=== PATIENT | female | born 2000 | race Two or more races ===

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

== ENCOUNTER 2021-02-03 07:49 | Outpatient (REF) | payer OTHER, SELFPAY ==
[2021-02-03 08:10] LABS: COVID-19 Test Negative (Negative)
== END 2021-02-03 07:50 | disposition home or self-care (01) ==
LOC: HO.EMPCOV 07:49
PROVIDERS: Visit Provider Internal Medicine
DX: Z20.822 Contact with and (suspected) exposure to COVID-19 (principal)
CPT/HCPCS: 36415; 87635; C9803

== ENCOUNTER → 2021-05-25 11:22 | Outpatient (BNVA) | payer OTHER, SELFPAY | DX: Z13.89 Encounter for screening for other disorder (principal); Z20.822 Contact with and (suspected) exposure to COVID-19 | CPT/HCPCS: 36415; 87635; C9803 ==

== ENCOUNTER 2021-07-23 17:36 | Emergency (ER) | payer OTHER, SELFPAY ==
[2021-07-23 17:47] VITALS: BP 119/53; BP 120/75; PULSE 82; PULSE 84; RESP 16; TEMP 37.2; O2SAT 100; O2SAT 97; BMI 31.1
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
[2021-07-23] MEDS: Ibuprofen 600 MG TABLET PO (18:39)
[2021-07-23] MEDS: Acetaminophen 325 MG TABLET 975 MG PO (18:39)
== END 2021-07-23 18:27 | disposition home or self-care (01) ==
PROVIDERS: Emergency Provider Emergency Medicine Emergency Medical Services; PCP Pediatrics
DX: S16.1XXA Strain of muscle, fascia and tendon at neck level, initial encounter (principal); S40.021A Contusion of right upper arm, initial encounter; M54.2 Cervicalgia; M79.621 Pain in right upper arm; V43.62XA Car passenger injured in collision with other type car in traffic accident, initial encounter; Y93.9 Activity, unspecified; Y92.410 Unspecified street and highway as the place of occurrence of the external cause; Y99.9 Unspecified external cause status; Z79.899 Other long term (current) drug therapy
CPT/HCPCS: 99283; 99284

== ENCOUNTER 2021-08-15 16:57 | Outpatient (REF) | payer OTHER, SELFPAY | END 2021-08-15 16:58 | disposition home or self-care (01) | LOC: HO.LNP 16:57 | PROVIDERS: Visit Provider Obstetrics & Gynecology | DX: Z13.89 Encounter for screening for other disorder (principal) | CPT/HCPCS: 87480; 87510; 87660 ==

== ENCOUNTER 2021-08-16 12:15 | Outpatient (REF) | payer OTHER, SELFPAY ==
[2021-08-16 12:26] LABS: MANUAL DIFF FLAG NO
[2021-08-16 12:40] LABS: Basophils Percent Auto 0.4 % (0-2); Eosinophils Absolute Auto 0.1 X10*3/uL (0.0-0.4); Eosinophils Percent Auto 1.5 % (0-4); Hematocrit 39.4 % (37.0-47.0); Hemoglobin 12.9 g/dl (12.0-16.0); Imm Gran Abs Auto 0.02 X10*3/uL (0.00-0.03); Imm Gran Pct Auto 0.2 % (0.0-0.4); Lymphocytes Absolute Auto 2.3 X10*3/uL (1.2-4.9); Lymphocytes Percent Auto 26.8 % (20-40); Mean Corpuscular HGB Conc 32.7 g/dl (31.0-35.0); Mean Corpuscular Hemoglobin 31.5 pg (27.0-33.0); Mean Corpuscular Volume 96.1 fL (80.0-98.0); Mean Platelet Volume 10.5 fL (9.4-12.3); Monocytes Absolute Auto 0.6 X10*3/uL (0.1-1.2); Monocytes Percent Auto 6.9 % (2-11); Neutrophils Absolute Auto 5.46 x10*3/uL (2.0-8.3); Neutrophils Percent Auto 64.2 % (45-73); Platelet Count 329 X10*3/uL (160-400); Red Cell Distribution Width 13.5 % (11.0-16.0); White Blood Count 8.5 X10*3/uL (4.8-10.8)
[2021-08-16 13:32] LABS: Thyroid Stimulating Hormone 0.31 uIU/mL (0.32-4.0)
== END 2021-08-16 12:16 | disposition home or self-care (01) ==
LOC: HO.LAB 12:15
PROVIDERS: PCP Pediatrics; Visit Provider Obstetrics & Gynecology
DX: N93.9 Abnormal uterine and vaginal bleeding, unspecified (principal)
CPT/HCPCS: 36415; 84443; 85025

== ENCOUNTER 2021-08-18 08:23 | Emergency (ER) | payer OTHER, SELFPAY ==
[2021-08-18 08:36] VITALS: BP 127/64; PULSE 82; RESP 16; TEMP 36.6; O2SAT 99; BMI 31.1
--- NOTE | 2021-08-18 09:06 | ED_ITS ---
HPI - URI/Sore Throat General Chief Complaint: Upper Respiratory Symptoms Stated Complaint: VOMTING STUFFY NOSE Time Seen by Provider: 08/18/21 09:05 Source: patient Mode of arrival: ambulatory Limitations: no limitations History of Present Illness HPI Narrative: 20-year-old female came in for evaluation of flu-like symptoms. Patient been having runny nose, sneezing, chills, coughing dry cough. Patient was seen at work connection tested for COVID. Related Data Previous Rx's Medication Instructions Recorded omeprazole 40 mg capsule,delayed 40 mg PO DAILY #14 cap 07/23/20 release ondansetron HCl 4 mg tablet 4 mg PO Q6H PRN #7 tab 07/23/20 (Zofran) Allergies Allergy/AdvReac Type Severity Reaction Status Date / Time No Known Allergies Allergy Verified 07/23/21 18:13 Review of Systems Review of Systems: All other systems are reviewed and are negative Constitutional: Reports as per HPI and Reports no additional constitutional complaints Eyes: Reports as per HPI and Reports no additional eye complaints Reports system reviewed and no additional complaints, except as documented Cardiovascular: Reports as per HPI and Reports no additional cardiovascular complaints Respiratory: Reports as per HPI and Reports no additional respiratory complaints Gastrointestinal: Reports as per HPI and Reports no additional gastrointestinal complaints Genitourinary: Reports no additional female genitourinary complaints Musculoskeletal: Reports no additional musculoskeletal complaints Skin/Breast: Reports system reviewed and no additional complaints, except as docu Psychiatric: Reports no additional psychiatric complaints Endocrine: Reports no additional endocrine complaints Hematologic/Lymphatic: Reports no additional hematologic/lymphatic complaints Allergic/Immunologic: Reports no additional allergic/immunologic complaints Reports system reviewed and no additional complaints, except as documented and Reports Abnormal speech present [facility] Past Medical History Medical History Asthma Syncope Social History Social History Alcohol intake: never Advance Directives: No Advance Directives Information Provided: No Physical Exam Vital Signs: Vital Signs: Last Vital Signs Temp 97.8 F 08/18/21 08:36 Pulse 82 08/18/21 08:36 Resp 16 08/18/21 08:36 BP 127/64 08/18/21 08:36 Pulse Ox 99 08/18/21 08:36 Body Mass Index 31.1 Vital signs have been reviewed as appeared to be correct. Blood pressure normal. Heart rate normal. Respiration rate normal. Temperature normal. Oxygen saturation normal. Appearance: Alert. Oriented X3. No acute distress. Head: Normal external exam. Normocephalic. Atraumatic. No [place] signs noted. No raccoon eyes noted Eyes: PERRLA. EOMI. Conjunctiva and sclera normal. Eyelids normal. ENT: TM's Normal. Pharynx normal. Uvula midline. Moist mucous membranes. No trismus noted. No drooling noted. No muffled voice noted. Neck: Normal inspection. Neck supple. FROM. No adenopathy. Thyroid Normal. No meningeal signs. No neck mass noted. CVS: Normal heart rate and rhythm. Heart sound normal. No murmurs noted. Pulses normal throughout. Respiratory: No respiratory distress. Painless inspiration. Breath sounds normal. No wheezes/rales/rhonchi noted. Chest nontender. No accessory muscle usage noted or decreased air movement noted. Abdomen: Soft and nontender. Bowel sounds normal in all 4 quadrants. No distention noted. No organomegaly noted. No visible injury noted. Back: No CVA tenderness. Full range of motion noted. Skin: Skin warm and dry. Normal skin color. Normal skin turgor. No rashes/lesions/lacerations noted. Extremities: No lower extremity edema. Extremities exhibit normal range of motion. Extremities nontender. Neuro: Oriented X 3. Cranial nerve exam: II-XII are grossly intact No motor deficit. No sensory deficit. Reflexes normal. Course Course Course Narrative: Upper respiratory symptoms likely due to viral infection. Discharge Plan Discharge Clinical Impression: Viral infection Patient Disposition: Home, Self-Care Instructions: Viral Syndrome (ED) Prescriptions: No Action ondansetron HCl [Zofran] 4 mg tablet 4 mg PO Q6H PRN (Reason: nausea and vomiting) Qty: 7 RF: 0 omeprazole 40 mg capsule,delayed release(DR/EC) 40 mg PO DAILY Qty: 14 RF: 0 Referrals: Ca Yousif MD [Primary Care Provider] - 2 days Stand Alone Forms: Work/School Release
[2021-08-18 09:49] LABS: COVID-19 Test Negative (Negative)
== END 2021-08-18 10:11 | disposition home or self-care (01) ==
PROVIDERS: Emergency Provider Emergency Medicine; PCP Pediatrics
DX: B34.9 Viral infection, unspecified (principal); J45.909 Unspecified asthma, uncomplicated; Z20.822 Contact with and (suspected) exposure to COVID-19
CPT/HCPCS: 36415; 87635; 99283

== ENCOUNTER 2021-11-04 01:49 | Emergency (ER) | payer OTHER, SELFPAY ==
[2021-11-04 02:31] VITALS: BP 109/58; PULSE 62; RESP 18; TEMP 37.1; O2SAT 100; BMI 64.5
[2021-11-04 03:22] LABS: Hematocrit 34.2 % (37.0-47.0); Hemoglobin 11.9 g/dl (12.0-16.0); Mean Corpuscular HGB Conc 34.8 g/dl (31.0-35.0); Mean Corpuscular Hemoglobin 32.2 pg (27.0-33.0); Mean Corpuscular Volume 92.4 fL (80.0-98.0); Mean Platelet Volume 10.8 fL (9.4-12.3); Platelet Count 230 X10*3/uL (160-400); Red Cell Distribution Width 12.8 % (11.0-16.0); White Blood Count 5.4 X10*3/uL (4.8-10.8)
[2021-11-04] MEDS: Ondansetron ODT 4 MG TAB.RAPDIS TRANSLINGU (03:26)
[2021-11-04 04:03] LABS: Alanine Aminotransferase 13 U/L (0-31); Albumin Level 4.2 g/dL (3.5-5.0); Alkaline Phosphatase 44 U/L (39-117); Anion Gap 15 (12-20); Aspartate Amino Transferase 17 U/L (5-31); Bilirubin Total 0.2 mg/dL (0.0-1.0); Blood Urea Nitrogen 6 mg/dL (9-16); Calcium 9.6 mg/dL (8.4-10.2); Carbon Dioxide 21 mmol/L (22-29); Chloride 107 mmol/L (96-108); Estimated Glomerular Filt Rate > 60; Glucose Random 122 mg/dL (60-115); Potassium 3.9 mmol/L (3.3-5.1); Sodium 139 mmol/L (135-145); Total Protein 7.7 g/dL (6.5-8.0)
--- NOTE | 2021-11-04 04:42 | ED_ITS ---
HPI - Abdominal Pain General Chief Complaint: Abdominal Pain Stated Complaint: can't keep food down, COVID + Time Seen by Provider: 11/04/21 02:24 Source: patient Mode of arrival: ambulatory History of Present Illness HPI narrative: 21-year-old female with known COVID-19 comes in with nausea and although she is able to drink water she is unable to tolerate very much food which is resulted in her feeling somewhat lightheaded and experiencing stomach pain. Otherwise, she denies any shortness of breath/palpitations/urinary symptoms. Related Data Previous Rx's Medication Instructions Recorded omeprazole 40 mg capsule,delayed 40 mg PO DAILY #14 cap 07/23/20 release ondansetron HCl 4 mg tablet 4 mg PO Q6H PRN #7 tab 07/23/20 (Zofran) ondansetron 4 mg disintegrating 4 mg PO Q6H PRN #7 tab 11/04/21 tablet Allergies Allergy/AdvReac Type Severity Reaction Status Date / Time No Known Allergies Allergy Verified 07/23/21 18:13 Review of Systems Review of Systems Pertinent positives and negatives as stated in HPI 10 point review of systems is otherwise negative. Physical Exam Vital Signs: Vital Signs: Last Vital Signs Temp 98.8 F 11/04/21 02:31 Pulse 62 11/04/21 02:31 Resp 18 11/04/21 02:31 BP 109/58 L 11/04/21 02:31 Pulse Ox 100 11/04/21 02:31 BMI result Body Mass Index 64.5 VITAL SIGNS: Reviewed. GENERAL: Well developed, well nourished, in no acute distress. HEAD: Normocephalic/atraumatic EYES: PERRLA, EOMI LUNGS: Normal breath sounds. No adventitious sounds or accessory muscle use. SpO2<100> CARDIOVASCULAR: Regular rate and rhythm without noted murmurs ABDOMEN: Soft, non-tender, non-distended with bowel sounds. NEUROLOGIC: Alert and oriented x 4. Course Course Course Narrative: 21-year-old female with history and clinical presentation consistent with COVID-19 positivity and feelings of nausea and vomiting that after receiving Zofran and on re-evaluation patient states that she feels much better. She was noted to tolerate oral intake prior to discharge and is other hinton discharged home in stable condition. MDM - Abdominal Pain Lab Data Result diagrams: 11/04/21 03:17 11/04/21 03:17 Labs: Lab Results 11/04/21 11/04/21 Range/Units 03:17 03:17 WBC 5.4 (4.8-10.8) X10*3/uL RBC 3.70 L (4.20-5.50) X10*6/uL Hgb 11.9 L (12.0-16.0) g/dl Hct 34.2 L (37.0-47.0) % MCV 92.4 (80.0-98.0) fL MCH 32.2 (27.0-33.0) pg MCHC 34.8 (31.0-35.0) g/dl RDW 12.8 (11.0-16.0) % Plt Count 230 D (160-400) X10*3/uL MPV 10.8 (9.4-12.3) fL Absolute Nucleated RBC 0.000 (0.0-0.012) X10*3/uL Nucleated RBC % (auto) 0.0 (0.0-0.2) /100WBC Sodium 139 (135-145) mmol/L Potassium 3.9 (3.3-5.1) mmol/L Chloride 107 (96-108) mmol/L Carbon Dioxide 21 L (22-29) mmol/L Anion Gap 15 (12-20) BUN 6 L (9-16) mg/dL Creatinine 0.72 (0.5-1.4) mg/dL Estim Creat Clear Calc 185.0 Estimated GFR > 60 Random Glucose 122 H (60-115) mg/dL Calcium 9.6 (8.4-10.2) mg/dL Total Bilirubin 0.2 (0.0-1.0) mg/dL AST 17 (5-31) U/L ALT 13 (0-31) U/L Alkaline Phosphatase 44 D (39-117) U/L Total Protein 7.7 (6.5-8.0) g/dL Albumin 4.2 (3.5-5.0) g/dL Discharge Plan Discharge Clinical Impression: Viral syndrome, Lab test positive for detection of COVID-19 virus, Nausea & vomiting Patient Disposition: Home, Self-Care Instructions: Acute Nausea and Vomiting (ED), Viral Syndrome (ED), COVID-19 (Coronavirus Disease 2019) (ED) Additional Instructions: 1. You must continue to isolate as per all state and Federal guidelines due to you being COVID-19 positive. 2. Increase fluid hydration especially with water. 3. You have been provided with a medication that should control your nausea so that you can rehydrate. Return to the ER for acute worsening of symptoms. Prescriptions: New ondansetron 4 mg tablet,disintegrating 4 mg PO Q6H PRN (Reason: nausea and vomiting) Qty: 7 RF: 0 No Action ondansetron HCl [Zofran] 4 mg tablet 4 mg PO Q6H PRN (Reason: nausea and vomiting) Qty: 7 RF: 0 omeprazole 40 mg capsule,delayed release(DR/EC) 40 mg PO DAILY Qty: 14 RF: 0 PMFSH Past Medical History Source: nursing notes reviewed Medical History Asthma Syncope Social History Social History Alcohol intake: never Advance Directives: No Advance Directives Information Provided: Yes
== END 2021-11-04 05:08 | disposition home or self-care (01) ==
PROVIDERS: Emergency Provider Student in an Organized Health Care Education/Training Program
DX: U07.1 COVID-19 (principal); B34.9 Viral infection, unspecified; R11.2 Nausea with vomiting, unspecified
CPT/HCPCS: 36415; 80053; 85027; 99282; 99283

== ENCOUNTER 2022-01-03 09:38 | Emergency (ER) | payer OTHER, SELFPAY ==
[2022-01-03 11:42] VITALS: BP 123/96; PULSE 62; RESP 18; TEMP 36.4; O2SAT 99; BMI 28.3
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
== END 2022-01-03 12:13 | disposition home or self-care (01) ==
PROVIDERS: Emergency Provider Emergency Medicine Emergency Medical Services; PCP Pediatrics
DX: Z04.1 Encounter for examination and observation following transport accident (principal); M54.50 Low back pain, unspecified
CPT/HCPCS: 99283

== ENCOUNTER 2022-01-18 15:08 | Emergency (ER) | payer OTHER, SELFPAY ==
--- NOTE | ~2022-01-18 | XR_ITS ---
EXAMINATION: XR CHEST CLINICAL INFORMATION: Atypical pneumonia. COMPARISON: Chest x-ray 03/02/2019 TECHNIQUE: Frontal portable view of the chest was obtained. 4:24 PM FINDINGS: No significant abnormality is noted involving the heart, lungs, mediastinum, bony thorax or soft tissues. XR/XR chest 1V IMPRESSION: Unremarkable examination.
[2022-01-18 15:35] VITALS: BP 136/69; PULSE 96; RESP 18; TEMP 36.1; O2SAT 100; BMI 28.3
--- NOTE | 2022-01-18 16:06 | ED.NAVMDI ---
HPI - Nausea/Vomiting/Diarrhea General Chief complaint: Nausea/Vomiting/Diarrhea Stated complaint: vomiting/chills Time Seen by Provider: 01/18/22 15:55 Source: patient Mode of arrival: ambulatory Limitations: no limitations History of Present Illness HPI Narrative: 21-year-old female presents to ED for dry cough, chills, body aches, and some vomiting since last night. Patient states her cousin was also had similar symptoms plus diarrhea. Patient denies any chest pain or shortness of breath. Patient had COVID swab done this morning at work [employer] and it was negative. Patient denies any abdominal pain, flank pain, or any dysuria/hematuria. Related Data Previous Rx's Medication Instructions Recorded omeprazole 40 mg capsule,delayed 40 mg PO DAILY #14 cap 07/23/20 release ondansetron HCl 4 mg tablet 4 mg PO Q6H PRN #7 tab 07/23/20 (Zofran) ondansetron 4 mg disintegrating 4 mg PO Q6H PRN #7 tab 11/04/21 tablet acetaminophen 500 mg tablet 500 mg PO Q6H PRN #20 tab 01/03/22 (Tylenol Extra Strength) lidocaine 5 % topical patch 1 patch TOPICAL DAILY PRN #30 ea 01/03/22 (Lidoderm) MDD remove after 12 hours naproxen 500 mg tablet 500 mg PO BID PRN 10 Days #20 tab 01/03/22 ondansetron HCl 4 mg tablet 4 mg PO Q8H PRN 4 Days #12 tab 01/18/22 Allergies Allergy/AdvReac Type Severity Reaction Status Date / Time No Known Allergies Allergy Verified 07/23/21 18:13 Review of Systems Review of Systems: nausea, vomitting, chills, bodyaches, dry cough Yes all other systems are reviewed and are negative PMF Past Medical History Medical History Asthma Syncope Social History Social History Alcohol intake: never Advance Directives: No Advance Directives Information Provided: No Patient : No Physical Exam Vital Signs: Vital Signs: Last Vital Signs Temp 97.0 F 01/18/22 15:35 Pulse 96 01/18/22 15:35 Resp 18 01/18/22 15:35 BP 136/69 01/18/22 15:35 Pulse Ox 100 01/18/22 15:35 BMI result Body Mass Index 28.3 Const: General: cooperative, healthy appearing, comfortable, no acute distress, well developed, alert, awake and Physically active Orientation/consciousness: oriented to place, oriented to time and patient oriented x3 HEENT: Head: Yes normal to inspection, Yes No palpable skull fracture present, Yes normocephalic, Yes atraumatic and No abrasion Ears: hearing grossly normal bilaterally, external ears normal, TM's normal bilaterally, EAC's normal, mastoids normal and no periauricular adenopathy Eyes: General: appearance normal, both eyes and all related structures Neck: Neck: Yes normal visual inspection, Yes full ROM, Yes no lymphadenopathy, Yes no meningeal signs, Yes trachea midline, Yes supple, No anterior neck swelling and No tender Chest: Chest palpation & inspection: normal inspection of the chest and normal palpation of entire chest wall Resp: Effort & Inspection: normal respiratory effort and able to speak in complete sentences Auscultation: clear to auscultation bilaterally Cardio: Jugular venous distension: no JVD Heart sounds: S1 normal heart sound present and S2 normal heart sound present GI: Inspection: Yes normal to inspection and No abdominal wall ecchymosis Palpation (GI): Soft to palpation, not firm, nontender, no guarding and not rigid : General: No CVA tenderness and Yes no CVA tenderness Back/Spine/Pelvis: Back: no CVA tenderness, No CVA tenderness and No back tenderness Skin: General skin exam: no rashes or lesions noted and elasticity normal Neuro: General: oriented to place, oriented to time, patient oriented x3 and no meningeal signs Cranial nerves: Yes CN's II-XII intact bilaterally Extrem: General: Yes normal to inspection and Yes full ROM Psych: Appearance: grossly normal, well kempt and not disheveled Course Course Course Narrative: Patient states normal COVID swab this morning in work connection was negative. . Will do influenza swab. Will order chest xray. Strep and UA/UCG. Reevaluation(s) Reevaluation #1: Influenza swab negative pending chest x-ray. Pending strep. Pending UA. We will do basic labs. Patient denies any abdominal pain and has no abdominal tenderness. Time: 16:37 Reevaluation #2: Patient urine shows blood. Patient states presently she is on her menstruation and does not have any symptoms. No need for any abdominal imaging. Patient does not have any abdominal pain or abdominal tenderness. Not suspecting any abdominal medical or surgical emergent etiology. Patient will be discharged on Zofran. Patient informed to follow-up with primary care provider. Patient informed to return to ED immediately if symptoms worsen. Time: 17:49 MDM - Nausea/Vomiting/Diarrhea MDM Narrative Medical decision making narrative: Viral syndrome. Lab Data Result diagrams: 01/18/22 16:39 01/18/22 16:39 Labs: Lab Results 01/18/22 01/18/22 01/18/22 Range/Units 15:38 16:33 16:39 WBC 9.9 (4.8-10.8) X10*3/uL RBC 4.18 L (4.20-5.50) X10*6/uL Hgb 12.9 (12.0-16.0) g/dl Hct 38.6 (37.0-47.0) % MCV 92.3 (80.0-98.0) fL MCH 30.9 (27.0-33.0) pg MCHC 33.4 (31.0-35.0) g/dl RDW 13.4 (11.0-16.0) % Plt Count 303 D (160-400) X10*3/uL MPV 10.5 (9.4-12.3) fL Immature Gran % (Auto) 0.2 (0.0-0.4) % Neut % (Auto) 85.6 H (45-73) % Lymph % (Auto) 9.3 L (20-40) % [place] % (Auto) 4.3 (2-11) % Eos % (Auto) 0.3 (0-4) % Baso % (Auto) 0.3 (0-2) % Lymph # (Auto) 0.9 L (1.2-4.9) X10*3/uL [place] # (Auto) 0.4 (0.1-1.2) X10*3/uL Eos # (Auto) 0.0 (0.0-0.4) X10*3/uL Baso # (Auto) 0.0 (0.0-0.2) X10*3/uL Abs Immat Gran (auto) 0.02 (0.00-0.03) X10*3/uL Absolute Neuts (auto) 8.5 H (2.0-8.3) x10*3/uL Absolute Nucleated RBC 0.000 (0.0-0.012) X10*3/uL Nucleated RBC % (auto) 0.0 (0.0-0.2) /100WBC Sodium (135-145) mmol/L Potassium (3.3-5.1) mmol/L Chloride (96-108) mmol/L Carbon Dioxide (22-29) mmol/L Anion Gap (12-20) BUN (9-16) mg/dL Creatinine (0.5-1.4) mg/dL Estim Creat Clear Calc Estimated GFR Random Glucose (60-115) mg/dL Calcium (8.4-10.2) mg/dL Total Bilirubin (0.0-1.0) mg/dL AST (5-31) U/L ALT (0-31) U/L Alkaline Phosphatase (39-117) U/L Total Protein (6.5-8.0) g/dL Albumin (3.5-5.0) g/dL Lipase (8-78) U/L Beta HCG, Quant mIU/mL Urine Color Urine Appearance Urine pH (5.0-8.0) Ur Specific [place] (1.005-1.025) Urine Protein (NEG-TRACE) MG/DL Urine Glucose (UA) (NEG) MG/DL Urine Ketones (NEG) MG/DL Urine Blood (NEG) Urine Nitrite (NEG) Ur Leukocyte Esterase (NEG) Urine RBC (0) /HPF Urine WBC (0-4) /HPF Ur Squamous Epith Cells /LPF Urine Bacteria /LPF Urine Test (NEGATIVE) Influenza Type A (ALLEY) Negative (Negative) Influenza Type B (ALLEY) Negative (Negative) Influenza A & B Note See Note S. pyogenes GrpA ALLEY Negative (Negative) 01/18/22 01/18/22 01/18/22 Range/Units 16:39 16:53 16:53 WBC (4.8-10.8) X10*3/uL RBC (4.20-5.50) X10*6/uL Hgb (12.0-16.0) g/dl Hct (37.0-47.0) % MCV (80.0-98.0) fL MCH (27.0-33.0) pg MCHC (31.0-35.0) g/dl RDW (11.0-16.0) % Plt Count (160-400) X10*3/uL MPV (9.4-12.3) fL Immature Gran % (Auto) (0.0-0.4) % Neut % (Auto) (45-73) % Lymph % (Auto) (20-40) % [place] % (Auto) (2-11) % Eos % (Auto) (0-4) % Baso % (Auto) (0-2) % Lymph # (Auto) (1.2-4.9) X10*3/uL [place] # (Auto) (0.1-1.2) X10*3/uL Eos # (Auto) (0.0-0.4) X10*3/uL Baso # (Auto) (0.0-0.2) X10*3/uL Abs Immat Gran (auto) (0.00-0.03) X10*3/uL Absolute Neuts (auto) (2.0-8.3) x10*3/uL Absolute Nucleated RBC (0.0-0.012) X10*3/uL Nucleated RBC % (auto) (0.0-0.2) /100WBC Sodium 140 (135-145) mmol/L Potassium 4.1 (3.3-5.1) mmol/L Chloride 104 (96-108) mmol/L Carbon Dioxide 25 (22-29) mmol/L Anion Gap 15 (12-20) BUN 8 L (9-16) mg/dL Creatinine 0.78 (0.5-1.4) mg/dL Estim Creat Clear Calc 105.7 Estimated GFR > 60 Random Glucose 102 (60-115) mg/dL Calcium 10.1 (8.4-10.2) mg/dL Total Bilirubin 1.0 (0.0-1.0) mg/dL AST 12 (5-31) U/L ALT 12 (0-31) U/L Alkaline Phosphatase 53 D (39-117) U/L Total Protein 7.7 (6.5-8.0) g/dL Albumin 4.3 (3.5-5.0) g/dL Lipase 7 L (8-78) U/L Beta HCG, Quant < 2 mIU/mL Urine Color YELLOW Urine Appearance CLEAR Urine pH 8.5 H (5.0-8.0) Ur Specific [place] 1.015 (1.005-1.025) Urine Protein 1+ H (NEG-TRACE) MG/DL Urine Glucose (UA) NEG (NEG) MG/DL Urine Ketones NEG (NEG) MG/DL Urine Blood 2+ H (NEG) Urine Nitrite NEG (NEG) Ur Leukocyte Esterase NEG (NEG) Urine RBC 5-9 H (0) /HPF Urine WBC 0 (0-4) /HPF Ur Squamous Epith Cells 2+ /LPF Urine Bacteria NONE /LPF Urine Test NEGATIVE (NEGATIVE) Influenza Type A (ALLEY) (Negative) Influenza Type B (ALLEY) (Negative) Influenza A & B Note S. pyogenes GrpA ALLEY (Negative) Discharge Plan Discharge Clinical Impression: Acute viral syndrome, Gastroenteritis Patient Disposition: Home, Self-Care Instructions: Gastroenteritis (DC), Acute Nausea and Vomiting (ED), Viral Syndrome (ED) Additional Instructions: Your blood work came back normal. Influenza strep test came back normal. CHest xray negative for pneumonia. You-re vital signs are stable. Please follow-up with your primary care provider. Return to the ED for any abdominal pain, dysuria, hematuria, flank pain, shortness of breath, chest pain, coughing up blood, calf pain, sore throat, inability to tolerate solid food/liquid, weakness, dizziness, or any other concerning symptoms. Recommend brat diet ( [place], Rice, applesauce, toast, crackers, and broth.) Prescriptions: New ondansetron HCl 4 mg tablet 4 mg PO Q8H PRN (Reason: nausea and vomiting) 4 Days Qty: 12 0RF No Action ondansetron HCl [Zofran] 4 mg tablet 4 mg PO Q6H PRN (Reason: nausea and vomiting) Qty: 7 0RF omeprazole 40 mg capsule,delayed release(DR/EC) 40 mg PO DAILY Qty: 14 0RF ondansetron 4 mg tablet,disintegrating 4 mg PO Q6H PRN (Reason: nausea and vomiting) Qty: 7 0RF acetaminophen [Tylenol Extra Strength] 500 mg tablet 500 mg PO Q6H PRN (Reason: pain or fever) Qty: 20 0RF lidocaine [Lidoderm] 5 % adhesive patch,medicated 1 patch topical DAILY MDD remove after 12 hours PRN (Reason: pain) Qty: 30 0RF Rx Instructions: leave on most painful area for up to 12 hrs naproxen 500 mg tablet 500 mg PO BID PRN (Reason: pain) 10 Days Qty: 20 0RF Stand Alone Forms: Work/School Release Interventions: ED Discharge Assessment Last Done: 01/18/22 18:01 Discharge Date/Time: 01/18/22 18:03 Print Language: [place]
[2022-01-18 16:20] LABS: Influenza A Negative (Negative); Influenza B2 Negative (Negative)
[2022-01-18 16:44] LABS: MANUAL DIFF FLAG NO
[2022-01-18 16:46] LABS: Basophils Percent Auto 0.3 % (0-2); Eosinophils Percent Auto 0.3 % (0-4); Hematocrit 38.6 % (37.0-47.0); Hemoglobin 12.9 g/dl (12.0-16.0); Imm Gran Abs Auto 0.02 X10*3/uL (0.00-0.03); Imm Gran Pct Auto 0.2 % (0.0-0.4); Lymphocytes Absolute Auto 0.9 X10*3/uL (1.2-4.9); Lymphocytes Percent Auto 9.3 % (20-40); Mean Corpuscular HGB Conc 33.4 g/dl (31.0-35.0); Mean Corpuscular Hemoglobin 30.9 pg (27.0-33.0); Mean Corpuscular Volume 92.3 fL (80.0-98.0); Mean Platelet Volume 10.5 fL (9.4-12.3); Monocytes Absolute Auto 0.4 X10*3/uL (0.1-1.2); Monocytes Percent Auto 4.3 % (2-11); Neutrophils Absolute Auto 8.5 x10*3/uL (2.0-8.3); Neutrophils Percent Auto 85.6 % (45-73); Platelet Count 303 X10*3/uL (160-400); Red Blood Count 4.18 X10*6/uL (4.20-5.50); Red Cell Distribution Width 13.4 % (11.0-16.0); White Blood Count 9.9 X10*3/uL (4.8-10.8)
[2022-01-18] MEDS: Ondansetron ODT 4 MG TAB.RAPDIS TRANSLINGU (16:48)
[2022-01-18] MEDS: Metoclopramide HCl 10 MG TABLET PO (16:49)
[2022-01-18 16:59] LABS: Strep A Nucleic Acid Negative (Negative)
[2022-01-18 17:00] LABS: Appearance Urine CLEAR; Color Urine YELLOW; Glucose Urine UA NEG (NEG); Leukocyte Esterase Urine NEG (NEG); Nitrite Urine NEG (NEG); PH 8.5 (5.0-8.0); Specific Gravity - Urine 1.015 (1.005-1.025); UACC Culture Trigger NO; Urine Blood 2+ (NEG); Urine Ketones NEG (NEG)
[2022-01-18 17:01] LABS: Urine Protein 1+ MG/DL (NEG-TRACE)
[2022-01-18 17:02] LABS: Urine Pregnancy NEGATIVE (NEGATIVE)
[2022-01-18 17:03] LABS: UPreg QC Valid YES
[2022-01-18 17:10] LABS: Alanine Aminotransferase 12 U/L (0-31); Albumin Level 4.3 g/dL (3.5-5.0); Alkaline Phosphatase 53 U/L (39-117); Anion Gap 15 (12-20); Aspartate Amino Transferase 12 U/L (5-31); Blood Urea Nitrogen 8 mg/dL (9-16); Calcium 10.1 mg/dL (8.4-10.2); Carbon Dioxide 25 mmol/L (22-29); Chloride 104 mmol/L (96-108); Creatinine Clr Calc Pharmacy 105.7; Estimated Glomerular Filt Rate > 60; Glucose Random 102 mg/dL (60-115); Lipase 7 U/L (8-78); Potassium 4.1 mmol/L (3.3-5.1); Sodium 140 mmol/L (135-145); Total Protein 7.7 g/dL (6.5-8.0)
[2022-01-18 17:16] LABS: HCG Quantitative < 2 mIU/mL
[2022-01-18 17:41] LABS: Squamous Epithelial Cell Urine 2+ /LPF; WBC Urine 0 /HPF (0-4)
== END 2022-01-18 18:03 | disposition home or self-care (01) ==
PROVIDERS: Physician Assistant; Emergency Provider Emergency Medicine; PCP Pediatrics
DX: A08.4 Viral intestinal infection, unspecified (principal); B34.9 Viral infection, unspecified; R11.2 Nausea with vomiting, unspecified; R19.7 Diarrhea, unspecified; M79.10 Myalgia, unspecified site; Z79.899 Other long term (current) drug therapy; Z20.822 Contact with and (suspected) exposure to COVID-19
CPT/HCPCS: 36415; 71045; 80053; 81001; 81003; 81025; 83690; 84702; 85025; 87502; 87651; 99283

== ENCOUNTER 2022-04-26 03:52 | Emergency (ER) | payer OTHER, SELFPAY ==
[2022-04-26 04:25] VITALS: BP 117/69; PULSE 82; RESP 16; TEMP 36.9; O2SAT 98; BMI 27.4
[2022-04-26 05:44] LABS: COVID-19 Test Negative (Negative); IDNOW Serial# 08D9AD1C; Influenza A Negative (Negative); Influenza B2 Negative (Negative)
== END 2022-04-26 06:44 | disposition left against medical advice (07) ==
PROVIDERS: Emergency Provider Emergency Medicine
DX: R11.2 Nausea with vomiting, unspecified (principal); R53.83 Other fatigue; Z20.822 Contact with and (suspected) exposure to COVID-19
CPT/HCPCS: 87502; 87635; 99281; 99283

== ENCOUNTER 2022-06-19 22:08 | Emergency (ER) | payer OTHER, SELFPAY ==
[2022-06-19 22:19] VITALS: BP 122/71; PULSE 74; RESP 18; TEMP 36.7; O2SAT 99; BMI 27.4
[2022-06-19 22:34] LABS: Appearance Urine Clear; Color Urine Yellow; Glucose Urine UA Negative (Negative); Leukocyte Esterase Urine Trace (Negative); Nitrite Urine Negative (Negative); Specific Gravity - Urine 1.015 (1.005-1.025); Urine Blood Negative (Negative); Urine Ketones Negative (Negative); Urine Protein Negative (Neg-Trace)
[2022-06-19 22:39] LABS: Bacteria Urine None Seen (None Seen); Hyaline Casts Urine 0-2 /LPF (0-2); RBC Urine 0-2 /HPF (0-2); WBC Urine 0-5 /HPF (0-5)
[2022-06-19 22:57] LABS: Urine Pregnancy NEGATIVE (NEGATIVE)
[2022-06-19 22:58] LABS: UPreg QC Valid YES
--- NOTE | 2022-06-19 23:10 | ED_ITS ---
HPI - Female Genitourinary General Chief complaint: Urogenital-Female Stated complaint: UTI? Time Seen by Provider: 06/19/22 22:50 Source: patient Mode of arrival: ambulatory Limitations: no limitations History of Present Illness HPI Narrative: 21-year-old female healthy here with complaints of dysuria x 3 days. Called her OBGYN and was prescribed Diflucan which she took 2 doses of but continues to have symptoms. No vaginal discharge, vaginal odor, pelvic pain, vomiting, fever, flank pain. Patient is sexually active with 1 male partner Related Data Previous Rx's Medication Instructions Recorded omeprazole 40 mg capsule,delayed 40 mg PO DAILY #14 caps 07/23/20 release ondansetron HCl 4 mg tablet 4 mg PO Q6H PRN nausea and 07/23/20 (Zofran) vomiting #7 tabs ondansetron 4 mg disintegrating 4 mg PO Q6H PRN nausea and 11/04/21 tablet vomiting #7 tabs acetaminophen 500 mg tablet 500 mg PO Q6H PRN pain or fever 01/03/22 (Tylenol Extra Strength) #20 tabs lidocaine 5 % topical patch 1 patch topical DAILY PRN pain #30 01/03/22 (Lidoderm) ea naproxen 500 mg tablet 500 mg PO BID PRN pain 10 days #20 01/03/22 tabs ondansetron HCl 4 mg tablet 4 mg PO Q8H PRN nausea and 01/18/22 vomiting 4 days #12 tabs Allergies Allergy/AdvReac Type Severity Reaction Status Date / Time No Known Allergies Allergy Verified 06/19/22 22:14 Review of Systems Review of Systems: Yes all other systems are reviewed and are negative Constitutional: Constitutional: Reports no additional constitutional complaints, Denies body ache(s), Denies chills, Denies fever(s), Denies headache(s) and Denies weakness Eyes: Eyes: Reports no additional eye complaints and Denies change in vision ENT: Reports system reviewed and no additional complaints, except as documented, Denies dizziness, Denies headache(s), Denies nasal congestion, Denies nasal discharge and Denies neck pain Cardiovascular: Cardiovascular: Reports no additional cardiovascular complaints, Denies chest pain, Denies leg edema and Denies dyspnea Respiratory: Respiratory: Reports no additional respiratory complaints, Denies cough and Denies dyspnea Gastrointestinal: Gastrointestinal: Reports no additional gastrointestinal complaints, Denies abdominal pain, Denies diarrhea, Denies nausea and Denies vomiting Genitourinary: Genitourinary: Reports no additional female genitourinary complaints, Reports dysuria, Denies pelvic pain, Denies flank pain, Denies urinary incontinence, Denies urinary hesitancy, Denies urinary urgency and Denies vaginal discharge Musculoskeletal: Musculoskeletal: Reports no additional musculoskeletal complaints, Denies back pain, Denies arthralgias, Denies joint swelling, Denies neck pain, Denies numbness and Denies tingling Integumentary/Breasts: Skin/Breast: Reports system reviewed and no additional complaints, except as docu and Denies rash Neurologic: Reports system reviewed and no additional complaints, except as documented, Denies Abnormal speech present, Denies dizziness, Denies headache(s), Denies numbness, Denies tingling and Denies weakness PMFSH Past Medical History Attestation statement: The following information was validated with the patient. Source: old records reviewed and nursing notes reviewed Medical History Asthma Syncope Social History Social History Alcohol intake: never Advance Directives: No Advance Directives Information Provided: Yes Physical Exam Vital Signs: Vital Signs: Last Vital Signs Temp 98.1 F 06/19/22 22:19 Pulse 74 06/19/22 22:19 Resp 18 06/19/22 22:19 BP 122/71 06/19/22 22:19 Pulse Ox 99 06/19/22 22:19 O2 Del Method 06/19/22 22:19 BMI result Body Mass Index 27.4 Const: General: cooperative, healthy appearing, comfortable and no acute distress Orientation/consciousness: patient oriented x3 Limitations: no limitations HEENT: Head: Yes normal to inspection Ears: hearing grossly normal bilaterally General nose exam: Normal external nose present Face and sinus: Yes normal facial exam Mouth: Normal oral and palatal mucosa present Throat: Yes posterior oropharynx normal Eyes: General: appearance normal, both eyes and all related structures Pupils: Equal, round and reactive pupils present Neck: Neck: Yes normal visual inspection Chest: Chest palpation & inspection: normal inspection of the chest Resp: Effort & Inspection: normal respiratory effort Auscultation: clear to auscultation bilaterally Cardio: Rate: regular rate Rhythm: regular rhythm Peripheral pulses: Peripheral pulses 2+ throughout GI: Inspection: Yes normal to inspection Palpation (GI): Soft to palpation and nontender Auscultation: normal bowel sounds : Other: January RN riding double External Female Exam: normal external appearance Speculum Exam - Vagina: normal appearance of the vagina Speculum Exam - Cervix: normal appearance of the cervix Bimanual exam- vagina & uterus: normal bimanual exam Bimanual Exam- Adnexa, other: normal adnexae Back/Spine/Pelvis: Thoracic/Lumbar Spine: thoracic and lumbar spine normal to inspection Skin: General skin exam: no rashes or lesions noted Neuro: General: patient oriented x3, no focal motor deficits and normal sensation to monofilament Cranial nerves: Yes Equal, round and reactive pupils present Cognition (Neuro): normal cognition Speech: No Abnormal speech present Gait exam (Neuro): Normal gait present Motor exam (neuro): 5/5 motor strength present throughout Extrem: General: Yes normal to inspection Course Course Course Narrative: UA shows no signs of infection. Normal pelvic exam. STI testing and testing for BV and Amber were sent. Patient would like to wait for treatment pending her resolved. She is aware that she may need to return for treatment. Reviewed worrisome signs and symptoms of when to return to the emergency room. Comfortable discharge home. MDM - Female Genitourinary MDM Narrative Medical decision making narrative: 21 year old female who sexually active here with 3 days of dysuria despite completing Diflucan Will need pelvic exam with testing for gonorrhea, chlamydia, BV panel. Medical Records Attestation: I reviewed the patient's medical records. Lab Data Attestation: I reviewed the patient's lab results. Labs: Lab Results 06/19/22 06/19/22 Range/Units 22:17 22:17 Urine Color Yellow Urine Appearance Clear Urine pH 6.0 (5.0-9.0) Ur Specific [place] 1.015 (1.005-1.025) Urine Protein Negative (Neg-Trace) mg/dL Urine Glucose (UA) Negative (Negative) mg/dL Urine Ketones Negative (Negative) mg/dL Urine Blood Negative (Negative) Urine Nitrite Negative (Negative) Ur Leukocyte Esterase Trace H (Negative) Urine RBC 0-2 (0-2) /HPF Urine WBC 0-5 (0-5) /HPF Ur Squamous Epith Cells 3-5 (0-2) /HPF Urine Bacteria None Seen (None Seen) Hyaline Casts 0-2 (0-2) /LPF Urine Test NEGATIVE (NEGATIVE) Discharge Plan Discharge Clinical Impression: Dysuria Patient Disposition: Home, Self-Care Instructions: Dysuria (ED) Additional Instructions: Your urine shows no signs of infection We sent testing for sexually transmitted diseases as well as bacterial vaginosis and yeast. These results take 1-2 days and we will call you if they are positive. Prescriptions: No Action ondansetron HCl [Zofran] 4 mg tablet 4 mg PO Q6H PRN (Reason: nausea and vomiting) Qty: 7 0RF omeprazole 40 mg capsule,delayed release(DR/EC) 40 mg PO DAILY Qty: 14 0RF ondansetron 4 mg tablet,disintegrating 4 mg PO Q6H PRN (Reason: nausea and vomiting) Qty: 7 0RF ondansetron HCl 4 mg tablet 4 mg PO Q8H PRN (Reason: nausea and vomiting) 4 Days Qty: 12 0RF acetaminophen [Tylenol Extra Strength] 500 mg tablet 500 mg PO Q6H PRN (Reason: pain or fever) Qty: 20 0RF lidocaine [Lidoderm] 5 % adhesive patch,medicated 1 patch topical DAILY MDD remove after 12 hours PRN (Reason: pain) Qty: 30 0RF Rx Instructions: leave on most painful area for up to 12 hrs naproxen 500 mg tablet 500 mg PO BID PRN (Reason: pain) 10 Days Qty: 20 0RF Referrals: Ca Yousif MD [Primary Care Provider] - 1 week (as needed)
[2022-06-20 01:18] LABS: CT PCR NOT DETECTED (Not Detect.); NG PCR NOT DETECTED (Not Detect.)
[2022-06-20 11:02] LABS: BV Int Neg Control Negative (Negative); BV Int Pos Control Positive (Positive)
== END 2022-06-19 23:45 | disposition home or self-care (01) ==
PROVIDERS: Nurse Practitioner Family; Emergency Provider Internal Medicine; PCP Pediatrics
DX: N76.0 Acute vaginitis (principal); R30.0 Dysuria; Z79.899 Other long term (current) drug therapy
CPT/HCPCS: 81001; 81025; 87480; 87491; 87510; 87591; 87660; 99282; 99283

== ENCOUNTER 2022-08-04 13:50 | Emergency (ER) | payer OTHER, SELFPAY ==
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
[2022-08-04 14:01] VITALS: BP 128/80; PULSE 85; O2SAT 98
[2022-08-04 14:02] VITALS: BP 112/71; PULSE 70; RESP 18; TEMP 36.7; O2SAT 99
[2022-08-04 14:05] VITALS: BP 112/71; PULSE 80; RESP 18; O2SAT 98; BMI 31.8
--- OUTSIDE RECORDS SUMMARY | 2022-08-04 14:33 | XMS_ITS | Continuity of Care Document ---
:2000 Author Organization [facility] Address [address] [place] [address]- Care Team Providers Name Role Phone Ca Yousif MD Primary Care Physician Encounter [facility] [place] Date(s): 05/25/22 - 07/07/[address] [id number] Attending Physician: Malathi Sahu NP Admitting Physician: Malathi Sahu NP Referring Physician: Malathi Sahu NP Allergies, Adverse Reactions, Alerts No Known Allergies Care Team PersonnelName: Ca Yousif MD Address: [address] [place] [address] [facility] [place], [place] [address]
--- OUTSIDE RECORDS SUMMARY | 2022-08-04 14:33 | XMS_ITS | Continuity of Care Document ---
:2000 Author Organization [facility] Address [address] [place] [id number]- Care Team Providers Name Role Phone Ca Yousif MD Primary Care Physician Encounter [facility] [place] Date(s): 06/09/20 - 06/09/[address] [address] Encounter Diagnosis Headache (Final) - 06/09/20 Discharge Disposition: A-D/C Home Attending Physician: Vickie Gutierrez MD Admitting Physician: Vickie Gutierrez MD Referring Physician: Not on Staff, Referring MD Allergies, Adverse Reactions, Alerts Substance Reaction Severity Status NKA Active Vital Signs Most recent to oldest [Reference Range]: 1 2 Oxygen Saturation [94-100 %] 98 % 96 % (06/09/20 5:30 PM) (06/09/20 1:03 PM) Pulse Rate [55-90 bpm] 74 bpm 53 bpm (06/09/20 5:30 PM) *L* (06/09/20 1:03 PM) Blood Pressure [71-110/30-71 mm Hg] 107/67 mm Hg 130/ 59 mm Hg (06/09/20 5:30 PM) *H* (06/09/20 1:03 PM) Respiratory Rate [16-30 br/min] 20 br/min 16 br/mi n (06/09/20 5:30 PM) (06/09/20 1:03 PM) Temperature [96.8-100.4 DegF] 98.4 DegF 98.4 DegF (06/09/20 5:30 PM) (06/09/20 1:03 PM) Mode of Delivery (Oxygen) Room air Room air (06/09/20 5:30 PM) (06/09/20 1:03 PM) Blood pressure sites Arm, left Arm, left (06/09/20 5:30 PM) (06/09/20 1:03 PM) Temperature Route Oral Oral (06/09/20 5:30 PM) (06/09/20 1:03 PM)
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
[2022-08-04] MEDS: Cyclobenzaprine HCl 5 MG TABLET PO (15:46)
[2022-08-04] MEDS: Ketorolac Tromethamine 30 MG/ML VIAL IM (15:46)
== END 2022-08-04 16:25 | disposition home or self-care (01) ==
PROVIDERS: Emergency Provider Emergency Medicine
DX: Z04.1 Encounter for examination and observation following transport accident (principal); M54.2 Cervicalgia
CPT/HCPCS: 72125; 96372; 99283; 99284; J1885

== ENCOUNTER 2022-08-24 09:12 | Emergency (ER) | payer OTHER, SELFPAY ==
--- NOTE | ~2022-08-24 | XR_ITS ---
EXAMINATION: CR X-RAY FOREARM AND ELBOW RIGHT CLINICAL INFORMATION: Right forearm and elbow pain status post fall. COMPARISON: None TECHNIQUE: 3 views of the right elbow and 2 views of the right forearm were obtained. FINDINGS: There is no acute fracture or dislocation. The joint spaces are unremarkable. The soft tissues are unremarkable. XR/XR forearm RT 2V IMPRESSION: Unremarkable right elbow and forearm.
--- NOTE | ~2022-08-24 | XR_ITS ---
EXAMINATION: CR X-RAY FOREARM AND ELBOW RIGHT CLINICAL INFORMATION: Right forearm and elbow pain status post fall. COMPARISON: None TECHNIQUE: 3 views of the right elbow and 2 views of the right forearm were obtained. FINDINGS: There is no acute fracture or dislocation. The joint spaces are unremarkable. The soft tissues are unremarkable. XR/XR elbow RT 2V IMPRESSION: Unremarkable right elbow and forearm.
[2022-08-24 09:18] VITALS: BP 126/69; PULSE 67; RESP 16; TEMP 36.2; O2SAT 98; BMI 27.4
--- NOTE | 2022-08-24 10:09 | ED.EXTPRO ---
HPI - Extremity Problem General Chief complaint: Extremity Injury, Upper Stated complaint: fall 08/24/22 Time Seen by Provider: 08/24/22 09:52 Source: patient Mode of arrival: ambulatory Limitations: no limitations History of Present Illness HPI Narrative: Pt is an otherwise healthy 21 year old female who presents to the ED for right elbow/forearm pain s/p fall this morning. She states she was walking down the stairs around 0800 this morning when she tripped over her shoes and fell down 9 steps directly onto her right elbow and forearm. She denies any head strike, LOC, or other injuries. She describes having an aching pain around her elbow that radiates down into her forearm with associated swelling and numbness into her hand. She denies any previous injury to the affected extremity. She denies any fevers, chills, pre-syncope/syncope, dizziness, lightheadedness, CP, abdominal pain, and urinary symptoms now and prior to her fall. MD Complaint: extremity pain Onset (ago): hour(s) (2) Pain Consistency: constant Location: right, lower extremity and elbow Quality: aching Radiation: distal Relieving factors: nothing Exacerbating factors: nothing Associated symptoms: denies other symptoms Related Data Previous Rx's Medication Instructions Recorded omeprazole 40 mg capsule,delayed 40 mg PO DAILY #14 caps 07/23/20 release ondansetron HCl 4 mg tablet 4 mg PO Q6H PRN nausea and 07/23/20 (Zofran) vomiting #7 tabs ondansetron 4 mg disintegrating 4 mg PO Q6H PRN nausea and 11/04/21 tablet vomiting #7 tabs acetaminophen 500 mg tablet 500 mg PO Q6H PRN pain or fever 01/03/22 (Tylenol Extra Strength) #20 tabs lidocaine 5 % topical patch 1 patch topical DAILY PRN pain #30 01/03/22 (Lidoderm) ea naproxen 500 mg tablet 500 mg PO BID PRN pain 10 days #20 01/03/22 tabs ondansetron HCl 4 mg tablet 4 mg PO Q8H PRN nausea and 01/18/22 vomiting 4 days #12 tabs metronidazole 500 mg tablet 500 mg PO BID 7 days #14 tabs 06/22/22 acetaminophen 500 mg tablet 500 mg PO Q6H PRN fever or pain 08/04/22 (Tylenol Extra Strength) #14 tabs cyclobenzaprine 5 mg tablet 5 mg PO Q8H PRN pain (scale score 08/04/22 7-10) 5 days #14 tabs lidocaine 5 % topical patch 1 patch topical DAILY PRN pain #30 08/04/22 (Lidoderm) ea naproxen 500 mg tablet 500 mg PO BID PRN pain 10 days #20 08/04/22 tabs acetaminophen 500 mg tablet 1,000 mg PO QID PRN fever or pain 08/24/22 (Tylenol Extra Strength) #14 tabs ibuprofen 800 mg tablet 800 mg PO Q8H PRN pain #14 tabs 08/24/22 Allergies Allergy/AdvReac Type Severity Reaction Status Date / Time No Known Allergies Allergy Verified 08/24/22 09:18 Review of Systems Review of Systems: Constitutional : No recent prior head injury, No fevers, No chills, No HINOJOSA, No dizziness ENT/Mouth : No Ear Pain, No Nasal discharge/drainage Eyes: No Eye Pain, No Swelling, No Redness, No Foreign Body, No Vision Changes Cardiovascular : No Chest Pain, No SOB Respiratory : No Cough Gastrointestinal : No Nausea, No Vomiting, No abdominal Pain Genitourinary : No Dysuria, No Urinary Frequency, No Urinary Incontinence, No Urgency, No Flank Pain Musculoskeletal : + joint pain, No neck stiffness, No back pain/injury Skin : No lacerations Neuro : No unsteady gait, No Paresthesias, No Loss of Consciousness, No altered mental status, No Headache Yes all other systems are reviewed and are negative [facility] Past Medical History Attestation statement: The following information was validated with the patient. Source: old records reviewed, obtained from family and nursing notes reviewed Medical History Asthma Syncope Social History Social History Alcohol intake: never Advance Directives: No Physical Exam Vital Signs: Vital Signs: Last Vital Signs Temp 97.2 F 08/24/22 09:18 Pulse 67 08/24/22 09:18 Resp 16 08/24/22 09:18 BP 126/69 08/24/22 09:18 Pulse Ox 98 08/24/22 09:18 BMI result Body Mass Index 27.4 Vital signs have been reviewed as normal and appeared to be correct. Blood pressure normal. Heart rate normal. Respiration rate normal. Temperature normal. Oxygen saturation normal. Appearance: Alert and oriented x3. No acute distress. Laying comfortably in bed holding right elbow. Head: Normal external exam. Normocephalic. Atraumatic. Eyes: PERRLA. Conjunctiva and sclera normal. Eyelids normal. ENT: Hearing normal. Moist mucous membranes. No trismus noted. No drooling noted. No muffled voice noted. Neck: Normal inspection. Neck supple. FROM. Nontender. CVS: Normal heart rate and rhythm. Heart sound normal. Pulses normal throughout. Respiratory: No respiratory distress. Painless inspiration. Chest nontender. Abdomen: No visible injury noted. Back: Non tender. Normal range of motion. Skin: Skin warm and dry. Normal skin color. Normal skin turgor. No rashes/lesions/lacerations noted. Extremities: No obvious deformities noted. Mild ecchymosis forming over the proximal right forearm. Edema over the right elbow joint. Point tenderness over the right radial head. Tender to palpation over the proximal forearm. FROM of right elbow and wrist. NVI. No obvious ligamentous or tendon injury noted. All other extremities nontender and exhibit normal range of motion. Neuro: Oriented X 3. No focal motor deficits. Speech normal. Muscle tone normal throughout. Course Course Course Narrative: Pt is an otherwise healthy 21 year old female who presents to the ED for right elbow/forearm pain s/p fall this morning. She denies head injury, LOC, pre-syncope/syncope, and any other complaints. VSS. Mild ecchymosis forming over the proximal right forearm. Point tenderness over the right radial head. Tender to palpation over the proximal forearm. FROM of right elbow and wrist. NVI. Ordered x-ray of right elbow and forearm to r/o radial head fracture, proximal radius/ulna fracture, dislocation. No further workup needed for fall as pt was asymptomatic prior to fall and fall was mechanical in nature. Reevaluation(s) Reevaluation #1: X-rays of right elbow and forearm are negative for any fractures, dislocations, acute bony abnormalities. ABRAM wrap placed around right elbow. Discussed alternating Tylenol and ibuprofen for pain, RICE protocol, light ROM. Advised follow up with PCP in the next few days for repeat x-rays. Pt verbalized understanding and agrees to plan. Time: 10:28 MDM - Extremity (Nontraumatic) Lab Data Attestation: I reviewed the patient's lab results. Imaging Data right elbow/forearm xray: Attestation: I personally reviewed and interpreted this imaging study as follows: Radiologist's impression: EXAMINATION: CR X-RAY FOREARM AND ELBOW RIGHT CLINICAL INFORMATION: Right forearm and elbow pain status post fall.? COMPARISON: None? TECHNIQUE: 3 views of the right elbow and 2 views of the right forearm were obtained.? FINDINGS: There is no acute fracture or dislocation. The joint spaces are unremarkable. The soft tissues are unremarkable.? XR/XR forearm RT 2V IMPRESSION: Unremarkable right elbow and forearm. Discharge Plan Discharge Clinical Impression: Fall, Sprain of right elbow Patient Disposition: Home, Self-Care Instructions: How to Use an Elastic Bandage (ED), Elbow Sprain (ED) Prescriptions: New ibuprofen 800 mg tablet 800 mg PO Q8H PRN (Reason: pain) Qty: 14 0RF acetaminophen [Tylenol Extra Strength] 500 mg tablet 1,000 mg PO QID PRN (Reason: fever or pain) Qty: 14 0RF No Action ondansetron HCl [Zofran] 4 mg tablet 4 mg PO Q6H PRN (Reason: nausea and vomiting) Qty: 7 0RF omeprazole 40 mg capsule,delayed release(DR/EC) 40 mg PO DAILY Qty: 14 0RF ondansetron 4 mg tablet,disintegrating 4 mg PO Q6H PRN (Reason: nausea and vomiting) Qty: 7 0RF ondansetron HCl 4 mg tablet 4 mg PO Q8H PRN (Reason: nausea and vomiting) 4 Days Qty: 12 0RF metronidazole 500 mg tablet 500 mg PO BID 7 Days Qty: 14 0RF acetaminophen [Tylenol Extra Strength] 500 mg tablet 500 mg PO Q6H PRN (Reason: fever or pain) Qty: 14 0RF naproxen 500 mg tablet 500 mg PO BID PRN (Reason: pain) 10 Days Qty: 20 0RF cyclobenzaprine 5 mg tablet 5 mg PO Q8H PRN (Reason: pain (scale score 7-10)) 5 Days Qty: 14 0RF lidocaine [Lidoderm] 5 % adhesive patch,medicated 1 patch topical DAILY MDD remove after 12 hours PRN (Reason: pain) Qty: 30 0RF Rx Instructions: leave on most painful area for up to 12 hrs acetaminophen [Tylenol Extra Strength] 500 mg tablet 500 mg PO Q6H PRN (Reason: pain or fever) Qty: 20 0RF lidocaine [Lidoderm] 5 % adhesive patch,medicated 1 patch topical DAILY MDD remove after 12 hours PRN (Reason: pain) Qty: 30 0RF Rx Instructions: leave on most painful area for up to 12 hrs naproxen 500 mg tablet 500 mg PO BID PRN (Reason: pain) 10 Days Qty: 20 0RF Referrals: [facility] [place] [facility] [Provider Group] (If symptoms persist for longer than 2-3 weeks in you should have a repeat x-ray of further evaluation treatment) Ca Yousif MD [Primary Care Provider] - 2 days Stand Alone Forms: Work/School Release Interventions: ED Discharge Assessment Last Done: 08/24/22 11:04 Print Language: Argentine
== END 2022-08-24 11:07 | disposition home or self-care (01) ==
PROVIDERS: Emergency Provider Emergency Medicine Emergency Medical Services; PCP Pediatrics
DX: S53.401A Unspecified sprain of right elbow, initial encounter (principal); W10.8XXA Fall (on) (from) other stairs and steps, initial encounter; Y93.89 Activity, other specified; Y92.038 Other place in apartment as the place of occurrence of the external cause; Y99.9 Unspecified external cause status
CPT/HCPCS: 73070; 73090; 99283

== ENCOUNTER 2022-11-17 20:47 | Emergency (ER) | payer OTHER, SELFPAY ==
[2022-11-17 20:52] VITALS: BP 97/53; PULSE 64; RESP 20; TEMP 36.2; O2SAT 99; BMI 27.4
[2022-11-17] MEDS: Ondansetron ODT 4 MG TAB.RAPDIS TRANSLINGU (23:17)
[2022-11-17 23:27] LABS: Basophils Percent Auto 0.3 % (0-2); Eosinophils Absolute Auto 0.1 X10*3/uL (0.0-0.4); Eosinophils Percent Auto 0.9 % (0-4); Hematocrit 35.5 % (37.0-47.0); Hemoglobin 12.2 g/dl (12.0-16.0); Imm Gran Abs Auto 0.03 X10*3/uL (0.00-0.03); Imm Gran Pct Auto 0.3 % (0.0-0.4); Lymphocytes Absolute Auto 3.4 X10*3/uL (1.2-4.9); Lymphocytes Percent Auto 32.5 % (20-40); MANUAL DIFF FLAG NO; Mean Corpuscular HGB Conc 34.4 g/dl (31.0-35.0); Mean Corpuscular Hemoglobin 31.9 pg (27.0-33.0); Mean Corpuscular Volume 92.7 fL (80.0-98.0); Mean Platelet Volume 10.4 fL (9.4-12.3); Monocytes Absolute Auto 0.7 X10*3/uL (0.1-1.2); Monocytes Percent Auto 6.5 % (2-11); Neutrophils Absolute Auto 6.2 x10*3/uL (2.0-8.3); Neutrophils Percent Auto 59.5 % (45-73); Platelet Count 287 X10*3/uL (160-400); Red Blood Count 3.83 X10*6/uL (4.20-5.50); Red Cell Distribution Width 13.2 % (11.0-16.0); White Blood Count 10.4 X10*3/uL (4.8-10.8)
[2022-11-17 23:41] VITALS: BP 100/53; PULSE 60; RESP 14; TEMP 36.7; O2SAT 99
[2022-11-17 23:44] LABS: Appearance Urine Clear; Color Urine Yellow; Glucose Urine UA Negative (Negative); Leukocyte Esterase Urine Negative (Negative); Nitrite Urine Negative (Negative); Specific Gravity - Urine 1.025 (1.005-1.025); Urine Blood Negative (Negative); Urine Ketones Negative (Negative); Urine Protein Negative (Neg-Trace)
[2022-11-17 23:45] LABS: UPreg QC Valid YES; Urine Pregnancy POSITIVE (NEGATIVE)
--- NOTE | 2022-11-17 23:46 | ED_ITS ---
HPI - Nausea/Vomiting/Diarrhea General Chief complaint: Abdominal Pain Stated complaint: Vomiting Time Seen by Provider: 11/17/22 22:56 Source: patient Mode of arrival: ambulatory History of Present Illness HPI Narrative: 22-year-old female who presents with multiple episodes of nausea and vomiting with significant burning pain up into her chest since Sunday. Patient states that she was COVID positive last Sunday and currently denies any symptoms of nasal congestion/shortness of breath/fevers/chills. Patient denies any marijuana use. Patient denies any abdominal pain. Related Data Previous Rx's Medication Instructions Recorded omeprazole 40 mg capsule,delayed 40 mg PO DAILY #14 caps 07/23/20 release ondansetron HCl 4 mg tablet 4 mg PO Q6H PRN nausea and 07/23/20 (Zofran) vomiting #7 tabs ondansetron 4 mg disintegrating 4 mg PO Q6H PRN nausea and 11/04/21 tablet vomiting #7 tabs acetaminophen 500 mg tablet 500 mg PO Q6H PRN pain or fever 01/03/22 (Tylenol Extra Strength) #20 tabs lidocaine 5 % topical patch 1 patch topical DAILY PRN pain #30 01/03/22 (Lidoderm) ea naproxen 500 mg tablet 500 mg PO BID PRN pain 10 days #20 01/03/22 tabs ondansetron HCl 4 mg tablet 4 mg PO Q8H PRN nausea and 01/18/22 vomiting 4 days #12 tabs metronidazole 500 mg tablet 500 mg PO BID 7 days #14 tabs 06/22/22 acetaminophen 500 mg tablet 500 mg PO Q6H PRN fever or pain 08/04/22 (Tylenol Extra Strength) #14 tabs cyclobenzaprine 5 mg tablet 5 mg PO Q8H PRN pain (scale score 08/04/22 7-10) 5 days #14 tabs lidocaine 5 % topical patch 1 patch topical DAILY PRN pain #30 08/04/22 (Lidoderm) ea naproxen 500 mg tablet 500 mg PO BID PRN pain 10 days #20 08/04/22 tabs acetaminophen 500 mg tablet 1,000 mg PO QID PRN fever or pain 08/24/22 (Tylenol Extra Strength) #14 tabs ibuprofen 800 mg tablet 800 mg PO Q8H PRN pain #14 tabs 08/24/22 pyridoxine (vitamin B6) 25 mg 25 mg PO TID 30 days #90 tabs 11/18/22 tablet Allergies Allergy/AdvReac Type Severity Reaction Status Date / Time No Known Allergies Allergy Verified 11/17/22 21:02 Review of Systems Review of Systems: Pertinent positives and negatives as stated in [facility] Past Medical History Source: nursing notes reviewed Medical History Asthma Syncope Social History Social History Alcohol intake: never Advance Directives: No Advance Directives Information Provided: No Physical Exam Vital Signs: Vital Signs: Last Vital Signs Temp 98.1 F 11/17/22 23:41 Pulse 60 11/17/22 23:41 Resp 14 11/17/22 23:41 BP 100/53 L 11/17/22 23:41 Pulse Ox 99 11/17/22 23:41 O2 Del Method 11/17/22 23:41 BMI result Body Mass Index 27.4 VITAL SIGNS: Reviewed. GENERAL: Well developed, well nourished, in no acute distress. HEAD: Normocephalic/atraumatic EYES: PERRLA, EOMI LUNGS: Normal breath sounds. No adventitious sounds or accessory muscle use. SpO2<99> CARDIOVASCULAR: Regular rate and rhythm without noted murmurs ABDOMEN: Soft, non-tender, non-distended with bowel sounds. MUSCULOSKELETAL: No tenderness, deformities, or effusions noted on gross inspection. EXTREMITIES: No cyanosis, clubbing or edema. SKIN: Inspection of the skin reveals no rashes NEUROLOGIC: Alert and oriented x 4. Strength and sensation to light touch were grossly intact x 4. Medications Administered Discontinued Medications Generic Name Dose Route Start Last Admin Trade Name Freq PRN Reason Stop Dose Admin Al Hydroxide/Mg Hydroxide 30 ml 11/17/22 23:47 11/17/22 23:53 Magnesium Hydrox/Alum Hydrox 30 Ml Oral.Susp PO 11/17/22 23:48 30 ml ONCE ONE Administration Lidocaine HCl 10 ml 11/17/22 23:47 11/17/22 23:53 Lidocaine Hcl Viscous 2 % 15 Ml Solution MUCOUS MEM 11/17/22 23:48 10 ml ONCE ONE Administration Ondansetron HCl 4 mg 11/17/22 22:56 11/17/22 23:17 Ondansetron Odt 4 Mg Tab.Rapdis TRANSLINGU 11/17/22 22:57 4 mg ONCE ONE Administration Sucralfate 1 gm 11/17/22 23:47 11/17/22 23:53 Sucralfate Oral Suspension 1 Gm/10 Ml Oral.Susp PO 11/17/22 23:48 1 gm ONCE ONE Administration Medical Decision Making Medical Decision Making [facility] Narrative: 22-year-old female with nausea and vomiting without diarrhea. On review of all investigations my interpretation is that patient is , will obtain quantitative hCG, still will treat for gastritis symptoms as well as nausea and vomiting but patient denies any lower abdominal or pelvic pain and denies any vaginal bleeding. My interpretation is patient is is experiencing -induced nausea and vomiting Differential Diagnosis Differential Diagnoses: The differential diagnosis associated with the pre sentation includes Please to this cuss price above Lab Data [facility] Lab Attestation statement: I reviewed the patient's lab results. Please see the discussion above 11/17/22 23:23 11/17/22 23:23 Labs: Lab Results 11/17/22 11/17/22 11/17/22 Range/Units 23:23 23:23 23:35 WBC 10.4 (4.8-10.8) X10*3/uL RBC 3.83 L (4.20-5.50) X10*6/uL Hgb 12.2 (12.0-16.0) g/dl Hct 35.5 L (37.0-47.0) % MCV 92.7 (80.0-98.0) fL MCH 31.9 (27.0-33.0) pg MCHC 34.4 (31.0-35.0) g/dl RDW 13.2 (11.0-16.0) % Plt Count 287 (160-400) X10*3/uL MPV 10.4 (9.4-12.3) fL Immature Gran % (Auto) 0.3 (0.0-0.4) % Neut % (Auto) 59.5 (45-73) % Lymph % (Auto) 32.5 (20-40) % [place] % (Auto) 6.5 (2-11) % Eos % (Auto) 0.9 (0-4) % Baso % (Auto) 0.3 (0-2) % Lymph # (Auto) 3.4 (1.2-4.9) X10*3/uL [place] # (Auto) 0.7 (0.1-1.2) X10*3/uL Eos # (Auto) 0.1 (0.0-0.4) X10*3/uL Baso # (Auto) 0.0 (0.0-0.2) X10*3/uL Abs Immat Gran (auto) 0.03 (0.00-0.03) X10*3/uL Absolute Neuts (auto) 6.2 (2.0-8.3) x10*3/uL Absolute Nucleated RBC 0.000 (0.0-0.012) X10*3/uL Nucleated RBC % (auto) 0.0 (0.0-0.2) /100WBC Sodium 137 (135-145) mmol/L Potassium 4.0 (3.3-5.1) mmol/L Chloride 107 (96-108) mmol/L Carbon Dioxide 20 L (22-29) mmol/L Anion Gap 14 (12-20) BUN 7 L (9-16) mg/dL Creatinine 0.73 (0.5-1.4) mg/dL Estim Creat Clear Calc 110.2 Estimated GFR > 60 Random Glucose 100 (60-115) mg/dL Calcium 9.2 D (8.4-10.2) mg/dL Total Bilirubin 0.7 (0.0-1.0) mg/dL AST 17 (5-31) U/L ALT 19 (0-31) U/L Alkaline Phosphatase 47 (39-117) U/L Total Protein 6.8 (6.5-8.0) g/dL Albumin 4.0 (3.5-5.0) g/dL Lipase 10 (8-78) U/L Beta HCG, Quant 36050 mIU/mL Urine Color Yellow Urine Appearance Clear Urine pH 6.0 (5.0-9.0) Ur Specific [place] 1.025 (1.005-1.025) Urine Protein Negative (Neg-Trace) mg/dL Urine Glucose (UA) Negative (Negative) mg/dL Urine Ketones Negative (Negative) mg/dL Urine Blood Negative (Negative) Urine Nitrite Negative (Negative) Ur Leukocyte Esterase Negative (Negative) Urine Test (NEGATIVE) 11/17/22 Range/Units 23:35 WBC (4.8-10.8) X10*3/uL RBC (4.20-5.50) X10*6/uL Hgb (12.0-16.0) g/dl Hct (37.0-47.0) % MCV (80.0-98.0) fL MCH (27.0-33.0) pg MCHC (31.0-35.0) g/dl RDW (11.0-16.0) % Plt Count (160-400) X10*3/uL MPV (9.4-12.3) fL Immature Gran % (Auto) (0.0-0.4) % Neut % (Auto) (45-73) % Lymph % (Auto) (20-40) % [place] % (Auto) (2-11) % Eos % (Auto) (0-4) % Baso % (Auto) (0-2) % Lymph # (Auto) (1.2-4.9) X10*3/uL [place] # (Auto) (0.1-1.2) X10*3/uL Eos # (Auto) (0.0-0.4) X10*3/uL Baso # (Auto) (0.0-0.2) X10*3/uL Abs Immat Gran (auto) (0.00-0.03) X10*3/uL Absolute Neuts (auto) (2.0-8.3) x10*3/uL Absolute Nucleated RBC (0.0-0.012) X10*3/uL Nucleated RBC % (auto) (0.0-0.2) /100WBC Sodium (135-145) mmol/L Potassium (3.3-5.1) mmol/L Chloride (96-108) mmol/L Carbon Dioxide (22-29) mmol/L Anion Gap (12-20) BUN (9-16) mg/dL Creatinine (0.5-1.4) mg/dL Estim Creat Clear Calc Estimated GFR Random Glucose (60-115) mg/dL Calcium (8.4-10.2) mg/dL Total Bilirubin (0.0-1.0) mg/dL AST (5-31) U/L ALT (0-31) U/L Alkaline Phosphatase (39-117) U/L Total Protein (6.5-8.0) g/dL Albumin (3.5-5.0) g/dL Lipase (8-78) U/L Beta HCG, Quant mIU/mL Urine Color Urine Appearance Urine pH (5.0-9.0) Ur Specific [place] (1.005-1.025) Urine Protein (Neg-Trace) mg/dL Urine Glucose (UA) (Negative) mg/dL Urine Ketones (Negative) mg/dL Urine Blood (Negative) Urine Nitrite (Negative) Ur Leukocyte Esterase (Negative) Urine Test POSITIVE H (NEGATIVE) External Record Review External record reviewed: Outpatient record and Prior outpatient labs Discharge Plan Discharge Clinical Impression: Nausea and vomiting during Patient Disposition: Home, Self-Care Instructions: Nausea and Vomiting in (ED), (ED) Additional Instructions: 1. Should start drinking more water, taking vitamins, and call your OB doctor on Sunday. 2. I have sent the antinausea medication for you to use during to your pharmacy. You have to consistently take this medication. 3. I also recommend that you follow-up with your primary care provider by calling the office on Sunday. Return to the ER for any worsening symptoms. Prescriptions: New pyridoxine (vitamin B6) 25 mg tablet 25 mg PO TID 30 Days Qty: 90 0RF No Action ondansetron HCl [Zofran] 4 mg tablet 4 mg PO Q6H PRN (Reason: nausea and vomiting) Qty: 7 0RF omeprazole 40 mg capsule,delayed release(DR/EC) 40 mg PO DAILY Qty: 14 0RF ondansetron 4 mg tablet,disintegrating 4 mg PO Q6H PRN (Reason: nausea and vomiting) Qty: 7 0RF ondansetron HCl 4 mg tablet 4 mg PO Q8H PRN (Reason: nausea and vomiting) 4 Days Qty: 12 0RF metronidazole 500 mg tablet 500 mg PO BID 7 Days Qty: 14 0RF acetaminophen [Tylenol Extra Strength] 500 mg tablet 500 mg PO Q6H PRN (Reason: fever or pain) Qty: 14 0RF naproxen 500 mg tablet 500 mg PO BID PRN (Reason: pain) 10 Days Qty: 20 0RF cyclobenzaprine 5 mg tablet 5 mg PO Q8H PRN (Reason: pain (scale score 7-10)) 5 Days Qty: 14 0RF lidocaine [Lidoderm] 5 % adhesive patch,medicated 1 patch topical DAILY MDD remove after 12 hours PRN (Reason: pain) Qty: 30 0RF Rx Instructions: leave on most painful area for up to 12 hrs acetaminophen [Tylenol Extra Strength] 500 mg tablet 500 mg PO Q6H PRN (Reason: pain or fever) Qty: 20 0RF lidocaine [Lidoderm] 5 % adhesive patch,medicated 1 patch topical DAILY MDD remove after 12 hours PRN (Reason: pain) Qty: 30 0RF Rx Instructions: leave on most painful area for up to 12 hrs naproxen 500 mg tablet 500 mg PO BID PRN (Reason: pain) 10 Days Qty: 20 0RF ibuprofen 800 mg tablet 800 mg PO Q8H PRN (Reason: pain) Qty: 14 0RF acetaminophen [Tylenol Extra Strength] 500 mg tablet 1,000 mg PO QID PRN (Reason: fever or pain) Qty: 14 0RF Referrals: Ca Yousif MD [Primary Care Provider] - (Patient is )
[2022-11-17 23:47] LABS: Alanine Aminotransferase 19 U/L (0-31); Alkaline Phosphatase 47 U/L (39-117); Anion Gap 14 (12-20); Aspartate Amino Transferase 17 U/L (5-31); Bilirubin Total 0.7 mg/dL (0.0-1.0); Blood Urea Nitrogen 7 mg/dL (9-16); Calcium 9.2 mg/dL (8.4-10.2); Carbon Dioxide 20 mmol/L (22-29); Chloride 107 mmol/L (96-108); Creatinine Clr Calc Pharmacy 110.2; Estimated Glomerular Filt Rate > 60; Glucose Random 100 mg/dL (60-115); Lipase 10 U/L (8-78); Sodium 137 mmol/L (135-145); Total Protein 6.8 g/dL (6.5-8.0)
[2022-11-17] MEDS: Magnesium Hydrox/Alum Hydrox 30 ML ORAL.SUSP PO (23:53)
[2022-11-17] MEDS: Lidocaine HCl Viscous 2 % 15 ML SOLUTION 10 ML MUCOUS MEM (23:53)
[2022-11-17] MEDS: Sucralfate Oral Suspension 1 GM/10 ML ORAL.SUSP PO (23:53)
== END 2022-11-18 01:34 | disposition home or self-care (01) ==
PROVIDERS: Emergency Provider Student in an Organized Health Care Education/Training Program; PCP Pediatrics
DX: O26.90 Pregnancy related conditions, unspecified, unspecified trimester (principal); Z3A.01 Less than 8 weeks gestation of pregnancy; Z79.899 Other long term (current) drug therapy
CPT/HCPCS: 36415; 80053; 81003; 81025; 83690; 84702; 85025; 99283

== ENCOUNTER 2023-01-01 22:00 | Emergency (ER) | payer OTHER, SELFPAY ==
[2023-01-01 22:17] VITALS: BP 119/69; PULSE 109; RESP 16; TEMP 36.6; O2SAT 116; BMI 28.0
[2023-01-01 22:35] LABS: Basophils Percent Auto 0.2 % (0-2); Eosinophils Absolute Auto 0.1 X10*3/uL (0.0-0.4); Eosinophils Percent Auto 0.8 % (0-4); Hematocrit 36.5 % (37.0-47.0); Hemoglobin 12.8 g/dl (12.0-16.0); Imm Gran Abs Auto 0.02 X10*3/uL (0.00-0.03); Imm Gran Pct Auto 0.2 % (0.0-0.4); Lymphocytes Absolute Auto 0.8 X10*3/uL (1.2-4.9); Lymphocytes Percent Auto 9.2 % (20-40); MANUAL DIFF FLAG NO; Mean Corpuscular HGB Conc 35.1 g/dl (31.0-35.0); Mean Corpuscular Hemoglobin 32.2 pg (27.0-33.0); Mean Corpuscular Volume 91.7 fL (80.0-98.0); Mean Platelet Volume 10.1 fL (9.4-12.3); Monocytes Absolute Auto 0.6 X10*3/uL (0.1-1.2); Monocytes Percent Auto 6.9 % (2-11); Neutrophils Absolute Auto 7.5 x10*3/uL (2.0-8.3); Neutrophils Percent Auto 82.7 % (45-73); Platelet Count 252 X10*3/uL (160-400); Red Blood Count 3.98 X10*6/uL (4.20-5.50); White Blood Count 9.1 X10*3/uL (4.8-10.8)
[2023-01-01 22:57] LABS: Alanine Aminotransferase 14 U/L (0-31); Alkaline Phosphatase 43 U/L (39-117); Anion Gap 14 (12-20); Aspartate Amino Transferase 17 U/L (5-31); Bilirubin Total 0.8 mg/dL (0.0-1.0); Blood Urea Nitrogen 4 mg/dL (9-16); Calcium 9.2 mg/dL (8.4-10.2); Carbon Dioxide 20 mmol/L (22-29); Chloride 105 mmol/L (96-108); Estimated Glomerular Filt Rate > 60; Glucose Random 96 mg/dL (60-115); Potassium 3.7 mmol/L (3.3-5.1); Sodium 135 mmol/L (135-145); Total Protein 6.9 g/dL (6.5-8.0)
[2023-01-01 23:57] VITALS: BP 107/57; PULSE 92; RESP 16; TEMP 36.8; O2SAT 98
--- NOTE | 2023-01-01 23:58 | MHC.EDTECH ---
this pct assumed care of pt at 2345 ,vitals sign taken ,covid and flu swab collected and sent to lab .
--- OUTSIDE RECORDS SUMMARY | 2023-01-02 00:02 | XMS_ITS | Continuity of Care Document ---
:2000 Author Organization [facility] Address [address] [place] [address]- Care Team Providers Name Role Phone Ca Yousif MD Primary Care Physician [place] [facility] [place]): [place]22 - 11/25/[address] [address]- Discharge Disposition: A-D/C Home Attending Physician: Valentín COOPER, December Admitting Physician: Valentín COOPER December Referring Physician: Valentín COOPER December Allergies, Adverse Reactions, Alerts No Known Allergies Problem List Condition Confirmation Course Effective Dates Status Health Stat us Informant Asthma Confirmed Active Results Radiology Reports Exam Date Time Procedure Performing Provider Status 11/25/22 12:09 AM US Uterus Transvaginal Joce , Tawnya; Auth (Verified) Notes:(US Uterus Transvaginal) Reason For Exam: bleeding in early ;BleedingRESULT: US Uterus Transvaginal US Uterus Transvaginal REASON: Bleeding; bleeding in early ; Clinical Question(s): Demise COMPARISON: None TECHNIQUE: Transvaginal pelvic ultrasound with grayscale and color Doppler analysis. FINDINGS: Last menstrual period (LMP): 09/21/2022. Gestational age (GA) by LMP: 9 weeks 2 days. UTERUS AND GESTATIONAL STRUCTURES: Normal gestational sac containing a yolk sac is identified within the endometrial cavity. Single intrauterine with heart rate 157 BPM. [place]-rump length (CRL): 1.3 cm. Ultrasound age of 7w4d. Uterus: 9.9 x 5.3 x 7.1 cm, volume 194.5 cc. No masses. No abnormalities of the cervix. RIGHT OVARY: Size: 3.9 x 2.5 x 2.5 cm, volume 12.5 cc. Morphology: Normal echotexture. No pathologic cysts or mass. Right-sided corpus luteum. Normal colorDoppler appearance. LEFT OVARY: Size: 3.3 x 1.9 x 2.1 cm, volume 6.9 cc. Morphology: Normal echotexture. No pathologic cysts or mass. Normal color Doppler appearance. FREE FLUID: Trace volume free fluid. IMPRESSION: Single live intrauterine . Estimated gestational age 7w2d. Right-sided corpus luteum. Trace free fluid. I have personally reviewed the images and I agree with this report. WSN: [id number] Ordering Physician: Lashaun Ocampo Dictated By: Tristan Rey DO Dictated Date/Time: 11/25/22 6:57 am Reviewed By: Junaid Lemus MD Signed By: Junaid Lemus MD Signed Date/Time: 11/25/22 7:02 am Transcribed By: BRIGIDO Transcribed Date/Time: 11/25/22 2:03 am Note Sharri Hall RN: PERFORM Event Display: Discharge/Transfer Note Hospital Authored Date: [id number] Nursing Discharge Note Entered On: 11/25/2022 2:11 EST Performed On: 11/25/2022 2:05 EST by Sharri Hall RN Nursing Discharge Note 2 Discharge Time : 11/25/2022 2:05 EST Discharge Level of Care at Discharge : Home/Longterm/Foster Care Patient Left Unit Via : Ambulatory Patient Accompanied Off Unit with : Significant other DC Instructions Provided & Signed by Pt : Yes Patient Understands D/C Instructions : Yes Patient Instructions Discharge Signed : Yes Did Pt have Specialty Bed or Wound Vac : No Sharri Hall RN - 11/25/2022 2:10 Sharri Molina RN: PERFORM Event Display: Patient Education/Instruction Authored Date: [id number] Inpatient Adult Discharge Instructions [address] [address] Name: LAMBERTO MCLEAN : 2000 Visit: 11/24/2022 20:58:00 Current Date: 11/25/2022 01:54 Account: [id number] Inpatient Adult Discharge Instructions We would like to thank you for allowing us to assist you with your healthcare needs. The following includes patient education materials and information regarding your injury/illness. Our entire staff strives to provide an excellent experience for our patients and their families. PLEASE ENSURE YOU FOLLOW-UP PER THE INSTRUCTIONS BELOW! ?? YOUR OPINION IS IMPORTANT TO US! Please complete the survey you may receive by mail or email. Your feedback will be used to make improvements to the healthcare experiences of our patients and their families. Surveys are administered by [employer] ?? If further treatment with your primary care physician or another doctor is recommended, it is important for you to keep the appointment. Call your primary care physician or return to the Emergency Department immediately if your condition worsens, fails to improve, or new symptoms develop. If you need to find a doctor, you can call [facility] [employer] for a referral at [phone] or toll free at [phone] ([phone]) or log in to [email or web address].. ?? You can view and manage your care through the patient portal or by using a health care enedina of your choosing. [employer] is a website that allows you to securely view your medical information including your hospital discharge summary, office visit summaries, medications and follow-up visits. You can also request appointments, renew medications, and request access to your medical information using a health care enedina of your choosing, or just ask a question. You can enroll at [email or web address] or register during your next office visit. You have been discharged from [facility], Patient Care Unit: WETU1. If you have any questions regarding these instructions after you leave, please call us and we will be happy to assist you. [facility] Your Care Team Attending Physician Valentín COOPER, December Your Diagnosis 9 weeks gestation of Bleeding in early Tests Performed Below is a partial list of the tests performed during your hospitalization. You may have had other tests and procedures not included in this list. Please discuss all test results with your provider. CBC Complete Urinalysis Type and Screen Primary Care Provider Benja COOPER, Ca Amado Advance Directive Health Care Proxy on File No Patient has a Designated Caregiver: No Studies Pending All tests and labs ordered during this hospital stay have been completed unless listed below. Pleasediscuss all pending results with your provider listed above in these instructions. ?? US Uterus Transvaginal What to do next Instructions From Your Doctor Discharge Orders You Need to Schedule the Following Appointments Follow Up with??[facility] [phone] When?? Discharge Medications LAMBERTO MCLEAN :2000 Visit Date:11/24/2022 Medications: Please continue your medications until treatment is completed or stopped by your provider. Medications not listed below should be discontinued. Discuss any questions related to medications with your provider. Test Results Below is a partial list of the most recent Laboratory test results done prior to this discharge. You may have had other tests and procedures not included in this list. Please discuss all test results with your provider. CBC (11/24/2022) ???WBC - 10.5 k/mm3???RBC - 3.91 m/mm3???Hgb - 12.3 Gm/dL???Hct - 36.6 %???MCV - 93.6 femtoliters???MCH - 31.5 pg???MCHC - 33.6 g/dL???Platelet Count - 284 k/mm3???RDW-SD - 45.5 femtoliters???MPV - 10.8 femtoliters???Nucleated RBC (Automated) - 0.0 #/100 WBC'S???Abs. NRBC - 0.0 k/mm3 Complete Urinalysis (11/24/2022) ???Appear/Color, Urine - LIGHT YELLOW???Specific [place], Urine - 1.020???pH, Urine - 6.0???Albumin,Urine - TRACE???Glucose, Urine - NEGATIVE???Ketones, Urine - TRACE???Bilirubin, Urine - NEGATIVE???Hemoglobin, Urine - 2+???Nitrite, Urine - NEGATIVE???Leukocyte, Urine - NEGATIVE???Urobilinogen - NORMAL???WBC's, Urine - 1 /HPF???RBC's, Urine - 2 /HPF???Bacteria - SLIGHT???Squamous Epith - 2 /HPF???Amorphous Crystals - SLIGHT???Mucus - SLIGHT Type and Screen (11/24/2022) ???Blood Type - O Positive???Antibody Screen - Negative Allergies (NKA means No Known Allergies) NKA Problems Active Problems??(2) Asthma? Education Materials Below is the list of Educational Leaflet Providered with your Discharge Instructions. Possible Miscarriage (Threatened )?? Bleeding During Early ?? Adapting to : First Trimester?? Valuables and Belongings I fully understand and agree that [facility] accepts no responsibility for all my personal property including clothing, toilet articles, radios, jewelry, dentures, hearing aids, rings, money, or any other property that is in my possession or is brought to me after admission. I understand certain valuables may be placed in a hospital safe for a short period of time. I understand that the hospital is not liable for loss or damage due to accident, fire, or other natural occurrence while said property is in the safe. I accept full responsibility for any personal property that I keep with me, and will not hold the hospital responsible in case of loss or disappearance. I acknowledge that i have been encouraged to send valuables and belongings home. ? Common Emergency Awareness Tips IS IT A STROKE? Act FAST and Check for these signs: FACE Does the face look uneven? ARM Does one arm drift down? SPEECH Does their speech sound strange? TIME Call at any sign of stroke ?? Heart Attack Signs Chest discomfort: Most heart attacks involve discomfort in the center of the chest and lasts more than a few minutes, or goes away and comes back. It can feel like uncomfortable pressure, squeezing, fullness or pain. Discomfort in upper body: Symptoms can include pain or discomfort in one or both arms, back, neck, jaw or stomach. Shortness of breath: With or without discomfort. Other signs: Breaking out in a cold sweat, nausea, or lightheaded. Remember, MINUTES DO MATTER. If you experience any of these heart attack warning signs, call to get immediate medical attention! ?? Smoking can increase your chances of developing chronic health problems and can cause harmful effects to other family members in your house. If you smoke, you are strongly encouraged to quit. Please call [facility] [employer] at [phone] or [phone] [employer] ([phone]) or log in to [email or web address] for referrals to smoking cessation programs. ?? The National Suicide Prevention Hotline is available 24/7 if you or someone you know needs to find areason to keep living. By calling 8-961-810-fcta (1358) you'll be connected to a skilled, trained counselor at a crisis center in your area. INPATIENT DISCHARGE INSTRUCTIONS SIGNATURE PAGE LAMBERTO MCLEAN Location:[facility] Registration Date and Time:11/24/2022 20:58 EST Primary Care Physician: Benja COOPER, Ca Amado, I LAMBERTO MCLEAN, have received the above patient education materials/instructions and have verbalized understanding. If ambulance or transport services are being used I further acknowledge being given a choice of service. ?? If you need to contact me, please call me at this number: . Patient/Surgical Scheduler Name: Patient/Surgical Scheduler Signature: Relationship to Patient: Witness Name/Signature: Date: Sharri Hall RN: PERFORM Event Display: Patient Education Leaflets Authored Date: [id number] Possible Miscarriage (Threatened ) ?? [id number] Possible Miscarriage (Threatened ) You may be having a miscarriage. Common signs of a miscarriage are pain and bleeding.??A small amount of bleeding can be normal during the first 3 months of . Often the pain and bleeding stop, and you have a normal pregnancyand baby.??But heavy bleeding or severe cramping can be an early sign of miscarriage. A miscarriage m eans??an??unexpected loss of your . At this time, your healthcare provider doesn???t know whether you will have a miscarriage, or if things will clear up and your will continue normally. This can be emotionally difficult. There is little that can be done to change the way you feel. But??understand that miscarriages are common. About 1 or 2 out of every [address] Some even end before you know you are . This happens for a number of reasons, and usually the cause is never known. It???s important you know that it is not your fault. It didn???t happen because you did anything wrong. Having sex or exercising does not cause a miscarriage. These activities are usually safe unless youhave pain or bleeding, or your healthcare provider tells you to stop. Even minor falls won???t causea miscarriage. Miscarriages happen because things were not developing as they were supposed to. No medicine can prevent a miscarriage. Again, understand that things are uncertain right now. You may still have some bleeding. This may be light spotting or like a period, and you may pass some tissue. You may have some cramping. This is why follow-up care is important. Home care To improve the chance of keeping??your , you should take these steps: ??? Rest in bed until the pain and bleeding stop. ??? Don???t have sex until your healthcare provider says it???s OK. ???Use sanitary napkins instead of tampons. ??? Don???t douche. ??? Don???t take aspirin, ibuprofen, ornaproxen. ??? Don???t have alcoholic or caffeinated beverages or smoke. ?? Follow-up care Make an appointment with your healthcare provider within the next week, or as directed. If you had an ultrasound,??a radiologist??will??review??it.??You will be told of any new findings that may affect your care. ?? Call 911 Call 911 if you have: ??? Severe pain and very heavy bleeding ??? Severe lightheadedness, passing out, or fainting ??? Rapid heart rate ??? Trouble breathing ??? Confusion or trouble waking up ?? When to seek medical advice Call your healthcare provider right away??if any of the following occur: ??? Vaginal bleeding or pain that lasts for more than 3 days ??? Heavy bleeding. This means soaking 1 new pad an hour over 3 hours. ??? Fever of 100.4??F (38??C) or higher, or as directed by your healthcare provider ??? Pain in your lower belly (abdomen) that gets worse ??? Weakness or dizziness ??? Passage of anything that resembles tissue. This would be pink or grayish membrane or solid material. Save the tissue in a clean container and bring it to your healthcare provider. ?? Last Reviewed Date: 2022 ?? 9405-1088 [employer]. All rights reserved. This information is not intended as a substitute for professional medical care. Always follow your healthcare professional's instructions. ??Isabel BERNSTEIN, Sharri Vargas: PERFORM Event Display: Patient Education Leaflets Authored Date: [id number] Bleeding During Early ?? 37380 Bleeding During Early If you???ve had bleeding early in your , you???re not alone. Many other women have early bleeding, too. And in most cases, nothing is wrong. But your healthcare provider still needs to know about it. They may want to do tests to find out why you???re bleeding. Call your provider if you see bleeding during . Tell your provider if your blood is Rh negative. Then they can figure out if you need anti-D immune globulin treatment. What causes early bleeding? The cause of bleeding early in is often unknown. But many factors early on in may lead to light bleeding (called spotting) or heavier bleeding. These include: ??? Having sex ??? When the embryo implants on the uterine wall ??? Bleeding between the sac membrane and the uterus (subchorionic bleeding) ??? loss (miscarriage) ??? The embryo implants outside of the uterus (ectopic ) ?? If you see spotting Light bleeding is the most common type of bleeding in early . If you see it, call your healthcare provider. Chances are, they will tell you that you can care for yourself at home. ?? If tests are needed Depending on how much you bleed, your healthcare provider may ask you to come in for some tests. A pelvic exam, for instance, can help see how far along your is. You also may have an ultrasound or a Doppler test. These imaging tests use sound waves to check the health of your baby. The ultrasound may be done on your belly or inside your vagina. You may also need a special blood test. This test compares your hormone levels in blood samples taken 2 days apart. The results can help your provider learn more about the implantation of the embryo. Your blood type will also need to be checked toassess if you will need to be treated for Rh sensitization.?? Ultrasound can help check the health of your fetus. ?? Warning signs If your bleeding doesn???t stop or if you have any of the following, get medical care right away: ??? Soaking a sanitary pad each hour ??? Bleeding like you???re having a period ??? Cramping or severebelly pain ??? Feeling dizzy or faint ??? Tissue passing through your vagina ??? Bleeding at any time after the first trimester ?? Questions you may be asked Bleeding early in isn't normal. But it is common. If you???ve seen any bleeding, you may be concerned. But keep in mind that bleeding alone doesn???t mean something is wrong. Just be sure tocall your healthcare provider right away. They may ask you questions like these to help find the cause of your bleeding: ??? When did your bleeding start? Is your bleeding very light or is it like a period? Is the blood bright red or brownish? Have you had sex recently? Have you had pain or cramping? Have you felt dizzy or faint? ?? Monitoring your Bleeding will often stop as quickly as it began. Your may go on a normal path again. You may need to make a few extra visits. But you and your baby will most likely be fine. ?? Last Reviewed Date: 2021 ?? [employer]. All rights reserved. This information is not intended as a substitute for professional medical care. Always follow your healthcare professional's instructions. ??Isabel BERNSTEIN, Sharri Vargas: PERFORM Event Display: Patient Education Leaflets Authored Date: [id number] Adapting to : First Trimester ?? 93699 Adapting to : First Trimester As your body adjusts during your first trimester of , you may have to change or limit yourdaily activities. You???ll need more rest. You may also need to use the energy you have more wisely. Your changing body Almost every part of your body is affected as you adapt to . The uterus and cervix will start to soften right away. You may not look very during the first 3 months. But you are likely to have some common signs of early : ??? Nausea ??? Fatigue ??? Frequent urination ??? Mood swings ??? Bloating of the belly ??? Constipation ??? Heartburn ??? Missed or light periods (first trimester bleeding) ??? Nipple or breast tenderness and breast swelling ?? It???s not too late to start good habits What matters most is protecting your baby from this moment on. If you smoke, drink alcohol, or use drugs, now is the time to stop. If you need help, talk with your healthcare provider: ??? Smoking increases the risk of stillbirth??or having a cul-dxipz-xomlnp baby. If you smoke, quit now. ??? Alcoholand drugs have been linked with miscarriage, defects, intellectual disability, and low weight. Don't drink alcohol or take drugs. ?? Tips to relieve nausea During , nausea can happen at any time of the day, but it may be worse in the morning. To help prevent nausea: ??? Eat small, light meals at frequent intervals. ??? Drink fluids often. ??? Get up slowly. Eat a few unsalted crackers before you get out of bed. ??? Avoid smells that bother you.??? Avoid spicy and fatty foods. ??? Eat an ice pop??in your favorite flavor. ??? Get plenty of rest. ??? Ask your healthcare provider about taking hu or vitamin B6 for nausea and vomiting. ??? Talk with your healthcare provider if you take vitamins that upset your stomach. ?? Work concerns The end of the first trimester is a good time to discuss working during with your employer. Follow your healthcare provider???s advice if your job needs you to stand for a long time, work with hazardous tools, or even sit at a desk all day. Your workspace, workload, or scheduled hours may need to be adjusted. Perhaps you can change body postures more often or take an extra break. ?? Advice for travel Talk to your healthcare provider first, but the second trimester may be the best time for any travel. You may be advised to avoid certain trips while you???re . Food and water can be concerns in developing countries. Travel by car is a good choice, as you can stop, get out, and stretch. Bring snacks and water along. Fasten the lap belt below your belly, low over your hips. Also be sure to wear the shoulder harness. ?? Intimacy Unless your healthcare provider tells you to, there's no reason to stop having sex while you???re . You or your partner may notice changes in desire. Desire may be less in the first trimester due to nausea and fatigue. In the second trimester, sex may be very enjoyable. The third trimester can be a challenge comfort-hinton. Try different positions and see what???s best for you both. ?? How daily issues affect your health Many things in your daily life impact your health. This can include transportation, money problems,housing, access to food, and child care center assistant director. If you can???t get to medical appointments, you may not receive the care you need. When money is tight, it may be difficult to pay for medicines. And living farfrom a grocery store can make it hard to buy healthy food. If you have concerns in any of these or other areas, talk with your healthcare team. They may know of local resources to assist you. Or they may have a staff person who can help. ?? Last Reviewed Date: 2022 ?? [id number] [employer]. All rights reserved. This information is not intended as a substitute for professional medical care. Always follow your healthcare professional's instructions. ?? US transvaginal for BHSPowerscribe , CIS S: TRANSCRIBE Tristan Rey DO: SIGN Junaid Lemus MD: VERIFY Event Display: Result: Authored Date: [id number] US Uterus Transvaginal REASON: Bleeding; bleeding in early ; Clinical Question(s): Demise COMPARISON: None TECHNIQUE: Transvaginal pelvic ultrasound with grayscale and color Doppler analysis. FINDINGS: Last menstrual period (LMP): 09/21/2022. Gestational age (GA) by LMP: 9 weeks 2 days. UTERUS AND GESTATIONAL STRUCTURES: Normal gestational sac containing a yolk sac is identified within the endometrial cavity. Single intrauterine with heart rate 157 BPM. [place]-rump length (CRL): 1.3 cm. Ultrasound age of 7w4d. Uterus: 9.9 x 5.3 x 7.1 cm, volume 194.5 cc. No masses. No abnormalities of the cervix. RIGHT OVARY: Size: 3.9 x 2.5 x 2.5 cm, volume 12.5 cc. Morphology: Normal echotexture. No pathologic cysts or mass. Right-sided corpus luteum. Normal colorDoppler appearance. LEFT OVARY: Size: 3.3 x 1.9 x 2.1 cm, volume 6.9 cc. Morphology: Normal echotexture. No pathologic cysts or mass. Normal color Doppler appearance. FREE FLUID: Trace volume free fluid. IMPRESSION: Single live intrauterine . Estimated gestational age 7w2d. Right-sided corpus luteum. Trace free fluid. I have personally reviewed the images and I agree with this report. WSN: [id number] Ordering Physician: Lashaun Ocampo Dictated By: Tristan Rey DO Dictated Date/Time: 11/25/22 6:57 am Reviewed By: Junaid Lemus MD Signed By: Junaid Lemus MD Signed Date/Time: 11/25/22 7:02 am Transcribed By: BRIGIDO Transcribed Date/Time: 11/25/22 2:03 am Patient Care team information Care Team PersonnelName: Ca Yousif MD Position: [facility] General Pediatrics MD Member Role: PCP Address: Address: [address] [place] [address] [place] [address]- Care Team Related PersonsName: SREEDHAR PÉREZ Address: home [address] [place] [address] Name: ALFONSO PÉREZ Address: home [address] [place] [address]
--- OUTSIDE RECORDS SUMMARY | 2023-01-02 00:02 | XMS_ITS | Continuity of Care Document ---
:2000 Author Organization [facility] Address [address] [place] [id number]- Care Team Providers Name Role Phone Ca Yousif MD Primary Care Physician Encounter [facility] [place] Date(s): 11/24/22 - 11/24/[address] [address]- Discharge Disposition: A-D/C Walkout Attending Physician: Not on Staff, Attending MD Admitting Physician: Not on Staff, Admitting MD Referring Physician: Not on Staff, Referring MD Allergies, Adverse Reactions, Alerts No Known Allergies Problem List Condition Confirmation Course Effective Dates Status Health Stat us Informant Asthma Confirmed Active Vital Signs Most recent to oldest [Reference Range]: 1 Oxygen Saturation [94-100 %] 100 % (11/24/22 8:36 PM) Pulse Rate [55-90 bpm] 74 bpm (11/24/22 8:36 PM) Blood Pressure [90-138/55-84 mm Hg] 146/85 mm Hg *H* (11/24/22 8:36 PM) Respiratory Rate [16-30 br/min] 16 br/min (11/24/22 8:36 PM) Temperature [96.8-100.4 DegF] 98.2 DegF (11/24/22 8:36 PM) Mode of Delivery (Oxygen) Ambu (11/24/22 8:36 PM) Temperature Route Oral (11/24/22 8:36 PM) Patient Care team information Care Team PersonnelName: Ca Yousif MD Position: S General Pediatrics MD Member Role: PCP Address: Address: [address] [place] [address] [place] [address]- Care Team Related PersonsName: SREEDHAR PÉREZ Address: home [address] [address] Name: ALFONSO PÉREZ Address: home [address] [place] [address], [place] [address]
[2023-01-02 00:20] LABS: IDNOW Serial# 08D9AD1C; Influenza A Negative (Negative); Influenza B2 Negative (Negative)
--- NOTE | 2023-01-02 00:20 | ED_ITS ---
HPI - Nausea/Vomiting/Diarrhea General Chief complaint: Nausea/Vomiting/Diarrhea Stated complaint: /fever/vomiting Time Seen by Provider: 01/01/23 23:58 Source: patient and family Mode of arrival: EMS Limitations: no limitations History of Present Illness HPI Narrative: 22-year-old female EDC 07/10/2023, 13 weeks who presents emergency department for evaluation of 2 days of subjective fever, chills, body aches, weakness, nausea, vomiting and dysuria. The patient states that she has had mul tiple episodes of nausea and vomiting over the past 2 days and has not been able to eat or drink. She states she is feeling very fatigued and tired. She has had subjective fever and chills with diffuse myalgias with no arthralgias. She has had a sore throat, cough productive of mucus and shortness of breath. The patient has taken Tylenol and Zofran with no relief for symptoms. The patient states that she has gotten OBGYN care at [facility] and she had an ultrasound on 12/20/2022 which was normal. She denies any vaginal bleeding or discharge. She complains of abdominal pain and she points to her epigastric area when asked to localize the pain. She describes this as a burnin g sensation. Related Data Previous Rx's Medication Instructions Recorded omeprazole 40 mg capsule,delayed 40 mg PO DAILY #14 caps 07/23/20 release ondansetron HCl 4 mg tablet 4 mg PO Q6H PRN nausea and 07/23/20 (Zofran) vomiting #7 tabs ondansetron 4 mg disintegrating 4 mg PO Q6H PRN nausea and 11/04/21 tablet vomiting #7 tabs acetaminophen 500 mg tablet 500 mg PO Q6H PRN pain or fever 01/03/22 (Tylenol Extra Strength) #20 tabs lidocaine 5 % topical patch 1 patch topical DAILY PRN pain #30 01/03/22 (Lidoderm) ea naproxen 500 mg tablet 500 mg PO BID PRN pain 10 days #20 01/03/22 tabs ondansetron HCl 4 mg tablet 4 mg PO Q8H PRN nausea and 01/18/22 vomiting 4 days #12 tabs metronidazole 500 mg tablet 500 mg PO BID 7 days #14 tabs 06/22/22 acetaminophen 500 mg tablet 500 mg PO Q6H PRN fever or pain 08/04/22 (Tylenol Extra Strength) #14 tabs cyclobenzaprine 5 mg tablet 5 mg PO Q8H PRN pain (scale score 08/04/22 7-10) 5 days #14 tabs lidocaine 5 % topical patch 1 patch topical DAILY PRN pain #30 08/04/22 (Lidoderm) ea naproxen 500 mg tablet 500 mg PO BID PRN pain 10 days #20 08/04/22 tabs acetaminophen 500 mg tablet 1,000 mg PO QID PRN fever or pain 08/24/22 (Tylenol Extra Strength) #14 tabs ibuprofen 800 mg tablet 800 mg PO Q8H PRN pain #14 tabs 08/24/22 pyridoxine (vitamin B6) 25 mg 25 mg PO TID 30 days #90 tabs 11/18/22 tablet cimetidine 800 mg tablet 800 mg PO BID #60 tabs 01/02/23 metoclopramide HCl 10 mg tablet 10 mg PO Q6H PRN nausea and 01/02/23 (Reglan) vomiting #20 tabs Allergies Allergy/AdvReac Type Severity Reaction Status Date / Time No Known Allergies Allergy Verified 11/17/22 21:02 Review of Systems Review of Systems: Yes all other systems are reviewed and are negative [facility], [facility] Past Medical History [facility] Narrative: Past medical history: Asthma. Patient has received 3 COVID vaccinations. Past surgical history: None. Social history: She denies tobacco, alcohol and drug use. Medical History Asthma Syncope Social History Social History Alcohol intake: never Smoked in Last 30 Days: No Use of substances other than those prescribed or required for medical reasons: No Advance Directives: No Advance Directives Information Provided: Yes Patient : Yes Physical Exam Vital Signs: Vital Signs: Last Vital Signs Temp 98.5 F 01/02/23 02:00 Pulse 80 01/02/23 02:00 Resp 16 01/02/23 02:00 BP 97/54 L 01/02/23 02:00 Pulse Ox 99 01/02/23 02:00 O2 Del Method 01/02/23 02:00 BMI result Body Mass Index 28.0 Const: Other: Awake, alert, female patient, very pleasant cooperative, no distress, answers all questions appropriately HEENT: Head: Yes normal to inspection, Yes normocephalic and Yes atraumatic Ears: external ears normal General nose exam: Normal external nose present Face and sinus: Yes normal facial exam Mouth: Normal oral and palatal mucosa present Throat: Yes posterior oropharynx normal Eyes: General: appearance normal, both eyes and all related structures Neck: Neck: Yes normal visual inspection, Yes no lymphadenopathy, Yes trachea midline and Yes supple Chest: Chest palpation & inspection: normal inspection of the chest and normal palpation of entire chest wall Resp: Effort & Inspection: normal respiratory effort and able to speak in complete sentences Auscultation: clear to auscultation bilaterally Cardio: Rate: regular rate Rhythm: regular rhythm Heart sounds: S1 normal heart sound present, S2 normal heart sound present and no murmurs GI: Inspection: Yes normal to inspection Palpation (GI): Tenderness to palpation present (GI) in the epigastrum (Moderate) and suprapubicly (Mild) Auscultation: normal bowel sounds : General: Yes no CVA tenderness Back/Spine/Pelvis: Back: no CVA tenderness Neuro: Cognition (Neuro): normal cognition Motor exam (neuro): 5/5 motor strength present throughout Extrem: General: Yes normal to inspection Psych: Appearance: grossly normal Speech and movement: Normal speech and movement present Affect: normal affect Attitude: cooperative Medications Administered Discontinued Medications Generic Name Dose Route Start Last Admin Trade Name Freq PRN Reason Stop Dose Admin Acetaminophen 975 mg 01/02/23 00:26 01/02/23 02:16 Acetaminophen 325 Mg Tablet PO 01/02/23 00:27 975 mg ONCE STA Administration Al Hydroxide/Mg Hydroxide 30 ml 01/02/23 00:26 01/02/23 02:16 Magnesium Hydrox/Alum Hydrox 30 Ml Oral.Susp PO 01/02/23 00:27 30 ml ONCE STA Administration Diphenhydramine HCl 50 mg 01/02/23 00:15 01/02/23 00:33 Diphenhydramine Hcl 50 Mg/Ml Vial IVPUSH 01/02/23 00:16 50 mg ONCE STA Administration Lactated Ringer's 1,000 mls @ 999 mls/hr 01/02/23 00:15 01/02/23 02:02 Lr IV 01/02/23 01:15 Infused .Q1H1M MACEY Infusion Lactated Ringer's 1,000 mls @ 999 mls/hr 01/02/23 00:30 01/02/23 02:24 Lr IV 01/02/23 01:30 Infused .Q1H1M MACEY Infusion Metoclopramide HCl 10 mg 01/02/23 00:15 01/02/23 00:33 Metoclopramide Hcl 10 Mg/2 Ml Vial IVPUSH 01/02/23 00:16 10 mg ONCE STA Administration Medical Decision Making Medical Decision Making [facility] Narrative: 22-year-old female , 13 weeks with EDC 07/10/2023 who presents emergency department for evaluation of 2 days of subjective fever, chills, rhinorrhea, sore throat, cough productive use his, shortness of breath, abdominal pain, nausea and vomiting. She has not been able to eat or drink for 2 days. She has been taking Tylenol and Zofran without relief for symptoms. Vital signs revealed tachycardia with a pulse of 109 otherwise unremarkable. Physical examination did reveal epigastric and suprapubic pain. I ordered a CBC, CMP, lipase, quantitative beta-hCG, COVID-19, influenza, urinalysis. Patient was ordered to get lactated Ringer's x2 L, Reglan 10 mg IV and Benadryl 50 mg IV. The patient will also be treated with Tylenol 975 mg orally and Maalox 30 cc orally. 0259: My interpretation patient's laboratory evaluation is as follows: CBC was normal. CMP revealed a low CO2 of 20. COVID-19 and influenza were negative. Rapid strep was negative. Patient's heart tones 170. The patient did improve after the above treatment. Patient's presentation is consistent with acute viral syndrome. The patient will be discharged home with a prescription for Reglan 10 mg every 8 hours as needed for nausea and vomiting and started on cimetidine 800 mg twice a day x1 month. She was given printed and verbal instructions and discharged home. Differential Diagnosis Differential diagnosis includes was not limited to gastritis, nausea and vomiting associated with , viral syndrome, COVID-19, influenza, urinary tract infection, bronchitis, URI, pneumonia, pancreatitis Lab Data [facility] Lab Attestation statement: I reviewed the patient's lab results. Please see [facility] for my discussion 01/01/23 22:30 01/01/23 22:30 Labs: Lab Results 01/01/23 01/01/23 01/01/23 Range/Units 22:30 22:30 23:59 WBC 9.1 (4.8-10.8) X10*3/uL RBC 3.98 L (4.20-5.50) X10*6/uL Hgb 12.8 (12.0-16.0) g/dl Hct 36.5 L (37.0-47.0) % MCV 91.7 (80.0-98.0) fL MCH 32.2 (27.0-33.0) pg MCHC 35.1 H (31.0-35.0) g/dl RDW 13.0 (11.0-16.0) % Plt Count 252 (160-400) X10*3/uL MPV 10.1 (9.4-12.3) fL Immature Gran % (Auto) 0.2 (0.0-0.4) % Neut % (Auto) 82.7 H (45-73) % Lymph % (Auto) 9.2 L (20-40) % [place] % (Auto) 6.9 (2-11) % Eos % (Auto) 0.8 (0-4) % Baso % (Auto) 0.2 (0-2) % Lymph # (Auto) 0.8 L (1.2-4.9) X10*3/uL [place] # (Auto) 0.6 (0.1-1.2) X10*3/uL Eos # (Auto) 0.1 (0.0-0.4) X10*3/uL Baso # (Auto) 0.0 (0.0-0.2) X10*3/uL Abs Immat Gran (auto) 0.02 (0.00-0.03) X10*3/uL Absolute Neuts (auto) 7.5 (2.0-8.3) x10*3/uL Absolute Nucleated RBC 0.000 (0.0-0.012) X10*3/uL Nucleated RBC % (auto) 0.0 (0.0-0.2) /100WBC Sodium 135 (135-145) mmol/L Potassium 3.7 (3.3-5.1) mmol/L Chloride 105 (96-108) mmol/L Carbon Dioxide 20 L (22-29) mmol/L Anion Gap 14 (12-20) BUN 4 L (9-16) mg/dL Creatinine 0.58 (0.5-1.4) mg/dL Estim Creat Clear Calc 140.0 Estimated GFR > 60 Random Glucose 96 (60-115) mg/dL Calcium 9.2 (8.4-10.2) mg/dL Total Bilirubin 0.8 (0.0-1.0) mg/dL AST 17 (5-31) U/L ALT 14 (0-31) U/L Alkaline Phosphatase 43 (39-117) U/L Total Protein 6.9 (6.5-8.0) g/dL Albumin 4.0 (3.5-5.0) g/dL Lipase 23 (8-78) U/L Beta HCG, Quant 098701 mIU/mL COVID-19 (MAGNO) (Negative) COVID-19 Clin Com Influenza Type A (ALLEY) Negative (Negative) Influenza Type B (ALLEY) Negative (Negative) Influenza A & B Note See Note S. pyogenes GrpA ALLEY (Negative) 01/01/23 01/02/23 Range/Units 23:59 00:20 WBC (4.8-10.8) X10*3/uL RBC (4.20-5.50) X10*6/uL Hgb (12.0-16.0) g/dl Hct (37.0-47.0) % MCV (80.0-98.0) fL MCH (27.0-33.0) pg MCHC (31.0-35.0) g/dl RDW (11.0-16.0) % Plt Count (160-400) X10*3/uL MPV (9.4-12.3) fL Immature Gran % (Auto) (0.0-0.4) % Neut % (Auto) (45-73) % Lymph % (Auto) (20-40) % [place] % (Auto) (2-11) % Eos % (Auto) (0-4) % Baso % (Auto) (0-2) % Lymph # (Auto) (1.2-4.9) X10*3/uL [place] # (Auto) (0.1-1.2) X10*3/uL Eos # (Auto) (0.0-0.4) X10*3/uL Baso # (Auto) (0.0-0.2) X10*3/uL Abs Immat Gran (auto) (0.00-0.03) X10*3/uL Absolute Neuts (auto) (2.0-8.3) x10*3/uL Absolute Nucleated RBC (0.0-0.012) X10*3/uL Nucleated RBC % (auto) (0.0-0.2) /100WBC Sodium (135-145) mmol/L Potassium (3.3-5.1) mmol/L Chloride (96-108) mmol/L Carbon Dioxide (22-29) mmol/L Anion Gap (12-20) BUN (9-16) mg/dL Creatinine (0.5-1.4) mg/dL Estim Creat Clear Calc Estimated GFR Random Glucose (60-115) mg/dL Calcium (8.4-10.2) mg/dL Total Bilirubin (0.0-1.0) mg/dL AST (5-31) U/L ALT (0-31) U/L Alkaline Phosphatase (39-117) U/L Total Protein (6.5-8.0) g/dL Albumin (3.5-5.0) g/dL Lipase (8-78) U/L Beta HCG, Quant mIU/mL COVID-19 (MAGNO) Negative (Negative) COVID-19 Clin Com See Note Influenza Type A (ALLEY) (Negative) Influenza Type B (ALLEY) (Negative) Influenza A & B Note S. pyogenes GrpA ALLEY Negative (Negative) Discharge Plan Discharge Clinical Impression: Acute viral syndrome, Acute dehydration, Second trimester Vomiting Qualifiers: Vomiting type: unspecified Nausea presence: with nausea Qualified Code(s): R11.2 - Nausea with vomiting, unspecified Diarrhea Qualifiers: Diarrhea type: unspecified type Qualified Code(s): R19.7 - Diarrhea, unspecified Patient Disposition: Home, Self-Care Instructions: Viral Syndrome (ED) Additional Instructions: Your blood work was unremarkable. Your COVID-19, influenza and strep test were negative Your symptoms are consistent with a viral infection that is causing your nausea, vomiting and diarrhea. Also, your stomach pain is most likely caused by too much acid in your stomach (gastritis). Stop taking Zofran. Take Reglan (metoclopramide) 10 mg pills, 1 pill every 8 hours as needed for nausea and vomiting. When you take Reglan also take Benadryl 25 mg . This helps with the antinausea effect of the Reglan. Take cimetidine 800 mg pills, 1 pill every 12 hours for 1 month. This medication reduces the amount of acid that your stomach produces and helps with heartburn and will help with your abdominal pain. Follow-up with your doctor in 2 days. Please return to the emergency department if your symptoms get worse or if you develop any symptoms that are concerning to you. Prescriptions: New cimetidine 800 mg tablet 800 mg PO BID Qty: 60 0RF Rx Instructions: administer with meals metoclopramide HCl [Reglan] 10 mg tablet 10 mg PO Q6H PRN (Reason: nausea and vomiting) Qty: 20 0RF No Action ondansetron HCl [Zofran] 4 mg tablet 4 mg PO Q6H PRN (Reason: nausea and vomiting) Qty: 7 0RF omeprazole 40 mg capsule,delayed release(DR/EC) 40 mg PO DAILY Qty: 14 0RF ondansetron 4 mg tablet,disintegrating 4 mg PO Q6H PRN (Reason: nausea and vomiting) Qty: 7 0RF ondansetron HCl 4 mg tablet 4 mg PO Q8H PRN (Reason: nausea and vomiting) 4 Days Qty: 12 0RF metronidazole 500 mg tablet 500 mg PO BID 7 Days Qty: 14 0RF acetaminophen [Tylenol Extra Strength] 500 mg tablet 500 mg PO Q6H PRN (Reason: fever or pain) Qty: 14 0RF naproxen 500 mg tablet 500 mg PO BID PRN (Reason: pain) 10 Days Qty: 20 0RF cyclobenzaprine 5 mg tablet 5 mg PO Q8H PRN (Reason: pain (scale score 7-10)) 5 Days Qty: 14 0RF lidocaine [Lidoderm] 5 % adhesive patch,medicated 1 patch topical DAILY MDD remove after 12 hours PRN (Reason: pain) Qty: 30 0RF Rx Instructions: leave on most painful area for up to 12 hrs acetaminophen [Tylenol Extra Strength] 500 mg tablet 500 mg PO Q6H PRN (Reason: pain or fever) Qty: 20 0RF lidocaine [Lidoderm] 5 % adhesive patch,medicated 1 patch topical DAILY MDD remove after 12 hours PRN (Reason: pain) Qty: 30 0RF Rx Instructions: leave on most painful area for up to 12 hrs naproxen 500 mg tablet 500 mg PO BID PRN (Reason: pain) 10 Days Qty: 20 0RF ibuprofen 800 mg tablet 800 mg PO Q8H PRN (Reason: pain) Qty: 14 0RF acetaminophen [Tylenol Extra Strength] 500 mg tablet 1,000 mg PO QID PRN (Reason: fever or pain) Qty: 14 0RF pyridoxine (vitamin B6) 25 mg tablet 25 mg PO TID 30 Days Qty: 90 0RF
[2023-01-02 00:21] LABS: COVID-19 Test Negative (Negative); IDNOW Serial# BCCEAD1C
[2023-01-02] MEDS: diphenhydrAMINE HCL 50 MG/ML VIAL IVPUSH (00:33)
[2023-01-02] MEDS: Metoclopramide HCl 10 MG/2 ML VIAL IVPUSH (00:33)
[2023-01-02 00:36] LABS: IDNOW Serial# 6674DD1D; Strep A Nucleic Acid Negative (Negative)
[2023-01-02] MEDS: Lactated Ringers 1,000 ML 999 ML IV ×2 (00:40→00:43)
[2023-01-02 00:58] LABS: Lipase 23 U/L (8-78)
[2023-01-02 02:00] VITALS: BP 97/54; PULSE 80; RESP 16; TEMP 36.9; O2SAT 99
[2023-01-02] MEDS: Magnesium Hydrox/Alum Hydrox 30 ML ORAL.SUSP PO (02:16)
[2023-01-02] MEDS: Acetaminophen 325 MG TABLET 975 MG PO (02:16)
[2023-01-02 02:56] LABS: Appearance Urine Clear; Color Urine Yellow; Glucose Urine UA Negative (Negative); Leukocyte Esterase Urine Negative (Negative); Nitrite Urine Negative (Negative); Specific Gravity - Urine <= 1.005 (1.005-1.025); Urine Blood Negative (Negative); Urine Ketones 15 mg/dL (Negative); Urine Protein Negative (Neg-Trace)
== END 2023-01-02 03:17 | disposition home or self-care (01) ==
PROVIDERS: Emergency Provider Emergency Medicine Emergency Medical Services; PCP Pediatrics
DX: B34.9 Viral infection, unspecified (principal); E86.0 Dehydration; R19.7 Diarrhea, unspecified; Z20.822 Contact with and (suspected) exposure to COVID-19; Z20.828 Contact with and (suspected) exposure to other viral communicable diseases; Z79.899 Other long term (current) drug therapy
CPT/HCPCS: 36415; 80053; 81003; 83690; 84702; 85025; 87502; 87635; 87651; 96361; 96374; 96375; 99284; 99285; J1200; J2765

== ENCOUNTER 2023-01-28 04:26 | Emergency (ER) | payer OTHER, SELFPAY ==
[2023-01-28 04:41] VITALS: BP 123/63; PULSE 97; RESP 14; TEMP 36.8; O2SAT 99; BMI 28.7
--- NOTE | 2023-01-28 06:35 | ED.EAR ---
HPI - Ear Problem General Chief complaint: Ear Problems Stated complaint: pain behind l ear Time Seen by Provider: 01/28/23 06:25 Source: patient Mode of arrival: ambulatory Limitations: no limitations History of Present Illness HPI Narrative: 22-year-old female , 16 weeks , getting her care at [facility], presents emergency department for evaluation of pain behind her left ear. She states that initially it started with a small pimple and her left scalp behind her left ear, she states that she then noticed increased redness and swelling behind her ear. She states that the swelling has gotten worse. She states that the swelling is very painful to the touch. The patient denied fever, chills, sore throat, rhinorrhea, cough. She has not had any injury. She denies any change in her hearing. She states that she does not have a history of skin infections and has not been treated with antibiotics recently. She denied abdominal pain, vaginal bleeding or vaginal discharge. She denied nausea or vomiting. Related Data Previous Rx's Medication Instructions Recorded omeprazole 40 mg capsule,delayed 40 mg PO DAILY #14 caps 07/23/20 release ondansetron HCl 4 mg tablet 4 mg PO Q6H PRN nausea and 07/23/20 (Zofran) vomiting #7 tabs ondansetron 4 mg disintegrating 4 mg PO Q6H PRN nausea and 11/04/21 tablet vomiting #7 tabs acetaminophen 500 mg tablet 500 mg PO Q6H PRN pain or fever 01/03/22 (Tylenol Extra Strength) #20 tabs lidocaine 5 % topical patch 1 patch topical DAILY PRN pain #30 01/03/22 (Lidoderm) ea naproxen 500 mg tablet 500 mg PO BID PRN pain 10 days #20 01/03/22 tabs ondansetron HCl 4 mg tablet 4 mg PO Q8H PRN nausea and 01/18/22 vomiting 4 days #12 tabs metronidazole 500 mg tablet 500 mg PO BID 7 days #14 tabs 06/22/22 acetaminophen 500 mg tablet 500 mg PO Q6H PRN fever or pain 08/04/22 (Tylenol Extra Strength) #14 tabs cyclobenzaprine 5 mg tablet 5 mg PO Q8H PRN pain (scale score 08/04/22 7-10) 5 days #14 tabs lidocaine 5 % topical patch 1 patch topical DAILY PRN pain #30 10/21/22 (Lidoderm) ea naproxen 500 mg tablet 500 mg PO BID PRN pain 10 days #20 08/04/22 tabs acetaminophen 500 mg tablet 1,000 mg PO QID PRN fever or pain 08/24/22 (Tylenol Extra Strength) #14 tabs ibuprofen 800 mg tablet 800 mg PO Q8H PRN pain #14 tabs 08/24/22 pyridoxine (vitamin B6) 25 mg 25 mg PO TID 30 days #90 tabs 11/18/22 tablet cimetidine 800 mg tablet 800 mg PO BID #60 tabs 01/02/23 metoclopramide HCl 10 mg tablet 10 mg PO Q6H PRN nausea and 01/02/23 (Reglan) vomiting #20 tabs cephalexin 500 mg capsule 500 mg PO TID 7 days #21 caps 01/28/23 Allergies Allergy/AdvReac Type Severity Reaction Status Date / Time No Known Allergies Allergy Verified 11/17/22 21:02 Review of Systems Review of Systems: Yes all other systems are reviewed and are negative [facility] Past Medical History [facility] Narrative: Past medical history: Asthma, 16 weeks . Social history: She denies tobacco alcohol and drug use. Medical History Asthma Syncope Social History Social History Alcohol intake: never Smoked in Last 30 Days: No Use of substances other than those prescribed or required for medical reasons: No Advance Directives: No Advance Directives Information Provided: Yes Physical Exam Vital Signs: Vital Signs: Last Vital Signs Temp 98.2 F 01/28/23 04:41 Pulse 97 01/28/23 04:41 Resp 14 01/28/23 04:41 BP 123/63 01/28/23 04:41 Pulse Ox 99 01/28/23 04:41 O2 Del Method Room Air 01/28/23 04:41 BMI result Body Mass Index 28.7 Vital signs were normal. General: Awake, alert, female patient, pleasant cooperative no distress HEENT: Head is normocephalic atraumatic pupils were equal round reactive light, sclera contact however normal, mouth revealed moist membranes, the patient does have tender, indurated, erythematous area behind her left ear which is tender to palpation, there is a small palpable mass in her left scalp with no overlying erythema. Neck: Supple with no adenopathy Lungs: Clear to auscultation Abdomen: Soft nontender nondistended with normoactive bowel sounds Medications Administered Discontinued Medications Generic Name Dose Route Start Last Admin Trade Name Yuri PRN Reason Stop Dose Admin Acetaminophen 975 mg 01/28/23 06:39 01/28/23 06:54 Acetaminophen 325 Mg Tablet PO 01/28/23 06:40 975 mg ONCE ONE Administration Cephalexin HCl 500 mg 01/28/23 06:39 01/28/23 06:55 Cephalexin 500 Mg Capsule PO 01/28/23 06:40 500 mg ONCE ONE Administration Medical Decision Making Medical Decision Making [facility] Narrative: 22-year-old female who presents emergency department for evaluation of postauricular left ear pain and left scalp lesion x2 days. The patient had increased pain, redness and swelling behind her left ear. Patient's findings are consistent with cellulitis. The patient is but I do not think that the cellulitis is related to her . The patient was started on Keflex 500 mg 3 times a day for 7 days, she was advised to apply heat to the area for 15 minutes 4 to 6 times a day. She was given printed and verbal instructions discharged home. Differential Diagnosis Differential diagnosis includes but is not limited to cellulitis, carbuncle, abscess Discharge Plan Discharge Clinical Impression: Posterior auricular pain of left ear, Cellulitis Patient Disposition: Home, Self-Care Instructions: Cellulitis (ED), Cellulitis (DC) Additional Instructions: Cellulitis Discharge Instructions You have an infection of your skin. This is called cellulitis. This is usually caused by bacteria on your skin that gets under your skin and then causes the infection Take Keflex (cephalexin) 500 mg pills, 1 pill 3 times a day for 1 week. This is an antibiotic that should help your body fight off the infection. Keep the area of cellulitis elevated to help reduce swelling in the infected area and this helps with the healing process Also apply a heating pad on low or a warm compress for 15 minutes, 4-6 times a day. This will increase the blood flow to the area and will bring white blood cells to the area which will help your body fight off the infection. Also take Tylenol( acetaminophen) 325 mg pills, 2 pills every 4 hours as needed for pain. Other signs of worsening infection include redness that is getting worse, fever, chills, weakness, increased pain, increased redness, increased swelling or red streaks going away from the area of infection. If you develop any of these symptoms or any other symptoms that are concerning to you, see your doctor immediately or return to the Emergency Department. Follow up with your doctor in 3 days for a recheck Please read the other printed instructions that we printed for you. Prescriptions: New cephalexin 500 mg capsule 500 mg PO TID 7 Days Qty: 21 0RF No Action ondansetron HCl [Zofran] 4 mg tablet 4 mg PO Q6H PRN (Reason: nausea and vomiting) Qty: 7 0RF omeprazole 40 mg capsule,delayed release(DR/EC) 40 mg PO DAILY Qty: 14 0RF ondansetron 4 mg tablet,disintegrating 4 mg PO Q6H PRN (Reason: nausea and vomiting) Qty: 7 0RF ondansetron HCl 4 mg tablet 4 mg PO Q8H PRN (Reason: nausea and vomiting) 4 Days Qty: 12 0RF metronidazole 500 mg tablet 500 mg PO BID 7 Days Qty: 14 0RF acetaminophen [Tylenol Extra Strength] 500 mg tablet 500 mg PO Q6H PRN (Reason: fever or pain) Qty: 14 0RF naproxen 500 mg tablet 500 mg PO BID PRN (Reason: pain) 10 Days Qty: 20 0RF cyclobenzaprine 5 mg tablet 5 mg PO Q8H PRN (Reason: pain (scale score 7-10)) 5 Days Qty: 14 0RF lidocaine [Lidoderm] 5 % adhesive patch,medicated 1 patch topical DAILY MDD remove after 12 hours PRN (Reason: pain) Qty: 30 0RF Rx Instructions: leave on most painful area for up to 12 hrs acetaminophen [Tylenol Extra Strength] 500 mg tablet 500 mg PO Q6H PRN (Reason: pain or fever) Qty: 20 0RF lidocaine [Lidoderm] 5 % adhesive patch,medicated 1 patch topical DAILY MDD remove after 12 hours PRN (Reason: pain) Qty: 30 0RF Rx Instructions: leave on most painful area for up to 12 hrs naproxen 500 mg tablet 500 mg PO BID PRN (Reason: pain) 10 Days Qty: 20 0RF ibuprofen 800 mg tablet 800 mg PO Q8H PRN (Reason: pain) Qty: 14 0RF acetaminophen [Tylenol Extra Strength] 500 mg tablet 1,000 mg PO QID PRN (Reason: fever or pain) Qty: 14 0RF pyridoxine (vitamin B6) 25 mg tablet 25 mg PO TID 30 Days Qty: 90 0RF cimetidine 800 mg tablet 800 mg PO BID Qty: 60 0RF Rx Instructions: administer with meals metoclopramide HCl [Reglan] 10 mg tablet 10 mg PO Q6H PRN (Reason: nausea and vomiting) Qty: 20 0RF Interventions: ED Discharge Assessment Last Done: 01/28/23 07:32 Discharge Date/Time: 01/28/23 07:34
[2023-01-28] MEDS: Acetaminophen 325 MG TABLET 975 MG PO (06:54)
[2023-01-28] MEDS: cephALEXin 500 MG CAPSULE PO (06:55)
== END 2023-01-28 07:34 | disposition home or self-care (01) ==
PROVIDERS: Emergency Provider Emergency Medicine Emergency Medical Services; PCP Pediatrics
DX: H92.02 Otalgia, left ear (principal); H60.12 Cellulitis of left external ear; Z79.899 Other long term (current) drug therapy
CPT/HCPCS: 99283; 99284

== ENCOUNTER 2023-06-22 03:52 | Emergency (ER) | payer OTHER, SELFPAY ==
[2023-06-22 04:13] VITALS: BMI 33.8
[2023-06-22 04:20] VITALS: BP 128/82; PULSE 92; RESP 18; TEMP 36.5; O2SAT 98
--- OUTSIDE RECORDS SUMMARY | 2023-06-22 04:25 | XMS_ITS | Continuity of Care Document ---
Author Name Unknown Organization [facility] Address [address] [place] [id number] Care Team Providers Care Nutritionist Name Role Phone Ca Yousif MD Primary Care Physician Encounter [facility] Date(s): 12/18/22 - 01/17/23 [facility] [address] [place] [place] [id number] Allergies, Adverse Reactions, Alerts No Known Allergies Problem List Condition Confirmation Course Effective Dates Status Health [facility] Informant Asthma Confirmed Active Patient Care team information Care Team Personnel Name: Ca Yousif MD Position: [facility] General Pediatrics MD Member Role: PCP Address: Address: [address] [place] [address] [facility] [place], [place] [id number] Care Team Related Persons Name: SREEDHAR PÉREZ Address: home [address] [place] [id number] Name: ALFONSO PÉREZ Address: home [address] [place] [id number]
--- NOTE | 2023-06-22 05:10 | PC.NURSE ---
This RN assumed care of patient. Patient able to ambulate, skin pale warm and dry, patient is alert and oriented, swabs were sent
[2023-06-22 05:14] LABS: Influenza A PCR NEGATIVE (Negative); Influenza B PCR NEGATIVE (Negative); Resp Syncy Virus RNA Qual PCR NEGATIVE (Negative); SARS COV2 PCR INHOUSE NEGATIVE (Negative)
--- NOTE | 2023-06-22 05:20 | ED_ITS ---
HPI - General Adult General Chief complaint: General Medical Stated complaint: Vomitting, flu-like symptoms Time Seen by Provider: 06/22/23 05:17 Source: patient Mode of arrival: ambulatory Limitations: no limitations History of Present Illness HPI narrative: Patient 9 months EDC 07/10 comes in for 3 days of nasal congestion mild sore throat body aches nausea and vomiting unable to hold any solid diet for last 24 hours diffuse abdominal discomfort no diarrhea no fever no any family member sick Related Data Previous Rx's Medication Instructions Recorded omeprazole 40 mg capsule,delayed 40 mg PO DAILY #14 caps 07/23/20 release ondansetron HCl 4 mg tablet 4 mg PO Q6H PRN nausea and 07/23/20 (Zofran) vomiting #7 tabs ondansetron 4 mg disintegrating 4 mg PO Q6H PRN nausea and 11/04/21 tablet vomiting #7 tabs acetaminophen 500 mg tablet 500 mg PO Q6H PRN pain or fever 01/03/22 (Tylenol Extra Strength) #20 tabs lidocaine 5 % topical patch 1 patch topical DAILY PRN pain #30 01/03/22 (Lidoderm) ea naproxen 500 mg tablet 500 mg PO BID PRN pain 10 days #20 01/03/22 tabs ondansetron HCl 4 mg tablet 4 mg PO Q8H PRN nausea and 01/18/22 vomiting 4 days #12 tabs metronidazole 500 mg tablet 500 mg PO BID 7 days #14 tabs 06/22/22 acetaminophen 500 mg tablet 500 mg PO Q6H PRN fever or pain 08/04/22 (Tylenol Extra Strength) #14 tabs cyclobenzaprine 5 mg tablet 5 mg PO Q8H PRN pain (scale score 08/04/22 7-10) 5 days #14 tabs lidocaine 5 % topical patch 1 patch topical DAILY PRN pain #30 08/04/22 (Lidoderm) ea naproxen 500 mg tablet 500 mg PO BID PRN pain 10 days #20 08/04/22 tabs acetaminophen 500 mg tablet 1,000 mg (2 x 500 mg) PO QID PRN 08/24/22 (Tylenol Extra Strength) fever or pain #14 tabs ibuprofen 800 mg tablet 800 mg PO Q8H PRN pain #14 tabs 08/24/22 pyridoxine (vitamin B6) 25 mg 25 mg PO TID 30 days #90 tabs 02/04/23 tablet cimetidine 800 mg tablet 800 mg PO BID #60 tabs 01/02/23 metoclopramide HCl 10 mg tablet 10 mg PO Q6H PRN nausea and 01/02/23 (Reglan) vomiting #20 tabs cephalexin 500 mg capsule 500 mg PO TID 7 days #21 caps 01/28/23 cefuroxime axetil 250 mg tablet 250 mg PO BID 7 days #14 tabs 06/22/23 ondansetron 4 mg disintegrating 4 mg PO Q6-8H PRN nausea and 06/22/23 tablet vomiting #10 tabs Allergies Allergy/AdvReac Type Severity Reaction Status Date / Time No Known Allergies Allergy Verified 06/22/23 04:19 Review of Systems 2 Review of Systems: Yes all other systems are reviewed and are negative [facility] Past Medical History Medical History Syncope Asthma Social History Social History Alcohol intake: never Advance Directives: No Advance Directives Information Provided: No Patient : Yes Physical Exam ED Vital Signs: Vital Signs - 24 hr 06/22/23 04:20 Temperature 97.7 F Pulse Rate 92 Respiratory Rate 18 Blood Pressure 128/82 Pulse Oximetry 98 Oxygen Delivery Method Room Air BMI result Body Mass Index 33.8 Appearance: Alert. Oriented X3. No acute distress. Eyes: No pallor or icterus ENT: Pharynx normal. Oral Mucosa moist Neck: Normal inspection. Neck supple. CVS: Normal heart rate and rhythm. Pulses normal. Respiratory: No respiratory distress. Equal air entry bilateral, no wheezing/rales/rhonchi Abdomen: Gravid uterus nontender hearts of 151 Bowel sounds are present, no mass palpable, no CVA tenderness Skin: Skin warm and dry. Normal skin color. Normal skin turgor. Extremities: No lower extremity edema. No calf tenderness Neuro: Oriented X 3. Medications Administered Generic Name Dose Route Start Last Admin Trade Name Freq PRN Reason Stop Dose Admin Ceftriaxone Sodium 1 gm/ 50 mls @ 100 mls/hr 06/22/23 06:48 06/22/23 07:07 Sodium Chloride IV 06/22/23 07:17 100 mls/hr ONCE ONE Administration Discontinued Medications Generic Name Dose Route Start Last Admin Trade Name Steveq PRN Reason Stop Dose Admin Sodium Chloride 1,000 mls @ 999 mls/hr 06/22/23 05:25 06/22/23 05:39 Ns IV 06/22/23 06:25 999 mls/hr .Q1H1M ONE Administration Ondansetron HCl 4 mg 06/22/23 05:35 06/22/23 05:41 Ondansetron Hcl 4 Mg/2 Ml Vial IVPUSH 06/22/23 05:36 4 mg ONCE ONE Administration Medical Decision Making Medical Decision Making [facility] Narrative: Patient received IV fluids IV Zofran workup showed UTI discharge patient home on Ceftin will give a dose of Rocephin because she is and nauseated bedside ultrasound done with good movement and heart activity Differential Diagnosis Differential Diagnoses: The differential diagnosis associated with the presentation includes UTI/ viral syndrome/ Lab Data [facility] Lab Attestation statement: I reviewed the patient's lab results. 06/22/23 05:28 06/22/23 05:28 Labs: Lab Results 06/22/23 06/22/23 06/22/23 Range/Units 04:30 05:28 05:32 WBC 6.6 (4.8-10.8) X10*3/uL RBC 3.62 L (4.20-5.50) X10*6/uL Hgb 11.1 L (12.0-16.0) g/dl Hct 32.6 L (37.0-47.0) % MCV 90.1 (80.0-98.0) fL MCH 30.7 (27.0-33.0) pg MCHC 34.0 (31.0-35.0) g/dl RDW 12.4 (11.0-16.0) % Plt Count 207 (160-400) X10*3/uL MPV 11.7 (9.4-12.3) fL Immature Gran % (Auto) 0.8 H (0.0-0.4) % Neut % (Auto) 70.9 (45-73) % Lymph % (Auto) 16.0 L (20-40) % Stanley % (Auto) 11.2 H (2-11) % Eos % (Auto) 0.8 (0-4) % Baso % (Auto) 0.3 (0-2) % Lymph # (Auto) 1.1 L (1.2-4.9) X10*3/uL Stanley # (Auto) 0.7 (0.1-1.2) X10*3/uL Eos # (Auto) 0.1 (0.0-0.4) X10*3/uL Baso # (Auto) 0.0 (0.0-0.2) X10*3/uL Abs Immat Gran (auto) 0.05 H (0.00-0.03) X10*3/uL Absolute Neuts (auto) 4.7 (2.0-8.3) x10*3/uL Absolute Nucleated RBC 0.000 (0.0-0.012) X10*3/uL Nucleated RBC % (auto) 0.0 (0.0-0.2) /100WBC Sodium 136 (135-145) mmol/L Potassium 3.7 (3.3-5.1) mmol/L Chloride 111 H (96-108) mmol/L Carbon Dioxide 17 L (22-29) mmol/L Anion Gap 12 (12-20) BUN 5 L (9-16) mg/dL Creatinine 0.68 (0.5-1.4) mg/dL Estim Creat Clear Calc 131.4 Estimated GFR > 60 Random Glucose 84 (60-115) mg/dL Calcium 8.9 (8.4-10.2) mg/dL Magnesium 1.7 (1.6-2.6) mg/dL Total Bilirubin 0.5 (0.0-1.0) mg/dL AST 18 (5-31) U/L ALT 9 (0-31) U/L Alkaline Phosphatase 206 H (39-117) U/L Total Protein 6.4 L (6.5-8.0) g/dL Albumin 3.2 L (3.5-5.0) g/dL Lipase 15 (8-78) U/L Urine Color Yellow Urine Appearance Cloudy Urine pH 6.0 (5.0-9.0) Ur Specific [place] 1.025 (1.005-1.025) Urine Protein 30 (1+) H (Neg-Trace) mg/dL Urine Glucose (UA) Negative (Negative) mg/dL Urine Ketones Negative (Negative) mg/dL Urine Blood Negative (Negative) Urine Nitrite Negative (Negative) Ur Leukocyte Esterase Small (1+) H (Negative) Urine RBC 3-5 H (0-2) /HPF Urine WBC 21-50 H (0-5) /HPF Ur Squamous Epith Cells >20 (0-2) /HPF Urine Bacteria 2+ (None Seen) Hyaline Casts 0-2 (0-2) /LPF Influenza Type A (PCR) NEGATIVE (Negative) Influenza Type B (PCR) NEGATIVE (Negative) RSV RNA Qual (PCR) NEGATIVE (Negative) SARS-CoV-2 RNA (RT-PCR) NEGATIVE (Negative) Discharge Plan Discharge Clinical Impression: Acute gastroenteritis, UTI (urinary tract infection) Patient Disposition: Home, Self-Care Instructions: Acute Nausea and Vomiting (ED), Urinary Tract Infection in (ED) Additional Instructions: Drink plenty of fluids Medicine for nausea as prescribed Antibiotic for UTI Follow-up with your bark skinner Prescriptions: New cefuroxime axetil 250 mg tablet 250 mg PO BID 7 Days Qty: 14 0RF ondansetron 4 mg tablet,disintegrating 4 mg PO Q6-8H PRN (Reason: nausea and vomiting) Qty: 10 0RF No Action ondansetron HCl [Zofran] 4 mg tablet 4 mg PO Q6H PRN (Reason: nausea and vomiting) Qty: 7 0RF omeprazole 40 mg capsule,delayed release(DR/EC) 40 mg PO DAILY Qty: 14 0RF ondansetron 4 mg tablet,disintegrating 4 mg PO Q6H PRN (Reason: nausea and vomiting) Qty: 7 0RF ondansetron HCl 4 mg tablet 4 mg PO Q8H PRN (Reason: nausea and vomiting) 4 Days Qty: 12 0RF metronidazole 500 mg tablet 500 mg PO BID 7 Days Qty: 14 0RF acetaminophen [Tylenol Extra Strength] 500 mg tablet 500 mg PO Q6H PRN (Reason: fever or pain) Qty: 14 0RF naproxen 500 mg tablet 500 mg PO BID PRN (Reason: pain) 10 Days Qty: 20 0RF cyclobenzaprine 5 mg tablet 5 mg PO Q8H PRN (Reason: pain (scale score 7-10)) 5 Days Qty: 14 0RF lidocaine [Lidoderm] 5 % adhesive patch,medicated 1 patch topical DAILY MDD remove after 12 hours PRN (Reason: pain) Qty: 30 0RF Rx Instructions: leave on most painful area for up to 12 hrs acetaminophen [Tylenol Extra Strength] 500 mg tablet 500 mg PO Q6H PRN (Reason: pain or fever) Qty: 20 0RF lidocaine [Lidoderm] 5 % adhesive patch,medicated 1 patch topical DAILY MDD remove after 12 hours PRN (Reason: pain) Qty: 30 0RF Rx Instructions: leave on most painful area for up to 12 hrs naproxen 500 mg tablet 500 mg PO BID PRN (Reason: pain) 10 Days Qty: 20 0RF ibuprofen 800 mg tablet 800 mg PO Q8H PRN (Reason: pain) Qty: 14 0RF acetaminophen [Tylenol Extra Strength] 500 mg tablet 1,000 mg PO QID PRN (Reason: fever or pain) Qty: 14 0RF pyridoxine (vitamin B6) 25 mg tablet 25 mg PO TID 30 Days Qty: 90 0RF cimetidine 800 mg tablet 800 mg PO BID Qty: 60 0RF Rx Instructions: administer with meals metoclopramide HCl [Reglan] 10 mg tablet 10 mg PO Q6H PRN (Reason: nausea and vomiting) Qty: 20 0RF cephalexin 500 mg capsule 500 mg PO TID 7 Days Qty: 21 0RF Stand Alone Forms: Work/School Release
[2023-06-22 05:32] LABS: MANUAL DIFF FLAG NO
[2023-06-22 05:33] LABS: Basophils Percent Auto 0.3 % (0-2); Eosinophils Absolute Auto 0.1 X10*3/uL (0.0-0.4); Eosinophils Percent Auto 0.8 % (0-4); Hematocrit 32.6 % (37.0-47.0); Hemoglobin 11.1 g/dl (12.0-16.0); Imm Gran Abs Auto 0.05 X10*3/uL (0.00-0.03); Imm Gran Pct Auto 0.8 % (0.0-0.4); Lymphocytes Absolute Auto 1.1 X10*3/uL (1.2-4.9); Mean Corpuscular Hemoglobin 30.7 pg (27.0-33.0); Mean Corpuscular Volume 90.1 fL (80.0-98.0); Mean Platelet Volume 11.7 fL (9.4-12.3); Monocytes Absolute Auto 0.7 X10*3/uL (0.1-1.2); Monocytes Percent Auto 11.2 % (2-11); Neutrophils Absolute Auto 4.7 x10*3/uL (2.0-8.3); Neutrophils Percent Auto 70.9 % (45-73); Platelet Count 207 X10*3/uL (160-400); Red Blood Count 3.62 X10*6/uL (4.20-5.50); Red Cell Distribution Width 12.4 % (11.0-16.0); White Blood Count 6.6 X10*3/uL (4.8-10.8)
[2023-06-22 05:39] LABS: Appearance Urine Cloudy; Color Urine Yellow; Glucose Urine UA Negative (Negative); Leukocyte Esterase Urine Small (1+) (Negative); Nitrite Urine Negative (Negative); Specific Gravity - Urine 1.025 (1.005-1.025); UMIC TRIGGER UACC YES; Urine Blood Negative (Negative); Urine Ketones Negative (Negative); Urine Protein 30 (1+) mg/dL (Neg-Trace)
[2023-06-22] MEDS: 0.9 % Sodium Chloride 1,000 ML 999 ML IV (05:39)
[2023-06-22] MEDS: ondansetron HCL 4 MG/2 ML VIAL IVPUSH (05:41)
[2023-06-22 05:49] LABS: Bacteria Urine 2+ (None Seen); Hyaline Casts Urine 0-2 /LPF (0-2); Squamous Epithelial Cell Urine >20 /HPF (0-2); UACC Culture Trigger YES; WBC Urine 21-50 /HPF (0-5)
[2023-06-22 05:50] LABS: Alanine Aminotransferase 9 U/L (0-31); Albumin Level 3.2 g/dL (3.5-5.0); Alkaline Phosphatase 206 U/L (39-117); Anion Gap 12 (12-20); Aspartate Amino Transferase 18 U/L (5-31); Bilirubin Total 0.5 mg/dL (0.0-1.0); Blood Urea Nitrogen 5 mg/dL (9-16); Calcium 8.9 mg/dL (8.4-10.2); Carbon Dioxide 17 mmol/L (22-29); Chloride 111 mmol/L (96-108); Creatinine Clr Calc Pharmacy 131.4; Estimated Glomerular Filt Rate > 60; Glucose Random 84 mg/dL (60-115); Lipase 15 U/L (8-78); Magnesium 1.7 mg/dL (1.6-2.6); Potassium 3.7 mmol/L (3.3-5.1); Sodium 136 mmol/L (135-145); Total Protein 6.4 g/dL (6.5-8.0)
[2023-06-22] MEDS: cefTRIAXone sodium 1 GM in 0.9 % Sodium Chloride 50 ML IV (07:07)
== END 2023-06-22 07:46 | disposition home or self-care (01) ==
PROVIDERS: Emergency Provider Internal Medicine
DX: K52.9 Noninfective gastroenteritis and colitis, unspecified (principal); N39.0 Urinary tract infection, site not specified; Z20.822 Contact with and (suspected) exposure to COVID-19; Z20.828 Contact with and (suspected) exposure to other viral communicable diseases
CPT/HCPCS: 0241U; 36415; 80053; 81001; 83690; 83735; 85025; 87086; 96374; 96375; 99284; J0696; J2405

== ENCOUNTER 2023-08-11 04:38 | Emergency (ER) | payer OTHER, SELFPAY ==
[2023-08-11 04:40] VITALS: BP 111/67; PULSE 123; RESP 18; TEMP 37.4; O2SAT 97; BMI 28.5
--- OUTSIDE RECORDS SUMMARY | 2023-08-11 05:11 | XMS_ITS | Continuity of Care Document ---
Author Name Unknown Organization [facility] ter Address [address] [place] [id number] Care Team Providers Care Legal Writing Professor Name Role Phone Benja COOPER, Ca Amado Primary Care Physician Encounter [facility] Date(s): 06/29/23 - 07/02/[address] [id number] Discharge Disposition: A-D/C Home Attending Physician: Gracy De Los Santos MD Admitting Physician: Gracy De Los Santos MD Referring Physician: Gracy De Los Santos MD Allergies, Adverse Reactions, Alerts Substance Reaction Severity Status Apples Active Medications acetaminophen 325 mg oral tablet 650 mg, By Mouth, Every 4 hours, PRN, (1-3), may give 325mg per patient preference and re-dose [id number] within 4 hours, if needed. Patient should only receive a total of 650mg of Acetaminophen every 4 hours., Refills 0, Maintenance, Pain , Mild, 0... Start Date: 07/01/23 Status: Ordered Acetaminophen Tablet 650 mg, Tablet, By Mouth, Every 4 hours, PRN for Pain , Mild, (1-3), may give 325mg per patient preference and re-dose with 325mg within 4 hours, if needed. Patient should only receive a total of 650mg of Acetaminophen every 4 hours., Routine, 06/30... Start Date: 06/30/23 Stop Date: 07/03/23 Status: Discontinued Docusate Sodium Capsule 100 mg, 1, capsule, By Mouth, 2 times a day, PRN, Refills 0, Maintenance, Constipation, 07/01/23 11:20:00 EDT, Partial fill upon patient request if the prescription is for a schedule II opioid drug. Start Date: 07/01/23 Status: Ordered ibuprofen 800 mg oral tablet 800 mg, By Mouth, Every 8 hours, PRN, (4-6), may give 400mg per patient preference and re-dose [id number] within 8 hours if needed. Patient should only receive a total of 800mg of Ibuprofen every 8 hours., Refills 0, Maintenance, Pain , Moderate, 09... Start Date: 07/01/23 Status: Ordered Multivitamins with Vitamin B Complex, Vitamin C, Minerals and L- Methylfolate oral capsule 1 capsule, By Mouth, Daily, 0 Refills, Maintenance, 06/29/23 17:00:00 EDT, Partial fill upon patient request if the prescription is for a schedule II opioid drug. Start Date: 06/29/23 Status: Ordered Problem List Condition Confirmation Course Effective Dates Status Health St atus Informant Asthma Confirmed Active Obese class II Confirmed Active Vital Signs Most recent to oldest [Reference Range]: 1 2 3 Height 157.4 cm (07/02/23 8:20 AM) 157.4 cm (07/02/23 12:07 AM) 157.4 cm (07/01/23 4:04 PM) Weight 87.5 kg (06/29/23 9:08 PM) 87.5 kg (06/29/23 3:57 PM) Oxygen Saturation [94-100 %] 100 % (07/02/23 8:20 AM) 100 % (07/02/23 12:07 AM) 98 % (07/01/23 4:04 PM) Pulse Rate [55-90 bpm] 68 bpm (07/02/23 8:20 AM) 66 bpm (07/02/23 12:07 AM) 71 bpm (07/01/23 4:04 PM) Body Mass Index [18.5-24.99 kg/m2] 35.32 kg/m2 *>HHI* (06/29/23 9:08 PM) Blood Pressure [90-138/55-84 mm Hg] 141/86mm Hg *H* (07/02/23 8:20 AM) 126/72mm Hg (07/02/23 12:07 AM) 123/82mm Hg (07/01/23 4:04 PM) Respiratory Rate [16-30 br/min] 18 br/min (07/02/23 8:20 AM) 20 br/min (07/02/23 12:07 AM) 18 br/min (07/01/23 10:07 PM) Temperature [96.8-100.4 DegF] 98 DegF (07/02/23 8:20 AM) 97.7 DegF (07/02/23 12:07 AM) 98.2 DegF (07/01/23 4:04 PM) Mode of Delivery (Oxygen) Room air (07/02/23 12:07 AM) Room air (07/01/23 4:04 PM) Room air (07/01/23 8:18 AM) Blood pressure sites Arm, right (07/02/23 12:07 AM) Arm, right (07/01/23 4:04 PM) Arm, right (07/01/23 8:18 AM) Temperature Route Oral (07/02/23 8:20 AM) Oral (07/02/23 12:07 AM) Oral (07/01/23 4:04 PM) Dry Weight 87.5 kg (06/29/23 9:08 PM) Weight Obtained Via Patient/family stated (06/29/23 9:08 PM) Standing scale (06/29/23 3:57 PM) Dry Weight Obtained Via Patient/family stated (06/29/23 9:08 PM) History and physical note * Terrence MCKAY, Lashaun Tapia: PERFORM Event Display: History and Physical Hospital Authored Date: [id number] Patient: ??MARLA MCLEAN ? Age:??22 Years?Sex:??Female?:??2000?? OB Reason for Admission OB Reason for Admission?? No qualifying data available. LMP/EGA/NAOMY Gestational Age (EGA) and NAOMY? * Note: EGA calculated as of 06/29/2023 ?? NAOMY:??06/29/2023?EGA*:??40 weeks ? History?(0,0,0,0)?Method:??Last Menstrual Period??(09/22/2022) History of Present Illness Marla is a 22yo @ 40.0 who presents to [facility] with c/o contractions.?? Notes contractions forthe past two days, became worse around 1400 this afternoon.?? Denies vb or lof.?? GBS positive.?? No recent cervical check. Review of Systems Constitutional:??No weight loss, fever, chills, weakness or fatigue. HEENT:??No visual loss, blurred vision, double vision or yellow sclera. No hearing loss, sneezing, congestion, runny nose or sore throat. Skin:??No rash or itching. Cardiovascular:??No chest pain, chest pressure or chest discomfort. No palpitations or pedal edema. Respiratory:??No shortness of breath, cough or sputum production. Gastrointestinal:??No anorexia, nausea, vomiting or diarrhea. No abdominal pain or blood in stool. Genitourinary:??No burning micturition. No urinary frequency or incontinence. Neurologic:??No headache, dizziness, syncope, unilateral weakness, ataxia, numbness or tingling in the extremities. No change in bowel or bladder control. Musculoskeletal:??No muscle pain, back pain, joint pain or stiffness. Hematologic:??No bleeding or bruising. Lymphatics:??No enlarged lymph nodes. Psychiatric:??No depression or anxiety. Endocrine:??No reports of sweating. No cold or heat intolerance. No polyuria or polydipsia. Physical Exam Vitals & Measurements T:??98.3?F?? HR:??71??(Peripheral)?? RR:??20?? BP:??124/77?? SpO2:??100%?? WT:??87.5??kg?? General:??Alert, or signs of distress Mental Status:??Oriented to person, place and time. Normal affect. Respiratory:??Clear to auscultation. No wheezing, rales or rhonchi. Cardiovascular:??Heart sounds normal. Regular rate and rhythm, no murmurs appreciated Gastrointestinal:??Abdomen soft, non-tender, non-distended. Gravid. Gynecologic: Cervix is 2/80/-3, bulging, vertex Genitourinary:??No costovertebral angle tenderness. Neurologic:?Moves all extremities spontaneously.?? Skin:??No rashes or lesions. No petechiae or purpura. No edema. Musculoskeletal:??No cyanosis or clubbing. No gross deformities. Normal range of motion. OB Assessment Baby A Baseline:130 Baseline Description:Normal, 110-160 bpm Baseline Variability:Moderate variability Accelerations:Present Deceleration:None Cervical Estimated Weight:3400 gm Membrane Status:Bulging Cervical Cervical Dilatation3 cm Cervical Ubgukjsaux87% Station-3 Assessment/Plan 40 weeks gestation of (Z3A.40):? 22yo @ 40.0 ?? Asthma (J45.909):? Albuterol PRN ?? Non-stress test reactive (Z36.89):? RNST ?? Uterine contractions (O47.9):? Contractions q 4-5 minutes, very uncomfortable Teary at bedside Cervix is 2/80/-3, intact, vertex by VE GBS positive Will plan recheck in 2 hours after ambulation / birthing ball @ bedside ?? 1930: Patient screaming and crying, very uncomfortable Unsure if she felt a pop in the shower, no leaking since SROM check negative Cervix is now 3/80/-3, BBOW ?? Admit to L&D??in early labor Standard admit labs-see orders?? Covid swab ordered?? EFM: continuous Desires epidural KALANI -- order placed Dr. Burk and Dr. Villavicencio PGY1 paged and aware of pt's admission and status?? OB History History?(0,0,0,0)?No previous pregnancies history have been recorded Labs Labs Labs & Tests Antibody Screen: Negative (12/20/22) Blood Type: O Positive (12/20/22) Down Syndrome Age Risk FTS: Age Risk: (12/20/22) Down Syndrome Scrn Risk FTS: Screening Risk: (12/20/22) Glucose 50 Gm, +60 Minutes: 76 mg/dL (04/10/23) Hct:??34.7 %??Low (04/04/23) Hepatitis B Surface Antigen: NEGATIVE (12/20/22) Hepatitis C Ab: NEGATIVE (12/20/22) Hgb:??11.5 Gm/dL??Low (04/04/23) HIV 4th Generation Ab-Ag Result: NEGATIVE (12/20/22) RPR Titer Result: NOT INDICATED (04/04/23) Rubella IgG Ab: POSITIVE (12/20/22) Syphilis Screen by ANTONIO: NEGATIVE (04/04/23) Trisomy 18 Scrn Risk FTS: Screening Risk: (12/20/22) Urine Culture: Urine Culture (12/28/22) Problem List Active Active Problem List Asthma: (Medical) : (Obstetric) (09/22/22) Procedure/Surgical History No qualifying data available. Home Medications Albuterol Aspirin: 81 mg = 1 capsule, By Mouth, Every 24 hours Multivitamin, : 1 capsule, By Mouth, Daily Allergies Apples Family History No family history recorded. Plan OB Plan Circumcision Plan: None (06/29/23) Feeding Plan: Breast milk (06/29/23) Hospital Progress note * Marta BERNSTEIN, Gisella Coleman: PERFORM Event Display: Progress Note Hospital Authored Date: [id number] Patient alert and oriented x3. Tolerating walking and pain management. Voiding and passing. Bowel movement noted on 07/02/2023, without complications. Discharge orders in and reviewed. Patient signed and placed copy in front of mom's chart. * Natali Lewis RN: PERFORM, SIGN, VERIFY Event Display: Progress Note Hospital Authored Date: [id number] Patient: MARLA MCLEAN Age: 22 years Sex: Female : 2000 Associated Diagnoses: None Author: Natali Lewis RN Findings Narrative/Incidental Pt alert and oriented x4. VSS overnight. Pain well controlled with PRN meds. OB stable. Down 1, firm. Mild lochia noted with no clots observed. + hemorrhoids, prep h and tucks for comfort.+CMS noted to all extremities. Trace edema. Tolerating PO intake without nausea, passing flatus. Denies issues with urination. Ambulating to bathroom and within room with steady gait. Formula feeding infant. Bonding appropriately. Safe sleep continuously encouraged. No acute distress noted. Call ruano within reach. Plan of care updated.. * J Luis Russell: PERFORM, SIGN, VERIFY Event Display: Progress Note Hospital Authored Date: [id number] Patient: MARLA MCLEAN Age: 22 years Sex: Female : 2000 Associated Diagnoses: None Author: J Luis Russell Findings Problem Related to Alteration in Comfort : Alteration in Comfort/new 07/01/2023 8:00 EDT Alteration in Comfort Related to Other: Vaginal Delivery Goals & Outcomes: Comfort Pt will report acceptable level of comfort & pain control, Pt will state importance of adhering to pain strategy regime, Pt will demonstrate necessary skills to manage pain, Non-verbal indicators will indicate comfort/pain control Interventions Implemented: Comfort Assess pain using appropriate pain scale/tools, Assess aggravating factors & prevent them accordingly, Assess alleviating factors & promote them accordingly BH Goals/Interventions, Comfort Yes Comfort, Problem Start 06/30/2023 12:53 Reviewed plan with, Comfort Patient Patient Progression, Comfort Pt progressing according to plan Comfort, Problem Ongoing Yes . Pt is 1 day s/p vaginal delivery. VSS. Fundus firm-1, vaginal flow is mild. Perineum intact, small cluster of hemorrhoids noted upon exam. Pt states hemorrhoids are bothering her. Sitz bath given andeducated how to use. PrepH cream ordered, will apply when pharmacy delivers. Pt is up and voiding. T olerating diet. Medicated wtih tylenol/motrin as documented. Bonding with . Call ruano within reach. Note * Marta BERNSTEIN, Gisella Coleman: PERFORM Event Display: Discharge/Transfer Note Hospital Authored Date: [id number] Nursing Discharge Note Entered On: 07/02/2023 14:54 EDT Performed On: 07/02/2023 14:10 EDT by Marta BERNSTEIN, Gisella Coleman Nursing Discharge Note 2 Discharge Time : 07/02/2023 14:10 EDT Discharge Level of Care at Discharge : Home/Fdc/Foster Care Patient Left Unit Via : Ambulatory Patient Accompanied Off Unit with : Significant other DC Instructions Provided & Signed by Pt : Yes Patient Understands D/C Instructions : Yes Patient Instructions Discharge Signed : Yes Did Pt have Specialty Bed or Wound Vac : No Marta BERNSTEIN, Gisella Coleman - 07/02/2023 14:49 EDT * Beverly Graves DO D: PERFORM Event Display: Discharge/Transfer Note Hospital Authored Date: [id number] Patient: ??MARLA MCLEAN ? Age:??22 Years?Sex:??Female?:??2000?? Admit Date Admission Date: 06/29/2023 Discharge Date 07/02/2023 OB Reason for Admission OB Reason for Admission Reason for admission: [facility] Course 22 year old G1 with IUP at 38 4/7wga was admitted into labor. She received an epidural and AROM during delivery. course has been uncomplicated. She wa discharged home on PPD2 after meetingpostpartum milestones. Objective/Physical Exam on Day of Discharge Vitals & Measurements T:??97.7?F?? HR:??66??(Peripheral)?? RR:??20?? BP:??126/72?? SpO2:??100%?? HT:??157.4??cm?? WT:??87.5??kg?? BMI:??35.32?? General: pleasant, cooperative,??laying comfortably in bed, well appearing, in no acute distress CV: Regular rate and rhythm, no murmurs Pulm: Clear to auscultation bilaterally, equal bilaterally, no use of accessory muscles,??no wheezing, rales,??or crackles Abd: soft, appropriately tender, fundus firm, below umbilicus Sap Abap Programmer: Minimal spotting on peripad. Psych: appropriate mood and affect. answering questions appropriately. Ext: non-tender, non-edematous Assessment/Plan/Discharge Diagnosis Assessment:??Patient is a PPD 2 s/p vaginal delivery. She is doing well, meeting milestones, and is appropriate for discharge home this AM. ?? Vaginal delivery (O80):??routine care meeting milestones pain: ibu, tyl visit in 6w with REID reviewed warning signs for when to call/return ?? Future Appointments Call REID for 6w visit Delivery Summary Delivery Summary Maternal Information ??Labor Information ?Baby A ?Labor Onset Methods: ??Spontaneous, Augmented ?Augmentation Methods: ??Artificial rupture of membranes, Oxytocin infusion ??Delivery Information ?Gestational Age at Delivery: ??38W 4D ?Anesthesia OB: ??Epidural ??06/29/23 21:08:40 ?Obstetrical Laceration: ??Perineum intact ?Delivery Complications: ??None ?Blood Loss(ml): ??300 mL ? Baby A ??Delivery Information ?Delivery Type: ??Vaginal ?Date, Time of : ??06/30/23 14:35:00 ? Position: ??Hands & Knees ?Foot of bed removed: ??No ?Delayed Cord Clamping: ??Yes ?Placenta Delivery Date/Time: ??06/30/23 14:41:00 ?Placenta Delivery Method: ??Spontaneous ?Placenta Appearance: ??Normal ?Placenta to Pathology: ??No ??Care Team ?Delivery CNM: ??Sen CNM, Michaela Villalpando ?commission broker #1: ??Scotty BERNSTEIN, Saundra ?commission broker #2: ??Orion BERNSTEIN, Daniela ?Printing Technician: ??Alley Fletcher MD ?Anesthesiology Attending: ??Sandra Thomas MD ??Labor Information ?ROM Date, Time: ??06/30/23 08:37:00 ? monitoring: ??External monitor ?? Information ? Outcome: ??Live ? Position: ??Occiput anterior ? Weight: ??3.254 kg ? Score 1 minute: ??8 ? Score 5 minute: ??9 ? Score 10 minute: ??9 ?Transferred To: ?? Care area with Family ?Umbilical Cord Description: ??3 vessel cord ? Complications: ??None ?Gender: ??Male ? Procedures Performed Vaginal delivery ? Discharge Medications ???Acetaminophen (acetaminophen 325 mg oral tablet)???Docusate (Docusate Sodium Capsule)???Ibuprofen (ibuprofen 800 mg oral tablet)???Multivitamin, ( Multivitamins with Vitamin B Complex, Vitamin C, Minerals and L- Methylfolate oral capsule) Infant Feeding Method No Results Follow-Up Appointments Added Follow Up ?Time Frame ?Comments Gracy De Los Santos MD?2 to 3 weeks?To be schedule with Michaela Dai CNM Patient Instructions - Follow up in the office at 6 weeks, please called to schedule an appointment -Continue on schedule regimen of tylenol and ibuprofen -Continue stool softeners -Perineal care -Apply ice in the perineal region -Use heating pad on the lower abdomen -Peribottle -Call your doctor if: You note fever of 100.4 or greater, heavy vaginal bleeding, foul-smelling vaginal discharge, difficulty or burning with urination, nausea and vomiting with inability to toleratefood, pain not controlled by your prescribed medications, shortness of breath or chest pain.??Counseled to place nothing in the vagina in the next 4-6wks.??No intercourse, tampons or douching [id number].??Discussed and depression. Encouraged pt to walk as often as able to. * Marta BERNSTEIN, Gisella Coleman: PERFORM Event Display: Patient Education/Instruction Authored Date: [id number] Inpatient [place] [address] Name: MARLA MCLEAN : 2000 Visit: 06/29/2023 19:53:00 Current Date: 07/02/2023 11:55 Account: [id number] Inpatient Adult Discharge Instructions We would like to thank you for allowing us to assist you with your healthcare needs. The following includes patient education materials and information regarding your injury/illness. Our entire staffstrives to provide an excellent experience for our patients and their families. PLEASE ENSURE YOU FOLLOW-UP PER THE INSTRUCTIONS BELOW! ?? YOUR OPINION IS IMPORTANT TO US! Please complete the survey you may receive by mail or email. Your feedback will be used to make improvements to the healthcare experiences of our patients and their families. Surveys are administered by [employer]. ?? If further treatment with your primary care physician or another doctor is recommended, it is important for you to keep the appointment. Call your primary care physician or return to the Emergency Department immediately if your condition worsens, fails to improve, or new symptoms develop. If you need to find a doctor, you can call [facility] for a referral at [phone] or toll free at [phone]) or log in to [email or web address].. ?? [facility], in keeping with [facility] guidance, no longer requires face masks for staff, patientsor visitors in most situations. Similiar to time spent indoors at other locations, there is the chance that you were exposed to repiratory viruses during your time with us (such as flu or COVID-19). If you develop symptoms concerning for a viral respiratory infection, please seek testing (and treatment if indicated) from your medical provider or home test kit. ?? You can view and manage your care through the patient portal or by using a health care enedina of your choosing. [employer] is a website that allows you to securely view your medical information including your hospital discharge summary, office visit summaries, medications and follow-up visits. You can also request appointments, renew medications, and request access to your medical information using a health care enedina of your choosing, or just ask a question. You can enroll at [email or web address] or register during your next office visit. You have been discharged from [facility], Patient Care Unit: WIN2. If you have any questions regarding these instructions after you leave, please call us and we will be happy to assist you. [facility] Your Care Team Attending Physician Wm Abreu MD, Gracy Discharging Providers Beverly Graves DO Reason for Admission Labor Your Diagnosis Vaginal delivery Tests Performed Below is a partial list of the tests performed during your hospitalization. You may have had other tests and procedures not included in this list. Please discuss all test results with your provider. CBC Type and Screen Primary Care Provider Benja COOPER, Ca Amado Advance Directive Health Care Proxy on File No Discharge Vitals Temperature: 98 DegF Height: 157.4 cm Pulse Rate: 68 bpm Weight: 87.5 kg Respiratory Rate: 18 br/min Body Mass Index:??35.32 kg/m2??Critical Systolic Blood Pressure:??141 mm Hg??High Body surface area: 1.96 Diastolic Blood Pressure:??86 mm Hg??High ?? Oxygen Saturation: 100 % ?? Studies Pending All tests and labs ordered during this hospital stay have been completed unless listed below. Please discuss all pending results with your provider listed above in these instructions. ?? COVID-19 (2019 Novel Coronavirus) PCR What to do next Instructions From Your Doctor - Follow up in the office at 6 weeks, please called to schedule an appointment -Continue on schedule regimen of tylenol and ibuprofen -Continue stool softeners -Perineal care -Apply ice in the perineal region -Use heating pad on the lower abdomen -Peribottle -Call your doctor if: You note fever of 100.4 or greater, heavy vaginal bleeding, foul-smelling vaginal discharge, difficulty or burning with urination, nausea and vomiting with inability to toleratefood, pain not controlled by your prescribed medications, shortness of breath or chest pain.??Counseled to place nothing in the vagina in the next 4-6wks.??No intercourse, tampons or douching [id number].??Discussed and depression. Encouraged pt to walk as often as able to. Discharge Orders You Need to Schedule the Following Appointments Follow Up with??Ca Yousif When:??07/03/2023 01:15 PM EDT Where: [address] [facility] [place] [address]- Business (1) Follow Up with??Wm Abreu MD, Gracy When:??Within 2 to 3 weeks Why: To be schedule with Michaela Dai [facility] [address] [facility] [employer] [place] [address]- Discharge Medications MARLA MCLEAN :2000 Visit Date:06/29/2023 Medications: Please continue your medications until treatment is completed or stopped by your provider. Medications not listed below should be discontinued. Discuss any questions related to medications with your provider. What How Much When Instructions Next Dose New Acetaminophen (acetaminophen 325 mg oral tablet) 650 Milligram Oral Every 4 hours as needed for Pain , Mild (1-3), may give 325mg per patient preference and re-dose with 325mg within 4 hours, if needed. ?? Patient should only receive a total of 650mg of Acetaminophen every 4 hours. ?? New Docusate (Docusate Sodium Capsule) 100 Milligram Oral Twice a day as needed for Constipation New Ibuprofen (ibuprofen 800 mg oral tablet) 800 Milligram Oral Every 8 hours as needed for Pain , Moderate (4-6), may give 400mg per patient preference and re-dose with 400mg within 8 hours if needed. ?? Patient should only receive a total of 800mg of Ibuprofen every 8 hours. ?? Unchanged Multivitamin, ( Multivitamins with Vitamin B Complex, Vitamin C, Minerals and L-Methylfolate oral capsule) 1 capsule Oral Daily ?? What How Much When Comments Stop Taking Albuterol (albuterol (OP)) Stop Taking Aspirin (aspirin 81 mg oral capsule) 1 capsule Oral Every 24 hours Test Results Below is a partial list of the most recent Laboratory test results done prior to this discharge. You may have had other tests and procedures not included in this list. Please discuss all test resultswith your provider. CBC (06/29/2023) ???WBC - 10.4 k/mm3???RBC - 3.78 m/mm3???Hgb - 11.6 Gm/dL???Hct - 34.4 %???MCV - 91.0 femtoliters???MCH - 30.7 pg???MCHC - 33.7 g/dL???Platelet Count - 231 k/mm3???RDW-SD - 41.0 femtoliters???MPV - 12.4 femtoliters???Nucleated RBC (Automated) - 0.0 #/100 WBC'S???Abs. NRBC - 0.0 k/mm3 Type and Screen (06/29/2023) ???Blood Type - O Positive???Antibody Screen - Negative Allergies (NKA means No Known Allergies) Apples Problems Active Problems??(3) Asthma?? Obese class II? Education Materials Below is the list of Educational Leaflet Providered with your Discharge Instructions. OB PP [facility]- Discharge Instructions?? Valuables and Belongings I fully understand and agree that [facility] accepts no responsibility for all my personal [...] to send valuables and belongings home. ? Other Discharge Information ? Pulmonary Rehab Status?? Pulmonary Rehab Discharge Status?? Respiratory Rate: 18 br/min ? Common Emergency Awareness Tips IS IT [...] are strongly encouraged to quit. Please call [facility] Link at [phone] or [phone] ([phone]) or log in to [email or web address] for referrals to smoking cessation programs. ?? 639 Suicide & Crisis Lifeline is available 07/05 if you or someone you know needs to find a reason to keep living. By calling 992 you'll be connected to a skilled, trained counselor at a crisis center in your area. INPATIENT DISCHARGE INSTRUCTIONS SIGNATURE PAGE VINAYCANDIDAMARLA [facility] Hospital Registration Date and Time:06/29/2023 19:53 EDT Primary Care Physician: Benja COOPER, Ca Amado, Attending Physician: Wm Abreu MD, Gracy, I MARLA MCLEAN, have received the above patient education materials/instructions and have verbalized understanding. If ambulance or transport services are being used I further acknowledge being given a choice of service. ?? If you need to contact me, please call me at this number: . Patient/Glazing Department Supervisor Name: Patient/Glazing Department Supervisor Signature: Relationship to Patient: Witness Name/Signature: Date: * Gisella Lozano RN: PERFORM, SIGN, VERIFY Event Display: Patient Education Handout Authored Date: [id number] * Gisella Lozano RN: PERFORM Event Display: Patient Education Leaflets Authored Date: OB PP [facility]- Discharge Instructions ?? 209 Discharge Care Instructions for the New Mom and Baby Please take a few moments to read through these helpful instructions before you leave the hospital.?? Your nurse will be glad to answer any questions you may have.?? You can also find this and more information throughout the purple Becoming a Family booklet, [facility]???s New Beginnings Guide and the Consultation Services Guide given to you after the of your baby.?? You may also phone our nurses stations if you have further questions.?? [facility]:?? First Floor ([phone]), Second Floor ([phone]).?? Please call your provider if you have any questions or concerns?? before your next appointment. For ongoing support please ???Like?? us on our Facebook page ???[facility]???s New Beginnings?? andsign up for our email newsletter at [email or web address].?? News and information will besent to you until your baby???s third birthday. Instructions for the New Mother Activity: For the next 2 weeks at home ??? no heavy lifting, avoid unnecessary stair climbing, and no driving(especially if you are taking medicine that may make you sleepy or feel that you are sleep deprived).?? For the next 4-6 weeks - no tampons, no douches, no sexual intercourse. Use your faisal bottle to rinse your perineum until your vaginal flow stops.?? If you have stitches in your bottom, they generally dissolve within 7-10 days.?? Apply Tucks/witch alyse pads until your soreness subsides.?? Use your bathroom at home every 3 to 4 hours, rinse, and change your pads. Warm showers feel great on achy muscles, sore backs and sore bottoms. Exercise: Walking is the best form of exercise.?? Wait until your follow up appointment with your provider in4-6 weeks before engaging in more strenuous activity. Diet: Drink plenty of fluids to avoid constipation and to help support your recovery. Eat plenty of iron rich foods such as red meat, iron fortified cereals like Total and Cream of Wheat, raisins, prunes, greens and spinach.?? These will help to build your blood count back up as all women lose some blood after delivery.?? Also add foods rich in Vitamin C such as strawberries, oranges, papayas, kale and ruano peppers. Continue to take your vitamins if you are .?? If you are not follow the instructions of your provider.?? If you were prescribed iron supplements such as ferrous sulfate, it is important to continue these until your doctor or tractor drill operator tells you to stop. Breast Care for Nursing Mothers: Wear a comfortable fitting, supportive nursing bra.?? An underwire bra is not recommended. Express drops of breast milk and rub over your nipples and areola (brown area) before and after each feeding to protect and heal sensitive skin and then air dry your nipples.?? If you are experiencing any soreness, you may purchase nipple cream such as TenderCare or Lansinoh.?? Use it in the following manner:?? finish your feeding or pumping session, self-express colostrum onto your nipple and air dry, apply the nipple cream to the nipple and areola.?? Use only small amounts for best results. If you are having difficulty getting the baby to latch onto the breast due to swelling of the areola, try applying pressure with your fingers for a couple of minutes above and below your nipple and walk your fingers outward softening the area and pushing the swelling away.?? This technique is knownas reverse pressure softening.?? For demonstrations of this and other techniques such as the [place] Hand Expression technique, please refer to the resources section of the Consultation Services Guide that you received from services. When your milk first comes in, usually within 3 to 5 days after delivery, you may experience engorgement.?? Your breasts may become swollen and very tender.?? Cold compresses work great to help with discomfort and reduce swelling. It will get better in a couple of days.?? Continue to nurse your baby frequently.?? Call [facility]???s Consultation Service at [phone], press 1 to schedule an outpatient appointment or press 3 and a cycle consultant will return your call that day or the next if you call after 3pm. Breast Care for Bottle Feeding Mothers: Engorgement may occur within the first week after delivery.?? Your breasts may become hard and verytender.?? A cool compress of cleaned raw green cabbage leaves applied to the breast and changed as leaves wilt has been proven helpful for many women.?? Ice packs or frozen bags of peas also work nicely to ease the discomfort.?? The soreness will only last a couple of days. Keep your back turned to the water while showering to decrease breast stimulation. Wear a snug fitting bra such as a sports bra. Incision Care Following Tubal or Section: You may shower as directed by your doctor or tractor drill operator.?? Pat your incision dry with a clean towel.??You will not need a bandage after the first day. Call your doctor or tractor drill operator with any signs of infection such as a hard, hot swollen tender incision, especially if the skin around the incision looks pink or red.?? Yellow drainage with an odor may also be a sign of infection to report. Call your doctor or tractor drill operator if the incision begins to separate. If you have steri-strips on the incision, they will likely fall off in the first week.?? If they have not fallen off by 10 days after delivery, you may remove them. Control: Your doctor or tractor drill operator will discuss control methods with you when you are discharged from thespital or at your checkup.?? Be sure to let your provider know if you are . You had a Paragard IUD placed on .?? This control method is effective for 10 years. You had a Liletta placed on .?? This control method is effective for up to 5 years. You had a Nexplanon placed on .?? This control method is effective for up to 3 years. You received a Depo Provera injection on .?? This control method is effective as longas you repeat it every 3 months.?? Schedule your next dose before . You have a prescription for control pills .?? It is important to take a pill everyday at around the same time of day for effective control protection.?? Pain Management: Cramping after is common and increases in strength with each baby you have.?? If you experience painful cramps, and have no allergies to acetaminophen (Tylenol) or ibuprofen (Motrin), you may continue to take these medications as you did in the hospital.?? Ibuprofen is also helpful with back aches following epidurals, perineal pain following a vaginal delivery, and moderate incisional pain after a section or a tubal ligation.?? If you experience gas distention, especially after surgery, you may take an over the counter medication called simethicone.?? Take these chewable tablets 4 times a day as needed and directed on the package.?? Keep moving.?? Walking or rocking in a chair, will help to move the gas along.?? Hu tea made with heated hu justine (instead of water) and a tea bag, stirred to dissolve carbonation (bubbles) is a helpful drink to soothe a gassy stomach. Warning Signs of a Problem to Notify Your Doctor or Licensed Surveyor of: Heavy vaginal bleeding ??? which is soaking a pad every hour with bright red blood. Passing blood clots the size of an egg or larger. An incision that is not healing. A temperature greater than or equal to 100.4 especially if accompanied by any of the following symptoms ??? painful, frequent urination; extreme back or flank pain; lower belly pain with a foul smellto your vaginal flow; a red hard hot area on your breast.?? Severe headache that does not go away after taking acetaminophen or ibuprofen.?? A headache that changes your vision, including seeing spots or blurring. Right sided upper abdominal pain along the rib cage area. Pain in your legs that is warm and tender to the touch. depression signs may include ??? loss of interest in your baby, weepiness, difficulty focusing, weight loss with no appetite, exhaustion, feeling overwhelmed or anxious, feelings of despair, or thoughts of harming yourself or your baby.?? These symptoms are important and should be discussed with your doctor or tractor drill operator. depression may develop over a period of time and needs prompt medical attention.?? Do not suffer in silence.?? In both the Becoming a Family booklet and the[facility] Guide there is a screening tool used to identify women at risk, called the [place] Scale which you have taken in the office prior to delivery and again during your hospital s ben.?? Three to four weeks after your delivery, and before your check with your provider, take this test and share your results with your provider.?? Be sure to mention any score of 10 or more.?? Many women, and even some partners, may experience the ???baby blues?? .?? This is a state of feeling overwhelmed and weepy.?? Discomfort from childbirth, hormonal changes, exhaustion, changes to your body and lifestyle are a few of the things that contribute to the highs and lows new parents go through.?? Don???t be afraid to ask your partner or family and friends for some help at home so you can get some rest and a few minutes to yourself.?? The blues will quickly pass. Personal Safety: Every person has the right to feel safe at home and live free from physical or emotional harm.?? Ifyou have suffered mental or physical abuse at home, you are not alone.?? There is help.?? Please call [employer] or the [employer] Program at [phone]. CARE Bathing: Give your baby a sponge bath until the cord falls off in about 1-3 weeks.?? It is not necessary to bathe your baby every day, usually every few days is sufficient. ??Keep the cord area dry.?? Some baby girls will have a small bloody vaginal discharge. No need to worry as this is normal. It is not necessary to use lotions on the baby???s skin.?? Powders and oils are not recommended.?? Babies often get rash on their skin which comes and goes quickly and does not require any special care.?? Diaper rash can be treated with a zinc oxide preparation such as Desitin or Balmex diaper cream. Circumcision Care: Your nurse will teach you how to care for your baby???s circumcision depending on the type of circumcision your doctor or tractor drill operator performed.?? Most circumcisions require A&D ointment for about 4-5 days.?? Be generous with the amount of A&D used as this will prevent the diaper from sticking when you go to change it. If a plastibell circumcision was done, the plastic ring around the penis will fall off in a week orso. Diapers: After the 1st??few days, the baby will start wetting more often.?? A breast fed baby will wet about6-8 times a day once mom???s milk comes in ??? usually day 4 or 5.?? This is a good sign that the baby is getting plenty to eat.?? You may notice an orangey-pink stain in the diaper which is normal for the first few days. The baby???s first bowel movements are sticky, black and tarry.?? As the baby starts to feed more often over the next couple of days, the stool will change to a seedy yellowish green color and eventually a loose mustard like stool for a breast fed baby and a more formed yellow stool for a bottle fed baby. your Baby: ??Congratulations on deciding to breastfeed your baby! You are providing your baby with the most nourishing food source on the planet, your breast milk.?? Cues such as rooting, suckling, licking and fussing may be telling you that your baby is ready to eat ??? and it is time to offer your breasts. The first weeks following the are a time for you and your baby to learn.?? The baby may be sleepy the first day after with 8 to 12 attempts ??? including 2 to 4 good feedings.?? Over the next couple of days the baby will become more wakeful, feed 8 to 12 times a day and have more wet and poopy diapers.?? Cluster feeding, especially during the evening/night time, is normal. ?? Listen for swallowing sounds and watch the baby as they become more relaxed at the breast ??? both good signs that the baby is getting a good amount of milk.?? Refrain from smoking or eating edible marijuana while you are . Even though marijuana is legal in the state of [place],??it is harmful for your baby.??It stays in breast milk for along period of time and THC can be found in the baby's urine for up to 3 weeks. Second hand smoke can also increase the risk??of Sudden Syndrome / SIDS. ?? Nursing is wonderful but many moms and babies have some degree of difficulty with at first. Don???t give up!?? There are many resources available to help you overcome these temporary problems. Your medicine teacher wants to hear from you if you are having difficulties and can offermany helpful suggestions.?? Some offices have consultants on staff. [facility]???s Consultation Service is available 7 days a week, 8am to 3pm at [phone].?? Press 1 to schedule an outpatient appointment.?? Press 3 to leave a message for the cycle consultant, a cycle consultant will return your call that day or the next if you call after 3pm. Support Groups ??? [facility] offers free gatherings for moms and babies weekly.?? All groups meet at the [facility]???s 2nd??floor, typically in the [facility] Conference Room, Sunday???s 1 to 2 pm.?? [employer] is a worldwide organization with local community support, mother to mother support.?? Information can be found at https://www.lllusa.org Formula Feeding your Baby: Formula fed babies should eat every 3 to 4 hours.?? Look for cues that your baby is ready ??? such as rooting and sucking, licking and fussing.?? At the baby???s stomach is small and may take 10-15ml of formula.?? Over the next few days the baby will become more wakeful and feed more frequently, gradually increasing the amounts of formula taken at a feeding.?? Your medicine teacher will provideinstructions on how to increase the amount.?? Refer to packaging for formula preparation directions, depending on the type of formula you purchase ??? powder, concentrate or ready to feed. Infant Safety: ALWAYS REMEMBER - BACK TO SLEEP! Babies sleep safest on their backs.?? Every sleep.?? Every time.?? Every nap. Babies need a firm sleep surface with a tight fitting bottom sheet.?? NO loose bedding.?? NO pillows.?? NO bumper pads or rolls.?? NO heavy or fluffy blankets. NO stuffed toys. It is not safe for your baby to sleep in your bed, in a chair, or on a sofa.?? Your baby should notsleep with you or anyone else. Car Seat: Always place your baby in a rear facing car seat in the backseat of the car. Car seat inserts that come with the car seat can be used as they are crash tested with the seat.?? You should not buy additional inserts.?? Dress the baby in a weather appropriate outfit.?? Avoid bulky clothing such as snowsuits or jackets as the baby may squirm in the seat, loosening the shoulder straps and come out of the top of the harness if you need to brake hard or are in an accident.?? Once the baby issecured in the seat you can cover your little one with a blanket if needed.?? If your baby was bornprematurely, follow the directions given to you.?? If you have not already done so, check to make sure your car seat is installed correctly. Check with your local Fire and Police Department to see if they offer car seat inspections at a location close to you. Babies Can Move: ?? Never leave your baby unattended on any surface, raised or flat, or while bathing.?? They can squirm, fall or hurt themselves.?? Always fasten the safety belt when using an infantseat or swing ??? as they may lean forward and fall. Good Handwashing is the number one way you can protect the baby from too?? many germs and prevent infection.?? When family and friends visit ask that they wash their hands before holding your baby.??Also avoid crowds the first month of your baby???s life to protect from colds and flus. Shaking a baby out of frustration can cause severe and lasting damage, even to a baby.?? If you feel you are becoming angry or overwhelmed, place the baby in a safe place and walk away.?? Call a friend or family member.?? If they are not able to offer immediate help call the Parental Stress Hotline at?? , an anonymous 07/05 source of help. Warning Signs to notify your medicine teacher of: Most babies develop a small amount of jaundice (a yellowish skin color) in the face and upper chest, by about 3 days of age.?? If the yellow color extends below the baby???s belly or if the baby is very sleepy and not feeding well, call your medicine teacher. A rectal temperature of 100.4F as it could be a sign of infection. Projectile vomiting that continues with each feeding could indicate reflux or a problem with the formula. Extreme sleepiness or very fussy. Cold symptoms with nasal stuffiness, especially if the baby is having difficulty feeding. Constipation with hard stools. Blue or dusky color, call 911. If Your Baby Needs to Remain in the Hospital: Please leave your baby???s ID bracelets on if your baby needs to remain in the hospital after you are discharged home. The phone number to NICU is [phone]. The phone number to [facility] is [phone]. The phone number to [facility] is [phone]. moms should pump every 2-3 hours or 8-12 times in 24 hours.?? If unable to place the baby to breast, if you are having difficulty getting the baby to latch on, or if the baby remains inthe hospital after you are discharged ??? bring the pumped milk to the hospital, labeled with name,date and time.?? Carry it in a small cooler or diaper bag with an ice pack and bring it the next time you visit your baby.?? Consultation Services is available if you need to rent or purchase a pump or products.?? Call and leave a message at [phone] ??? press 3 and a cycle consultant will return your call that day or the next if you call after 3pm. ? Patient Care team information Care Team Personnel Name: Ca Yousif MD Position: [facility] General Pediatrics MD Member Role: PCP Address: Address: [address] [place] [address] [facility] [place], [place] [address] Name: Natali Lewis RN Position: [facility] OB RN Member Role: Patient Care Provider Care Team Related Persons Name: SREEDHAR PÉREZ Address: home [address] [address] Name: ALFONSO PÉREZ Address: home [address] [address] Name: MARLA MCLEAN Address: [address] Address: home [address] [address] [place]
[2023-08-11 05:12] LABS: COVID-19 Test Negative (Negative); IDNOW Serial# 08D9AD1C; IDNOW Serial# BCCEAD1C; Influenza A Negative (Negative); Influenza B2 Negative (Negative)
--- NOTE | 2023-08-11 05:40 | ED.GENADULT ---
HPI - General Adult General Chief complaint: General Medical Stated complaint: Chill, sore throat, congestion Time Seen by Provider: 08/11/23 05:35 Source: patient Mode of arrival: ambulatory Limitations: no limitations History of Present Illness HPI narrative: Patient comes emergency room complaining of sore throat for several days, subjective fever, chills. Patient denies shortness of breath, chest pain, no cough. Patient complaining of diffuse body aches. Related Data Previous Rx's Medication Instructions Recorded omeprazole 40 mg capsule,delayed 40 mg PO DAILY #14 caps 07/23/20 release ondansetron HCl 4 mg tablet 4 mg PO Q6H PRN nausea and 07/23/20 (Zofran) vomiting #7 tabs ondansetron 4 mg disintegrating 4 mg PO Q6H PRN nausea and 11/04/21 tablet vomiting #7 tabs acetaminophen 500 mg tablet 500 mg PO Q6H PRN pain or fever 01/03/22 (Tylenol Extra Strength) #20 tabs lidocaine 5 % topical patch 1 patch topical DAILY PRN pain #30 01/03/22 (Lidoderm) ea naproxen 500 mg tablet 500 mg PO BID PRN pain 10 days #20 01/03/22 tabs ondansetron HCl 4 mg tablet 4 mg PO Q8H PRN nausea and 01/18/22 vomiting 4 days #12 tabs metronidazole 500 mg tablet 500 mg PO BID 7 days #14 tabs 06/22/22 acetaminophen 500 mg tablet 500 mg PO Q6H PRN fever or pain 08/04/22 (Tylenol Extra Strength) #14 tabs cyclobenzaprine 5 mg tablet 5 mg PO Q8H PRN pain (scale score 08/04/22 7-10) 5 days #14 tabs lidocaine 5 % topical patch 1 patch topical DAILY PRN pain #30 08/04/22 (Lidoderm) ea naproxen 500 mg tablet 500 mg PO BID PRN pain 10 days #20 08/04/22 tabs acetaminophen 500 mg tablet 1,000 mg (2 x 500 mg) PO QID PRN 08/24/22 (Tylenol Extra Strength) fever or pain #14 tabs ibuprofen 800 mg tablet 800 mg PO Q8H PRN pain #14 tabs 08/24/22 pyridoxine (vitamin B6) 25 mg 25 mg PO TID 30 days #90 tabs 11/18/22 tablet cimetidine 800 mg tablet 800 mg PO BID #60 tabs 01/02/23 metoclopramide HCl 10 mg tablet 10 mg PO Q6H PRN nausea and 01/02/23 (Reglan) vomiting #20 tabs cephalexin 500 mg capsule 500 mg PO TID 7 days #21 caps 01/28/23 cefuroxime axetil 250 mg tablet 250 mg PO BID 7 days #14 tabs 06/22/23 ondansetron 4 mg disintegrating 4 mg PO Q6-8H PRN nausea and 06/22/23 tablet vomiting #10 tabs ibuprofen 600 mg tablet 600 mg PO Q6H PRN fever or pain 08/11/23 #20 tabs Allergies Allergy/AdvReac Type Severity Reaction Status Date / Time No Known Allergies Allergy Verified 06/22/23 04:19 Review of Systems Review of Systems: Constitutional : No Weight loss, patient complaining of subjective fever, chills No Night Sweats, No Fatigue, No Malaise ENT/Mouth : No Hearing loss, No Ear Pain, No Nasal Congestion, No Sinus Pain, No Hoarseness, complaining of sore throat, no rhinorrhea, difficulty swallowing Eyes: No pain, No Swelling, No Redness, No Foreign Body, No Discharge, No Vision Changes Cardiovascular : No Chest Pain, No SOB, No Dyspnea on Exertion, No Orthopnea, No Edema, No Palpitations Respiratory : No Cough, No Sputum, No Wheezing, No Smoke Exposure, No Dyspnea Gastrointestinal : No Nausea, No Vomiting, No Diarrhea, No Constipation, No abdominal Pain, No Hematochezia, No Melena Genitourinary : no irregular bleeding, No Dysuria, No Urinary Frequency, No Hematuria, No Urinary Incontinence, No Urgency, No Flank Pain, No Urinary Flow Changes, No Hesitancy Musculoskeletal : No joint pain, No Myalgias, No Joint Swelling Skin : No Skin Lesions, No rash Neuro : No Weakness, No Numbness, No Paresthesias, No Loss of Consciousness, No Dizziness, No Headache Psych : No Anxiety/Panic, No Depression, No SI/HI/AH/VH, No Social Issues, Heme/Lymph: No Bruising, No Bleeding,No Lymphadenopathy Endocrine : No Polyuria, No Polydipsia, No Temperature Intolerance [facility] Past Medical History Medical History Syncope Asthma Social History Social History Alcohol intake: never Smoked in Last 30 Days: No Use of substances other than those prescribed or required for medical reasons: No Advance Directives: No Advance Directives Information Provided: Yes Patient : No Physical Exam ED Vital Signs: Vital Signs - 24 hr 08/11/23 04:40 Temperature 99.3 F Pulse Rate 123 H Respiratory Rate 18 Blood Pressure 111/67 Pulse Oximetry 97 Oxygen Delivery Method Room Air BMI result Body Mass Index 28.5 Const Other: Appearance: Alert. Oriented X3. No acute distress. Eyes: Pupils equal, round and reactive to light. ENT: Erythematous oropharynx with no exudates or abscesses, no vesicles, Nasal congestion Neck: Normal inspection. Neck supple. No lymph nodes noted. No crepitus CVS: Normal heart rate and rhythm. Pulses normal. Normal S1 and S2 Respiratory: No respiratory distress. Breath sounds normal. No Wheezing. No rales Abdomen: Soft and nontender. No rigidity. No distention. Skin: Skin warm and dry. Normal skin color. Normal skin turgor. Extremities: No lower extremity edema. No Lacerations. No Rash Neuro: Oriented X 3. No motor deficit. No sensory deficit. Moving all extremities. No slurred speech. CN 2 through 12 grossly intact Psych: calm, cooperative, normal affect Course Course Course Narrative: -for symptomatic relief, patient receiving p.o. dexamethasone, viscous lidocaine and ibuprofen. Medications Administered Discontinued Medications Generic Name Dose Route Start Last Admin Trade Name Steveq PRN Reason Stop Dose Admin Dexamethasone Sodium Phosphate 6 mg 08/11/23 05:39 08/11/23 05:54 Dexamethasone Sod Phosphate 4 Mg/Ml Vial IVPUSH 08/11/23 05:40 6 mg ONCE ONE Administration Ibuprofen 600 mg 08/11/23 05:41 08/11/23 05:53 Ibuprofen 600 Mg Tablet PO 08/11/23 05:42 600 mg ONCE ONE Administration Lidocaine HCl 15 ml 08/11/23 05:39 08/11/23 05:53 Lidocaine Hcl Viscous 2 % 15 Ml Solution MUCOUS MEM 08/11/23 05:40 15 ml ONCE ONE Administration Medical Decision Making Medical Decision Making MDM Narrative: -my interpretation of labs: Patient tested negative for COVID a influenza -rapid strep test pending -patient's strep test negative, patient likely has viral pharyngitis. Differential Diagnosis Differential Diagnoses: The differential diagnosis associated with the presentation includes (Viral pharyngitis, strep throat, COVID, influenza) Lab Data MDM Lab Attestation statement: I reviewed the patient's lab results. Labs: Lab Results 08/11/23 08/11/23 Range/Units 04:52 05:48 COVID-19 (MAG[facility]) Negative (Negative) COVID-19 Clin Com See Note Influenza Type A ([facility]) Negative (Negative) Influenza Type B (AL[facility]) Negative (Negative) Influenza A & B Note See Note S. pyogenes GrpA [facility]LEY Negative (Negative) Discharge Plan Discharge Clinical Impression: Acute viral pharyngitis Patient Disposition: Home, Self-Care Instructions: Pharyngitis (ED) Additional Instructions: Please follow-up with your primary care physician tomorrow. If you have any worsening or new symptoms, please return to the emergency room or call 911 Prescriptions: New ibuprofen 600 mg tablet 600 mg PO Q6H PRN (Reason: fever or pain) Qty: 20 0RF No Action ondansetron HCl [Zofran] 4 mg tablet 4 mg PO Q6H PRN (Reason: nausea and vomiting) Qty: 7 0RF omeprazole 40 mg capsule,delayed release(DR/EC) 40 mg PO DAILY Qty: 14 0RF ondansetron 4 mg tablet,disintegrating 4 mg PO Q6H PRN (Reason: nausea and vomiting) Qty: 7 0RF ondansetron HCl 4 mg tablet 4 mg PO Q8H PRN (Reason: nausea and vomiting) 4 Days Qty: 12 0RF metronidazole 500 mg tablet 500 mg PO BID 7 Days Qty: 14 0RF acetaminophen [Tylenol Extra Strength] 500 mg tablet 500 mg PO Q6H PRN (Reason: fever or pain) Qty: 14 0RF naproxen 500 mg tablet 500 mg PO BID PRN (Reason: pain) 10 Days Qty: 20 0RF cyclobenzaprine 5 mg tablet 5 mg PO Q8H PRN (Reason: pain (scale score 7-10)) 5 Days Qty: 14 0RF lidocaine [Lidoderm] 5 % adhesive patch,medicated 1 patch topical DAILY MDD remove after 12 hours PRN (Reason: pain) Qty: 30 0RF Rx Instructions: leave on most painful area for up to 12 hrs acetaminophen [Tylenol Extra Strength] 500 mg tablet 500 mg PO Q6H PRN (Reason: pain or fever) Qty: 20 0RF lidocaine [Lidoderm] 5 % adhesive patch,medicated 1 patch topical DAILY MDD remove after 12 hours PRN (Reason: pain) Qty: 30 0RF Rx Instructions: leave on most painful area for up to 12 hrs naproxen 500 mg tablet 500 mg PO BID PRN (Reason: pain) 10 Days Qty: 20 0RF ibuprofen 800 mg tablet 800 mg PO Q8H PRN (Reason: pain) Qty: 14 0RF acetaminophen [Tylenol Extra Strength] 500 mg tablet 1,000 mg PO QID PRN (Reason: fever or pain) Qty: 14 0RF pyridoxine (vitamin B6) 25 mg tablet 25 mg PO TID 30 Days Qty: 90 0RF cimetidine 800 mg tablet 800 mg PO BID Qty: 60 0RF Rx Instructions: administer with meals metoclopramide HCl [Reglan] 10 mg tablet 10 mg PO Q6H PRN (Reason: nausea and vomiting) Qty: 20 0RF cefuroxime axetil 250 mg tablet 250 mg PO BID 7 Days Qty: 14 0RF ondansetron 4 mg tablet,disintegrating 4 mg PO Q6-8H PRN (Reason: nausea and vomiting) Qty: 10 0RF cephalexin 500 mg capsule 500 mg PO TID 7 Days Qty: 21 0RF
[2023-08-11] MEDS: Lidocaine HCl Viscous 2 % 15 ML SOLUTION MUCOUS MEM (05:53)
[2023-08-11] MEDS: Ibuprofen 600 MG TABLET PO (05:53)
[2023-08-11] MEDS: dexAMETHasone sod phosphate 4 MG/ML VIAL 6 MG IVPUSH (05:54)
[2023-08-11 06:02] LABS: IDNOW Serial# 6674DD1D; Strep A Nucleic Acid Negative (Negative)
--- NOTE | 2023-08-11 06:06 | PC.NURSE ---
Pt AOx3. ambulated into room with a steady gait, pt reporting a 8/10 sore throat with chills, runny nose, productive cough. Pt denies N/V/D/SOB/CP, pt warm to touch. Pt has been swabbed and sent to lab. Pt is calm and cooperative, pt aware of plan.
== END 2023-08-11 06:43 | disposition home or self-care (01) ==
PROVIDERS: Emergency Provider Emergency Medicine
DX: B34.9 Viral infection, unspecified (principal); J02.9 Acute pharyngitis, unspecified; Z11.52 Encounter for screening for COVID-19
CPT/HCPCS: 87502; 87635; 87651; 96374; 99284; J1100

== ENCOUNTER 2023-09-23 01:55 | Emergency (ER) | payer OTHER, SELFPAY ==
[2023-09-23 01:57] VITALS: BP 103/56; PULSE 88; RESP 16; TEMP 36.4; O2SAT 97; BMI 28.5
[2023-09-23 02:48] LABS: Influenza A PCR NEGATIVE (Negative); Influenza B PCR NEGATIVE (Negative); Resp Syncy Virus RNA Qual PCR NEGATIVE (Negative); SARS COV2 PCR INHOUSE NEGATIVE (Negative)
--- NOTE | 2023-09-23 04:29 | ED_ITS ---
HPI - URI/Sore Throat General Chief Complaint: Upper Respiratory Symptoms Stated Complaint: cold symptoms, asthma Time Seen by Provider: 09/23/23 03:55 Source: patient Mode of arrival: ambulatory History of Present Illness HPI Narrative: 23-year-old female with cough and sore throat for 2 days but denies any fevers or chills. Related Data Previous Rx's Medication Instructions Recorded omeprazole 40 mg capsule,delayed 40 mg PO DAILY #14 caps 07/23/20 release ondansetron HCl 4 mg tablet 4 mg PO Q6H PRN nausea and 07/23/20 (Zofran) vomiting #7 tabs ondansetron 4 mg disintegrating 4 mg PO Q6H PRN nausea and 11/04/21 tablet vomiting #7 tabs acetaminophen 500 mg tablet 500 mg PO Q6H PRN pain or fever 01/03/22 (Tylenol Extra Strength) #20 tabs lidocaine 5 % topical patch 1 patch topical DAILY PRN pain #30 01/03/22 (Lidoderm) ea naproxen 500 mg tablet 500 mg PO BID PRN pain 10 days #20 01/03/22 tabs ondansetron HCl 4 mg tablet 4 mg PO Q8H PRN nausea and 01/18/22 vomiting 4 days #12 tabs metronidazole 500 mg tablet 500 mg PO BID 7 days #14 tabs 06/22/22 acetaminophen 500 mg tablet 500 mg PO Q6H PRN fever or pain 08/04/22 (Tylenol Extra Strength) #14 tabs cyclobenzaprine 5 mg tablet 5 mg PO Q8H PRN pain (scale score 08/04/22 7-10) 5 days #14 tabs lidocaine 5 % topical patch 1 patch topical DAILY PRN pain #30 08/04/22 (Lidoderm) ea naproxen 500 mg tablet 500 mg PO BID PRN pain 10 days #20 08/04/22 tabs acetaminophen 500 mg tablet 1,000 mg (2 x 500 mg) PO QID PRN 08/24/22 (Tylenol Extra Strength) fever or pain #14 tabs ibuprofen 800 mg tablet 800 mg PO Q8H PRN pain #14 tabs 08/24/22 pyridoxine (vitamin B6) 25 mg 25 mg PO TID 30 days #90 tabs 11/18/22 tablet cimetidine 800 mg tablet 800 mg PO BID #60 tabs 01/02/23 metoclopramide HCl 10 mg tablet 10 mg PO Q6H PRN nausea and 01/02/23 (Reglan) vomiting #20 tabs cephalexin 500 mg capsule 500 mg PO TID 7 days #21 caps 01/28/23 cefuroxime axetil 250 mg tablet 250 mg PO BID 7 days #14 tabs 06/22/23 ondansetron 4 mg disintegrating 4 mg PO Q6-8H PRN nausea and 06/22/23 tablet vomiting #10 tabs ibuprofen 600 mg tablet 600 mg PO Q6H PRN fever or pain 08/11/23 #20 tabs Allergies Allergy/AdvReac Type Severity Reaction Status Date / Time No Known Allergies Allergy Verified 06/22/23 04:19 Review of Systems Review of Systems: Pertinent positives and negatives as stated in [facility] Past Medical History Source: nursing notes reviewed Medical History Syncope Asthma Social History Social History Alcohol intake: never Smoked in Last 30 Days: No Use of substances other than those prescribed or required for medical reasons: Yes Substance Use Type: Marijuana Substance Use Frequency: Occasionally Advance Directives: No Advance Directives Information Provided: No Patient : No Physical Exam Vital Signs: Vital Signs: Last Vital Signs Temp 97.6 F 09/23/23 01:57 Pulse 88 09/23/23 01:57 Resp 16 09/23/23 01:57 BP 103/56 L 09/23/23 01:57 Pulse Ox 98 09/23/23 04:39 O2 Del Method Room Air 09/23/23 04:39 BMI result Body Mass Index 28.5 VITAL SIGNS: Reviewed. GENERAL: Well developed, well nourished, in no acute distress. HEAD: Normocephalic/atraumatic EYES: PERRLA, EOMI EARS: Ext canals without abnormality, TMs non-bulging and non-erythematous NOSE: Nares patent bilateral OROPHARYNX: no oral lesions noted, posterior pharynx clear and non-erythematous without noted tonsillar enlargement/erythema/exudates NECK: Supple, no adenopathy LUNGS: Normal breath sounds. No adventitious sounds or accessory muscle use. SpO2<98> CARDIOVASCULAR: Regular rate and rhythm without noted murmurs ABDOMEN: Soft, non-tender, non-distended with bowel sounds. MUSCULOSKELETAL: No tenderness, deformities, or effusions noted on gross inspe ction. EXTREMITIES: No cyanosis, clubbing or edema. SKIN: Inspection of the skin reveals no rashes NEUROLOGIC: Alert and oriented x 4. Strength and sensation to light touch were grossly intact x 4. Medications Administered Discontinued Medications Generic Name Dose Route Start Last Admin Trade Name Freq PRN Reason Stop Dose Admin Benzonatate 200 mg 09/23/23 04:30 09/23/23 04:35 Benzonatate 100 Mg Capsule PO 09/23/23 04:31 200 mg ONCE ONE Administration Medical Decision Making Medical Decision Making MDM Narrative: 23-year-old female with history and clinical presentation, DDX: Viral syndrome, will rule out COVID/RSV/influenza. Patient received Tessalon. All viral testing was negative, patient has no clinical findings of acute asthma exacerbation. She is discharged Differential Diagnosis Differential Diagnoses: The differential diagnosis associated with the presentation includes See the discussion above Admission/Observation Consideration of admission/observation: Escalation of care including admission/observation considered Please see the discussion above Lab Data Labs: Lab Results 09/23/23 Range/Units 02:05 Influenza Type A (PCR) NEGATIVE (Negative) Influenza Type B (PCR) NEGATIVE (Negative) RSV RNA Qual (PCR) NEGATIVE (Negative) SARS-CoV-2 RNA (RT-PCR) NEGATIVE (Negative) External Record Review External record reviewed: Outpatient record and Prior outpatient labs Discharge Plan Discharge Clinical Impression: Viral syndrome Patient Disposition: Home, Self-Care Instructions: Viral Syndrome (ED) Additional Instructions: 1. Recommend [id number] Tylenol/ibuprofen as needed for body aches and temperatures greater than 100.4. 2. Recommend retesting for COVID-19 at your discretion in the next 2-3 days. 3. Recommend ubed-rba-sibcnea cough medication. You have received the 1st dose here in the emergency room. 4. Follow-up with primary care provider Sunday morning. Return to the ER for any worsening symptoms. Prescriptions: No Action ondansetron HCl [Zofran] 4 mg tablet 4 mg PO Q6H PRN (Reason: nausea and vomiting) Qty: 7 0RF omeprazole 40 mg capsule,delayed release(DR/EC) 40 mg PO DAILY Qty: 14 0RF ondansetron 4 mg tablet,disintegrating 4 mg PO Q6H PRN (Reason: nausea and vomiting) Qty: 7 0RF ondansetron HCl 4 mg tablet 4 mg PO Q8H PRN (Reason: nausea and vomiting) 4 Days Qty: 12 0RF metronidazole 500 mg tablet 500 mg PO BID 7 Days Qty: 14 0RF acetaminophen [Tylenol Extra Strength] 500 mg tablet 500 mg PO Q6H PRN (Reason: fever or pain) Qty: 14 0RF naproxen 500 mg tablet 500 mg PO BID PRN (Reason: pain) 10 Days Qty: 20 0RF cyclobenzaprine 5 mg tablet 5 mg PO Q8H PRN (Reason: pain (scale score 7-10)) 5 Days Qty: 14 0RF lidocaine [Lidoderm] 5 % adhesive patch,medicated 1 patch topical DAILY MDD remove after 12 hours PRN (Reason: pain) Qty: 30 0RF Rx Instructions: leave on most painful area for up to 12 hrs acetaminophen [Tylenol Extra Strength] 500 mg tablet 500 mg PO Q6H PRN (Reason: pain or fever) Qty: 20 0RF lidocaine [Lidoderm] 5 % adhesive patch,medicated 1 patch topical DAILY MDD remove after 12 hours PRN (Reason: pain) Qty: 30 0RF Rx Instructions: leave on most painful area for up to 12 hrs naproxen 500 mg tablet 500 mg PO BID PRN (Reason: pain) 10 Days Qty: 20 0RF ibuprofen 800 mg tablet 800 mg PO Q8H PRN (Reason: pain) Qty: 14 0RF acetaminophen [Tylenol Extra Strength] 500 mg tablet 1,000 mg PO QID PRN (Reason: fever or pain) Qty: 14 0RF pyridoxine (vitamin B6) 25 mg tablet 25 mg PO TID 30 Days Qty: 90 0RF cimetidine 800 mg tablet 800 mg PO BID Qty: 60 0RF Rx Instructions: administer with meals metoclopramide HCl [Reglan] 10 mg tablet 10 mg PO Q6H PRN (Reason: nausea and vomiting) Qty: 20 0RF cefuroxime axetil 250 mg tablet 250 mg PO BID 7 Days Qty: 14 0RF ondansetron 4 mg tablet,disintegrating 4 mg PO Q6-8H PRN (Reason: nausea and vomiting) Qty: 10 0RF ibuprofen 600 mg tablet 600 mg PO Q6H PRN (Reason: fever or pain) Qty: 20 0RF cephalexin 500 mg capsule 500 mg PO TID 7 Days Qty: 21 0RF Interventions: ED Discharge Assessment Last Done: 09/23/23 04:40 Discharge Date/Time: 09/23/23 04:41
[2023-09-23] MEDS: Benzonatate 100 MG CAPSULE 200 MG PO (04:35)
[2023-09-23 04:39] VITALS: PULSE 72; O2SAT 98
== END 2023-09-23 04:41 | disposition home or self-care (01) ==
PROVIDERS: Emergency Provider Student in an Organized Health Care Education/Training Program
DX: B34.9 Viral infection, unspecified (principal); R05.9 Cough, unspecified; J02.9 Acute pharyngitis, unspecified; Z20.822 Contact with and (suspected) exposure to COVID-19; Z20.828 Contact with and (suspected) exposure to other viral communicable diseases; F12.90 Cannabis use, unspecified, uncomplicated
CPT/HCPCS: 0241U; 99283; 99284

== ENCOUNTER 2023-11-15 11:48 | Outpatient (REF) | payer MEDICAID, SELFPAY ==
[2023-11-15 12:09] LABS: Appearance Urine Clear; Glucose Urine UA Negative (Negative); Leukocyte Esterase Urine Negative (Negative); Nitrite Urine Negative (Negative); PH 5.5 (5.0-9.0); Specific Gravity - Urine 1.015 (1.005-1.025); Urine Blood Negative (Negative); Urine Ketones Negative (Negative); Urine Protein Negative (Neg-Trace)
[2023-11-15 12:15] LABS: Color Urine Yellow
[2023-11-15 12:27] LABS: Bacteria Urine None Seen (None Seen); Hyaline Casts Urine 0-2 /LPF (0-2); RBC Urine 0-2 /HPF (0-2); WBC Urine 0-5 /HPF (0-5)
== END 2023-11-15 11:49 | disposition home or self-care (01) ==
LOC: HO.HHCLNP 11:48
PROVIDERS: Visit Provider Internal Medicine Geriatric Medicine
DX: R30.0 Dysuria (principal); N39.0 Urinary tract infection, site not specified
CPT/HCPCS: 81001

== ENCOUNTER 2024-01-13 05:26 | Emergency (ER) | payer MEDICAID, SELFPAY ==
[2024-01-13 05:31] VITALS: BP 125/61; PULSE 93; RESP 16; TEMP 37.3; O2SAT 96
[2024-01-13 05:39] VITALS: BMI 27.4
[2024-01-13] MEDS: Ketorolac Tromethamine 15 MG/ML VIAL IVPUSH (06:11)
[2024-01-13] MEDS: diphenhydrAMINE HCL 50 MG/ML VIAL 25 MG IVPUSH (06:11)
[2024-01-13] MEDS: Metoclopramide HCl 10 MG/2 ML VIAL IVPUSH (06:11)
[2024-01-13] MEDS: 0.9 % Sodium Chloride 1,000 ML 999 ML IV (06:12)
[2024-01-13 06:16] LABS: Basophils Percent Auto 0.5 % (0-2); Eosinophils Absolute Auto 0.1 X10*3/uL (0.0-0.4); Eosinophils Percent Auto 1.6 % (0-4); Hematocrit 38.1 % (37.0-47.0); Hemoglobin 13.1 g/dl (12.0-16.0); Imm Gran Abs Auto 0.02 X10*3/uL (0.00-0.03); Imm Gran Pct Auto 0.3 % (0.0-0.4); Lymphocytes Absolute Auto 0.9 X10*3/uL (1.2-4.9); Lymphocytes Percent Auto 14.4 % (20-40); MANUAL DIFF FLAG NO; Mean Corpuscular HGB Conc 34.4 g/dl (31.0-35.0); Mean Corpuscular Hemoglobin 31.7 pg (27.0-33.0); Mean Corpuscular Volume 92.3 fL (80.0-98.0); Mean Platelet Volume 11.1 fL (9.4-12.3); Monocytes Absolute Auto 0.7 X10*3/uL (0.1-1.2); Monocytes Percent Auto 11.3 % (2-11); Neutrophils Absolute Auto 4.4 x10*3/uL (2.0-8.3); Neutrophils Percent Auto 71.9 % (45-73); Platelet Count 198 X10*3/uL (160-400); Red Blood Count 4.13 X10*6/uL (4.20-5.50); Red Cell Distribution Width 14.1 % (11.0-16.0); White Blood Count 6.2 X10*3/uL (4.8-10.8)
[2024-01-13 06:26] LABS: IDNOW Serial# 6674DD1D; Strep A Nucleic Acid Negative (Negative)
[2024-01-13 06:29] LABS: Influenza A PCR NEGATIVE (Negative); Influenza B PCR NEGATIVE (Negative); Resp Syncy Virus RNA Qual PCR NEGATIVE (Negative); SARS COV2 PCR INHOUSE NEGATIVE (Negative)
[2024-01-13 06:37] LABS: Alanine Aminotransferase 13 U/L (0-31); Albumin Level 4.4 g/dL (3.5-5.0); Alkaline Phosphatase 63 U/L (39-117); Anion Gap 13 (12-20); Aspartate Amino Transferase 15 U/L (5-31); Bilirubin Direct 0.3 mg/dL (0.0-0.5); Bilirubin Total 0.9 mg/dL (0.0-1.0); Blood Urea Nitrogen 9 mg/dL (9-16); Calcium 9.4 mg/dL (8.4-10.2); Carbon Dioxide 21 mmol/L (22-29); Chloride 108 mmol/L (96-108); Creatinine Clr Calc Pharmacy 102.3; Estimated Glomerular Filt Rate > 60; Glucose Random 96 mg/dL (60-115); HCG Quantitative < 2 mIU/mL; Lipase 14 U/L (8-78); Magnesium 1.9 mg/dL (1.6-2.6); Potassium 3.5 mmol/L (3.3-5.1); Sodium 138 mmol/L (135-145); Total Protein 7.6 g/dL (6.5-8.0)
--- NOTE | 2024-01-13 06:44 | ED_ITS ---
HPI - Nausea/Vomiting/Diarrhea General Chief complaint: Upper Respiratory Symptoms Stated complaint: vomiting, chills, warm. body aches Time Seen by Provider: 01/13/24 06:29 Source: patient and family History of Present Illness HPI Narrative: Marla is a 23 year old female presenting today for evaluation of sore thraot and body aches for 2 days. He is accompanied by her boyfriend who reports onset of two days ago. Patient says sister was recently diagnosed with strep throat, reports that she has contact with her 48 hours after starting antibiotics. Boyfriend reports his son was recently diagnosed with virus. Patient says symptoms first started with sore throat and bodyaches two days ago. Febrile episodes at home. Yesterday, developed nausea and vomiting. Decreased appetite. Vomiting is bilious and accompanied with diffuse, crampy abdominal pain. This morning she developed diarrhea, had one episode of watery diarrhea. MD elicited complaint: nausea, vomiting, diarrhea and abdominal pain (only when vomiting) Description of vomiting: bilious Description of diarrhea: watery Associated nausea: Yes Associated abdominal pain: Yes Location of pain: diffuse Radiation: periumbilical Severity: moderate Quality: cramping Exacerbating factors: vomiting Relieving factors: rest Context: sick contacts (boyfriend's son with virus, patient's sister with strep) Associated symptoms: fever/chills Related Data Previous Rx's Medication Instructions Recorded omeprazole 40 mg capsule,delayed 40 mg PO DAILY #14 caps 07/23/20 release ondansetron HCl 4 mg tablet 4 mg PO Q6H PRN nausea and 07/23/20 (Zofran) vomiting #7 tabs ondansetron 4 mg disintegrating 4 mg PO Q6H PRN nausea and 11/04/21 tablet vomiting #7 tabs acetaminophen 500 mg tablet 500 mg PO Q6H PRN pain or fever 01/03/22 (Tylenol Extra Strength) #20 tabs lidocaine 5 % topical patch 1 patch topical DAILY PRN pain #30 01/03/22 (Lidoderm) ea naproxen 500 mg tablet 500 mg PO BID PRN pain 10 days #20 01/03/22 tabs ondansetron HCl 4 mg tablet 4 mg PO Q8H PRN nausea and 01/18/22 vomiting 4 days #12 tabs metronidazole 500 mg tablet 500 mg PO BID 7 days #14 tabs 06/22/22 acetaminophen 500 mg tablet 500 mg PO Q6H PRN fever or pain 08/04/22 (Tylenol Extra Strength) #14 tabs cyclobenzaprine 5 mg tablet 5 mg PO Q8H PRN pain (scale score 08/04/22 7-10) 5 days #14 tabs lidocaine 5 % topical patch 1 patch topical DAILY PRN pain #30 08/04/22 (Lidoderm) ea naproxen 500 mg tablet 500 mg PO BID PRN pain 10 days #20 08/04/22 tabs acetaminophen 500 mg tablet 1,000 mg (2 x 500 mg) PO QID PRN 08/24/22 (Tylenol Extra Strength) fever or pain #14 tabs ibuprofen 800 mg tablet 800 mg PO Q8H PRN pain #14 tabs 08/24/22 pyridoxine (vitamin B6) 25 mg 25 mg PO TID 30 days #90 tabs 11/18/22 tablet cimetidine 800 mg tablet 800 mg PO BID #60 tabs 01/02/23 metoclopramide HCl 10 mg tablet 10 mg PO Q6H PRN nausea and 01/02/23 (Reglan) vomiting #20 tabs cephalexin 500 mg capsule 500 mg PO TID 7 days #21 caps 01/28/23 cefuroxime axetil 250 mg tablet 250 mg PO BID 7 days #14 tabs 06/22/23 ondansetron 4 mg disintegrating 4 mg PO Q6-8H PRN nausea and 06/22/23 tablet vomiting #10 tabs ibuprofen 600 mg tablet 600 mg PO Q6H PRN fever or pain 08/11/23 #20 tabs ondansetron 4 mg disintegrating 4 mg PO DAILY PRN nausea and 01/13/24 tablet vomiting #7 tabs Allergies Allergy/AdvReac Type Severity Reaction Status Date / Time No Known Allergies Allergy Verified 01/13/24 05:39 Review of Systems 2 Review of Systems: Yes all other systems are reviewed and are negative Gastrointestinal: Gastrointestinal: Reports nausea PMFSH Past Medical History Medical History Syncope Asthma Social History Social History Alcohol intake: never Smoked in Last 30 Days: No Use of substances other than those prescribed or required for medical reasons: Yes Substance Use Type: Marijuana Advance Directives: No Advance Directives Information Provided: No Patient : No Physical Exam 2 Vital Signs: Vital Signs: Last Vital Signs Temp 99.2 F 01/13/24 05:31 Pulse 93 01/13/24 05:31 Resp 16 01/13/24 05:31 BP 125/61 01/13/24 05:31 Pulse Ox 96 01/13/24 05:31 O2 Del Method Room Air 01/13/24 05:31 BMI result Body Mass Index 27.4 Appearance: Alert. Oriented X3. No acute distress. Tired, Head: normocephalic, atraumatic. ENT: Pharynx normal. No tonsillar swelling or exudate. Thin veil of clear mucus overlaying oropharynx. Neck: Normal inspection. Neck supple. No lymphadenopathy. CVS: Normal heart rate and rhythm. Pulses normal. Respiratory: No respiratory distress. Breath sounds normal. Abdomen: Soft and nontender. +BS x4. Diffuse hyperactive bowel sounds. Skin: Skin warm and dry. Normal skin color. Normal skin turgor. No rashes. Extremities: No lower extremity edema. No joint swelling. Neuro/psych: Oriented X 3. No motor deficit. Normal speech and cognition. Medications Administered Discontinued Medications Generic Name Dose Route Start Last Admin Trade Name Freq PRN Reason Stop Dose Admin Diphenhydramine HCl 25 mg 01/13/24 05:51 01/13/24 06:11 Diphenhydramine Hcl 50 Mg/Ml Vial IVPUSH 01/13/24 05:52 25 mg ONCE ONE Administration Sodium Chloride 1,000 mls @ 999 mls/hr 01/13/24 06:00 01/13/24 06:12 Ns IV 01/13/24 07:00 999 mls/hr .Q1H1M MACEY Administration Ketorolac Tromethamine 15 mg 01/13/24 05:51 01/13/24 06:11 Ketorolac Tromethamine 15 Mg/Ml Vial IVPUSH 01/13/24 05:52 15 mg ONCE ONE Administration Metoclopramide HCl 10 mg 01/13/24 05:51 01/13/24 06:11 Metoclopramide Hcl 10 Mg/2 Ml Vial IVPUSH 01/13/24 05:52 10 mg ONCE ONE Administration Medical Decision Making Medical Decision Making MDM Narrative: Marla is a 23 year old female presenting today for evaluation of body aches and sore throat for 2 days. Sick contacts include sister with strep throat and son with viral syndrome.Patient denies prior history of strep or mono. febrile episodes at home, nonfebrile here today. Patient was treated with fluids, benadryl, ketorolac, and reglan today. She reports improvement and is eager to go home. On physical exam, she is tired and physical exam is benign with the exceptino of hyperactive bowel sounds. Low suspicion for strep considering negative rapid, no erythema, no exudates, and no tonsillar swelling. Respiratory panel today is Flu, COVID, and RSV negative. Considering acute onset of nausea/vomiting/diarrhea, presentation is most likely due to acute viral syndrome. Differential Diagnosis Viral syndrome, gastritis, strep, mononucleosis, food poisoning Lab Data [facility] Lab Attestation statement: I reviewed the patient's lab results. Labs are reassuring with presentation of acute viral syndrome. 01/13/24 05:59 01/13/24 05:59 Labs: Lab Results 01/13/24 01/13/24 Range/Units 05:45 05:59 WBC 6.2 (4.8-10.8) X10*3/uL RBC 4.13 L (4.20-5.50) X10*6/uL Hgb 13.1 (12.0-16.0) g/dl Hct 38.1 (37.0-47.0) % MCV 92.3 (80.0-98.0) fL MCH 31.7 (27.0-33.0) pg MCHC 34.4 (31.0-35.0) g/dl RDW 14.1 (11.0-16.0) % Plt Count 198 (160-400) X10*3/uL MPV 11.1 (9.4-12.3) fL Immature Gran % (Auto) 0.3 (0.0-0.4) % Neut % (Auto) 71.9 (45-73) % Lymph % (Auto) 14.4 L (20-40) % [place] % (Auto) 11.3 H (2-11) % Eos % (Auto) 1.6 (0-4) % Baso % (Auto) 0.5 (0-2) % Lymph # (Auto) 0.9 L (1.2-4.9) X10*3/uL [place] # (Auto) 0.7 (0.1-1.2) X10*3/uL Eos # (Auto) 0.1 (0.0-0.4) X10*3/uL Baso # (Auto) 0.0 (0.0-0.2) X10*3/uL Abs Immat Gran (auto) 0.02 (0.00-0.03) X10*3/uL Absolute Neuts (auto) 4.4 (2.0-8.3) x10*3/uL Absolute Nucleated RBC 0.000 (0.0-0.012) X10*3/uL Nucleated RBC % (auto) 0.0 (0.0-0.2) /100WBC Sodium 138 (135-145) mmol/L Potassium 3.5 (3.3-5.1) mmol/L Chloride 108 (96-108) mmol/L Carbon Dioxide 21 L (22-29) mmol/L Anion Gap 13 (12-20) BUN 9 (9-16) mg/dL Creatinine 0.78 (0.5-1.4) mg/dL Estim Creat Clear Calc 102.3 Estimated GFR > 60 Random Glucose 96 (60-115) mg/dL Calcium 9.4 (8.4-10.2) mg/dL Magnesium 1.9 (1.6-2.6) mg/dL Total Bilirubin 0.9 (0.0-1.0) mg/dL Direct Bilirubin 0.3 (0.0-0.5) mg/dL AST 15 (5-31) U/L ALT 13 (0-31) U/L Alkaline Phosphatase 63 (39-117) U/L Total Protein 7.6 (6.5-8.0) g/dL Albumin 4.4 (3.5-5.0) g/dL Lipase 14 (8-78) U/L Beta HCG, Quant < 2 mIU/mL Influenza Type A (PCR) NEGATIVE (Negative) Influenza Type B (PCR) NEGATIVE (Negative) RSV RNA Qual (PCR) NEGATIVE (Negative) SARS-CoV-2 RNA (RT-PCR) NEGATIVE (Negative) S. pyogenes Grp[place]LEY Negative (Negative) Prescription Management I considered prescription management with: Antibiotic Strep negative and low suspicion considering physical exam not consistent with strep pharyngitis Discharge Plan Discharge Clinical Impression: Acute viral syndrome Patient Disposition: Home, Self-Care Instructions: Viral Syndrome (ED) Additional Instructions: Your lab workup today was unremarkable You tested negative for COVID, Flu, RSV and Strep throat Your symptoms are most likely due to a viral illness Treatment is supportive care, symptoms usually resolve on their own in 48-72 hours. Recommend rest and plenty of oral hydration. Stick to a bland diet like soup and toast while you are not feeling well. Take the prescribed medication as needed for nausea. Recommend over the counter Pepto Bismol or Imodium for upset stomach and diarrhea. Follow up with your doctor as needed. If you develop new or worsening symptoms call 911 or come back to the ER for further evaluation. Prescriptions: New ondansetron 4 mg tablet,disintegrating 4 mg PO DAILY PRN (Reason: nausea and vomiting) Qty: 7 0RF No Action ondansetron HCl [Zofran] 4 mg tablet 4 mg PO Q6H PRN (Reason: nausea and vomiting) Qty: 7 0RF omeprazole 40 mg capsule,delayed release(DR/EC) 40 mg PO DAILY Qty: 14 0RF ondansetron 4 mg tablet,disintegrating 4 mg PO Q6H PRN (Reason: nausea and vomiting) Qty: 7 0RF ondansetron HCl 4 mg tablet 4 mg PO Q8H PRN (Reason: nausea and vomiting) 4 Days Qty: 12 0RF metronidazole 500 mg tablet 500 mg PO BID 7 Days Qty: 14 0RF acetaminophen [Tylenol Extra Strength] 500 mg tablet 500 mg PO Q6H PRN (Reason: fever or pain) Qty: 14 0RF naproxen 500 mg tablet 500 mg PO BID PRN (Reason: pain) 10 Days Qty: 20 0RF cyclobenzaprine 5 mg tablet 5 mg PO Q8H PRN (Reason: pain (scale score 7-10)) 5 Days Qty: 14 0RF lidocaine [Lidoderm] 5 % adhesive patch,medicated 1 patch topical DAILY MDD remove after 12 hours PRN (Reason: pain) Qty: 30 0RF Rx Instructions: leave on most painful area for up to 12 hrs acetaminophen [Tylenol Extra Strength] 500 mg tablet 500 mg PO Q6H PRN (Reason: pain or fever) Qty: 20 0RF lidocaine [Lidoderm] 5 % adhesive patch,medicated 1 patch topical DAILY MDD remove after 12 hours PRN (Reason: pain) Qty: 30 0RF Rx Instructions: leave on most painful area for up to 12 hrs naproxen 500 mg tablet 500 mg PO BID PRN (Reason: pain) 10 Days Qty: 20 0RF ibuprofen 800 mg tablet 800 mg PO Q8H PRN (Reason: pain) Qty: 14 0RF acetaminophen [Tylenol Extra Strength] 500 mg tablet 1,000 mg PO QID PRN (Reason: fever or pain) Qty: 14 0RF pyridoxine (vitamin B6) 25 mg tablet 25 mg PO TID 30 Days Qty: 90 0RF cimetidine 800 mg tablet 800 mg PO BID Qty: 60 0RF Rx Instructions: administer with meals metoclopramide HCl [Reglan] 10 mg tablet 10 mg PO Q6H PRN (Reason: nausea and vomiting) Qty: 20 0RF cefuroxime axetil 250 mg tablet 250 mg PO BID 7 Days Qty: 14 0RF ondansetron 4 mg tablet,disintegrating 4 mg PO Q6-8H PRN (Reason: nausea and vomiting) Qty: 10 0RF ibuprofen 600 mg tablet 600 mg PO Q6H PRN (Reason: fever or pain) Qty: 20 0RF cephalexin 500 mg capsule 500 mg PO TID 7 Days Qty: 21 0RF
[2024-01-13 07:12] VITALS: BP 118/58; PULSE 78; RESP 16; TEMP 36.9; O2SAT 97
== END 2024-01-13 07:13 | disposition home or self-care (01) ==
PROVIDERS: Emergency Medicine; Emergency Provider Student in an Organized Health Care Education/Training Program
DX: B34.9 Viral infection, unspecified (principal); J45.909 Unspecified asthma, uncomplicated
CPT/HCPCS: 0241U; 36415; 80048; 80076; 83690; 83735; 84702; 85025; 87651; 96361; 96374; 96375; 99284; J1200; J1885; J2765

== ENCOUNTER 2024-10-04 20:46 | Emergency (ER) | payer MEDICAID, SELFPAY ==
[2024-10-04 21:08] VITALS: BP 106/44; PULSE 86; RESP 14; TEMP 36.5; O2SAT 100; BMI 26.0
[2024-10-04 21:33] LABS: MANUAL DIFF FLAG NO
[2024-10-04 21:38] LABS: Basophils Percent Auto 0.2 % (0-2); Eosinophils Absolute Auto 0.1 X10*3/uL (0.0-0.4); Eosinophils Percent Auto 0.9 % (0-4); Hematocrit 33.3 % (37.0-47.0); Hemoglobin 11.8 g/dl (12.0-16.0); Imm Gran Abs Auto 0.04 X10*3/uL (0.00-0.03); Imm Gran Pct Auto 0.3 % (0.0-0.4); Lymphocytes Absolute Auto 2.6 X10*3/uL (1.2-4.9); Mean Corpuscular HGB Conc 35.4 g/dl (31.0-35.0); Mean Corpuscular Hemoglobin 33.6 pg (27.0-33.0); Mean Corpuscular Volume 94.9 fL (80.0-98.0); Mean Platelet Volume 10.5 fL (9.4-12.3); Monocytes Absolute Auto 0.8 X10*3/uL (0.1-1.2); Monocytes Percent Auto 5.8 % (2-11); Neutrophils Absolute Auto 9.4 x10*3/uL (2.0-8.3); Neutrophils Percent Auto 72.8 % (45-73); Platelet Count 272 X10*3/uL (160-400); Red Blood Count 3.51 X10*6/uL (4.20-5.50); Red Cell Distribution Width 13.1 % (11.0-16.0); White Blood Count 12.9 X10*3/uL (4.8-10.8)
[2024-10-04 21:42] VITALS: BP 108/49; PULSE 69; RESP 16; TEMP 36.2; O2SAT 98
[2024-10-04 21:58] LABS: Alanine Aminotransferase 15 U/L (0-31); Alkaline Phosphatase 45 U/L (39-117); Anion Gap 10 (12-20); Aspartate Amino Transferase 20 U/L (5-31); Bilirubin Total 0.4 mg/dL (0.0-1.0); Blood Urea Nitrogen 7 mg/dL (9-16); Calcium 9.1 mg/dL (8.4-10.2); Carbon Dioxide 22 mmol/L (22-29); Chloride 109 mmol/L (96-108); Creatinine Clr Calc Pharmacy 120.5; Estimated Glomerular Filt Rate > 60; Glucose Random 106 mg/dL (60-115); Potassium 3.8 mmol/L (3.3-5.1); Sodium 137 mmol/L (135-145); Total Protein 6.9 g/dL (6.5-8.0)
[2024-10-04 22:25] LABS: HCG Quantitative 138823 mIU/mL
--- NOTE | 2024-10-04 23:09 | ED.GENADULT ---
HPI - General Adult General Chief complaint: General Medical Stated complaint: Abdominal pain, constipation Time Seen by Provider: 10/04/24 22:07 Source: patient, RN notes reviewed and old records reviewed Mode of arrival: ambulatory Limitations: no limitations History of Present Illness ED Provider: Demetrius DELACRUZ narrative: 24-year-old female with past medical history significant for constipation, approximately 10 weeks presents for evaluation of constipation. Patient reports that she has not had a large bowel movement in the last 2 weeks. She took MiraLax at home without any improvement or bowel movement. She reports some rectal pain but denies any rectal bleeding. She reports a history of hemorrhoids. Her last menstrual period was 07/25/2024. She is due to follow up with with Ob in 5 days She does have minimal abdominal pain but mostly rectal pain. Denies any history abdominal surgeries Related Data Previous Rx's ?Medication ?Instructions ?Recorded omeprazole 40 mg capsule,delayed 40 mg PO DAILY #14 caps 07/23/20 release ondansetron HCl 4 mg tablet 4 mg PO Q6H PRN nausea and 07/23/20 (Zofran) vomiting #7 tabs ondansetron 4 mg disintegrating 4 mg PO Q6H PRN nausea and 11/04/21 tablet vomiting #7 tabs acetaminophen 500 mg tablet 500 mg PO Q6H PRN pain or fever 01/03/22 (Tylenol Extra Strength) #20 tabs lidocaine 5 % topical patch 1 patch topical DAILY PRN pain #30 01/03/22 (Lidoderm) ea naproxen 500 mg tablet 500 mg PO BID PRN pain 10 days #20 01/03/22 tabs ondansetron HCl 4 mg tablet 4 mg PO Q8H PRN nausea and 01/18/22 vomiting 4 days #12 tabs metronidazole 500 mg tablet 500 mg PO BID 7 days #14 tabs 06/22/22 acetaminophen 500 mg tablet 500 mg PO Q6H PRN fever or pain 08/04/22 (Tylenol Extra Strength) #14 tabs cyclobenzaprine 5 mg tablet 5 mg PO Q8H PRN pain (scale score 08/04/22 7-10) 5 days #14 tabs lidocaine 5 % topical patch 1 patch topical DAILY PRN pain #30 08/04/22 (Lidoderm) ea naproxen 500 mg tablet 500 mg PO BID PRN pain 10 days #20 08/04/22 tabs acetaminophen 500 mg tablet 1,000 mg (2 x 500 mg) PO QID PRN 08/24/22 (Tylenol Extra Strength) fever or pain #14 tabs ibuprofen 800 mg tablet 800 mg PO Q8H PRN pain #14 tabs 08/24/22 pyridoxine (vitamin B6) 25 mg 25 mg PO TID 30 days #90 tabs 11/18/22 tablet cimetidine 800 mg tablet 800 mg PO BID #60 tabs 01/02/23 metoclopramide HCl 10 mg tablet 10 mg PO Q6H PRN nausea and 01/02/23 (Reglan) vomiting #20 tabs cephalexin 500 mg capsule 500 mg PO TID 7 days #21 caps 01/28/23 cefuroxime axetil 250 mg tablet 250 mg PO BID 7 days #14 tabs 06/22/23 ondansetron 4 mg disintegrating 4 mg PO Q6-8H PRN nausea and 06/22/23 tablet vomiting #10 tabs ibuprofen 600 mg tablet 600 mg PO Q6H PRN fever or pain 08/11/23 #20 tabs ondansetron 4 mg disintegrating 4 mg PO DAILY PRN nausea and 01/13/24 tablet vomiting #7 tabs Allergies Allergy/AdvReac Type Severity Reaction Status Date / Time No Known Allergies Allergy Verified 10/04/24 21:13 Review of Systems Constitutional: Constitutional: Denies body ache(s), Denies chills, Denies fever(s) and Denies headache(s) ENT: Denies vertigo, Denies dizziness and Denies headache(s) Cardiovascular: Cardiovascular: Denies chest pain and Denies dyspnea Respiratory: Respiratory: Denies cough and Denies dyspnea Gastrointestinal: Gastrointestinal: Reports abdominal pain, Denies hematochezia, Reports constipation, Denies diarrhea, Denies loose stools and Denies nausea Genitourinary: Genitourinary: Denies dysmenorrhea, Denies dysuria and Denies pelvic pain Musculoskeletal: Musculoskeletal: Denies back pain Integumentary/Breasts: Skin/Breast: Denies rash Neurologic: Denies vertigo, Denies dizziness and Denies headache(s) [facility] Past Medical History Medical History Syncope Asthma Social History Social History Alcohol intake: never Substance Use Type: Marijuana Advance Directives: No Advance Directives Information Provided: No Do you have a plan to hurt others: No Plan Physical Exam ED Vital Signs: Vital Signs - 24 hr 10/04/24 21:08 10/04/24 21:42 10/04/24 23:51 Temperature 97.7 F 97.2 F 98.0 F Pulse Rate 86 69 76 Respiratory Rate 14 16 16 Blood Pressure 106/44 L 108/49 L 96/55 L Pulse Oximetry 100 98 98 Oxygen Delivery Method Room Air Room Air Room Air BMI result Body Mass Index 26.0 Const General: healthy appearing, comfortable, no acute distress, alert and awake Nutritional Appearance: well nourished Orientation/consciousness: patient oriented x3 HENMT Head: Yes normocephalic and Yes atraumatic Eyes Eyelids: Yes eyelids normal Conjunctivae: conjunctivae normal Sclerae: sclerae normal Corneas: corneas normal Pupils: Equal, round and reactive pupils present EOM: EOMs intact bilaterally Neck Neck: Yes full ROM Resp Effort & Inspection: normal respiratory effort, able to speak in complete sentences and not labored GI Inspection: No distended Palpation (GI): Soft to palpation, not firm, nontender, no guarding and not rigid Rectal Exam - Female: deferred (Patient declined) Skin General skin exam: elasticity normal Neuro General: patient oriented x3 Cranial nerves: Yes Equal, round and reactive pupils present and Yes Bilaterally intact EOM present Cognition (Neuro): normal cognition Extrem Other: Moving all extremities well without any obvious deformities Course Reevaluation(s) Reevaluation #1: The patient reports that she went to the bathroom prior to receiving her enema and had a moderate size large stool ball past. She still warranted to have the MRI performed with the Bovie done Time: 23:16 Medications Administered Discontinued Medications Generic Name Dose Route Start Last Admin Trade Name Freq PRN Reason Stop Dose Admin Mineral Oil 133 ml 10/04/24 22:54 10/04/24 23:43 Mineral Oil Enema 133 Ml Enema ID 10/04/24 22:55 133 ml ONCE ONE Administration Medical Decision Making Medical Decision Making MDM Narrative: 24-year-old female presents for evaluation of rectal pain and constipation. She is , I do not feel that she is obstructive, so we will defer imaging at this time. I offered rectal examination and disimpaction attempted the patient declines. She would like to try a mineral oil enema, patient's labs are significant for a mild leukocytosis which could be related to her . I did order a urinalysis to evaluate for UTI. She has no pelvic pain vaginal bleeding or discharge, low suspicion for miscarriage or threatened . The patient has minimal bilateral pain, no sharp unilateral pain to suggest ectopic . I do not feel that an ultrasound is warranted at this time as there is a low suspicion for ectopic . Differential Diagnosis Differential Diagnoses: The differential diagnosis associated with the presentation includes Constipation Hemorrhoids Enteritis Lab Data 10/04/24 21:27 10/04/24 21:27 Labs: Lab Results 10/04/24 Range/Units 21:27 WBC 12.9 H (4.8-10.8) X10*3/uL RBC 3.51 L (4.20-5.50) X10*6/uL Hgb 11.8 L (12.0-16.0) g/dl Hct 33.3 L (37.0-47.0) % MCV 94.9 (80.0-98.0) fL MCH 33.6 H (27.0-33.0) pg MCHC 35.4 H (31.0-35.0) g/dl RDW 13.1 (11.0-16.0) % Plt Count 272 D (160-400) X10*3/uL MPV 10.5 (9.4-12.3) fL Immature Gran % (Auto) 0.3 (0.0-0.4) % Neut % (Auto) 72.8 (45-73) % Lymph % (Auto) 20.0 (20-40) % [place] % (Auto) 5.8 (2-11) % Eos % (Auto) 0.9 (0-4) % Baso % (Auto) 0.2 (0-2) % Lymph # (Auto) 2.6 (1.2-4.9) X10*3/uL [place] # (Auto) 0.8 (0.1-1.2) X10*3/uL Eos # (Auto) 0.1 (0.0-0.4) X10*3/uL Baso # (Auto) 0.0 (0.0-0.2) X10*3/uL Abs Immat Gran (auto) 0.04 H (0.00-0.03) X10*3/uL Absolute Neuts (auto) 9.4 H (2.0-8.3) x10*3/uL Absolute Nucleated RBC 0.000 (0.0-0.012) X10*3/uL Nucleated RBC % (auto) 0.0 (0.0-0.2) /100WBC Sodium 137 (135-145) mmol/L Potassium 3.8 (3.3-5.1) mmol/L Chloride 109 H (96-108) mmol/L Carbon Dioxide 22 (22-29) mmol/L Anion Gap 10 L (12-20) BUN 7 L (9-16) mg/dL Creatinine 0.64 (0.5-1.4) mg/dL Estim Creat Clear Calc 120.5 Estimated GFR > 60 Random Glucose 106 (60-115) mg/dL Calcium 9.1 (8.4-10.2) mg/dL Total Bilirubin 0.4 (0.0-1.0) mg/dL AST 20 (5-31) U/L ALT 15 (0-31) U/L Alkaline Phosphatase 45 (39-117) U/L Total Protein 6.9 (6.5-8.0) g/dL Albumin 4.0 (3.5-5.0) g/dL Beta HCG, Quant [id number] mIU/mL Discharge Plan Discharge Clinical Impression: , Constipation Patient Disposition: Home, Self-Care Instructions: Constipation (ED), Fleet Enema (ED), High Fiber Diet (ED) Additional Instructions: Drink lots of fluids. Increase fiber in your diet. I recommend taking MiraLax every night for the next 2 weeks. You may use magnesium citrate which is [id number] to help with constipation as well Follow-up with your primary doctor, return for new or worsening symptoms Prescriptions: No Action ondansetron HCl [Zofran] 4 mg tablet 4 mg PO Q6H PRN (Reason: nausea and vomiting) Qty: 7 0RF omeprazole 40 mg capsule,delayed release(DR/EC) 40 mg PO DAILY Qty: 14 0RF ondansetron 4 mg tablet,disintegrating 4 mg PO Q6H PRN (Reason: nausea and vomiting) Qty: 7 0RF ondansetron HCl 4 mg tablet 4 mg PO Q8H PRN (Reason: nausea and vomiting) 4 Days Qty: 12 0RF metronidazole 500 mg tablet 500 mg PO BID 7 Days Qty: 14 0RF acetaminophen [Tylenol Extra Strength] 500 mg tablet 500 mg PO Q6H PRN (Reason: fever or pain) Qty: 14 0RF naproxen 500 mg tablet 500 mg PO BID PRN (Reason: pain) 10 Days Qty: 20 0RF cyclobenzaprine 5 mg tablet 5 mg PO Q8H PRN (Reason: pain (scale score 7-10)) 5 Days Qty: 14 0RF lidocaine [Lidoderm] 5 % adhesive patch,medicated 1 patch topical DAILY MDD remove after 12 hours PRN (Reason: pain) Qty: 30 0RF Rx Instructions: leave on most painful area for up to 12 hrs acetaminophen [Tylenol Extra Strength] 500 mg tablet 500 mg PO Q6H PRN (Reason: pain or fever) Qty: 20 0RF lidocaine [Lidoderm] 5 % adhesive patch,medicated 1 patch topical DAILY MDD remove after 12 hours PRN (Reason: pain) Qty: 30 0RF Rx Instructions: leave on most painful area for up to 12 hrs naproxen 500 mg tablet 500 mg PO BID PRN (Reason: pain) 10 Days Qty: 20 0RF ibuprofen 800 mg tablet 800 mg PO Q8H PRN (Reason: pain) Qty: 14 0RF acetaminophen [Tylenol Extra Strength] 500 mg tablet 1,000 mg PO QID PRN (Reason: fever or pain) Qty: 14 0RF pyridoxine (vitamin B6) 25 mg tablet 25 mg PO TID 30 Days Qty: 90 0RF cimetidine 800 mg tablet 800 mg PO BID Qty: 60 0RF Rx Instructions: administer with meals metoclopramide HCl [Reglan] 10 mg tablet 10 mg PO Q6H PRN (Reason: nausea and vomiting) Qty: 20 0RF cefuroxime axetil 250 mg tablet 250 mg PO BID 7 Days Qty: 14 0RF ondansetron 4 mg tablet,disintegrating 4 mg PO Q6-8H PRN (Reason: nausea and vomiting) Qty: 10 0RF ibuprofen 600 mg tablet 600 mg PO Q6H PRN (Reason: fever or pain) Qty: 20 0RF ondansetron 4 mg tablet,disintegrating 4 mg PO DAILY PRN (Reason: nausea and vomiting) Qty: 7 0RF cephalexin 500 mg capsule 500 mg PO TID 7 Days Qty: 21 0RF Print Language: Welsh
[2024-10-04] MEDS: Mineral OiL enema 133 ML ENEMA PR (23:43)
[2024-10-04 23:51] VITALS: BP 96/55; PULSE 76; RESP 16; TEMP 36.7; O2SAT 98
[2024-10-05 00:13] VITALS: BP 96/55; PULSE 76; RESP 16; TEMP 36.7; O2SAT 98
== END 2024-10-05 00:14 | disposition home or self-care (01) ==
PROVIDERS: Emergency Provider Emergency Medicine
DX: O26.891 Other specified pregnancy related conditions, first trimester (principal); K59.00 Constipation, unspecified; Z3A.10 10 weeks gestation of pregnancy
CPT/HCPCS: 36415; 80053; 84702; 85025; 99284

== ENCOUNTER 2024-11-10 14:59 | Outpatient (REF) | payer MEDICAID, SELFPAY ==
[2024-11-10 16:27] LABS: MANUAL DIFF FLAG NO
[2024-11-10 16:37] LABS: Basophils Percent Auto 0.3 % (0-2); Eosinophils Absolute Auto 0.1 X10*3/uL (0.0-0.4); Eosinophils Percent Auto 0.7 % (0-4); Hematocrit 36.1 % (37.0-47.0); Hemoglobin 12.4 g/dl (12.0-16.0); Imm Gran Abs Auto 0.02 X10*3/uL (0.00-0.03); Imm Gran Pct Auto 0.2 % (0.0-0.4); Lymphocytes Absolute Auto 2.1 X10*3/uL (1.2-4.9); Lymphocytes Percent Auto 22.8 % (20-40); Mean Corpuscular HGB Conc 34.3 g/dl (31.0-35.0); Mean Corpuscular Hemoglobin 32.8 pg (27.0-33.0); Mean Corpuscular Volume 95.5 fL (80.0-98.0); Mean Platelet Volume 11.1 fL (9.4-12.3); Monocytes Absolute Auto 0.7 X10*3/uL (0.1-1.2); Monocytes Percent Auto 7.3 % (2-11); Neutrophils Absolute Auto 6.3 x10*3/uL (2.0-8.3); Neutrophils Percent Auto 68.7 % (45-73); Platelet Count 272 X10*3/uL (160-400); Red Blood Count 3.78 X10*6/uL (4.20-5.50); Red Cell Distribution Width 12.9 % (11.0-16.0); White Blood Count 9.1 X10*3/uL (4.8-10.8)
[2024-11-10 17:06] LABS: Alanine Aminotransferase 11 U/L (0-31); Alkaline Phosphatase 40 U/L (39-117); Anion Gap 11 (12-20); Aspartate Amino Transferase 19 U/L (5-31); Bilirubin Total 0.7 mg/dL (0.0-1.0); Blood Urea Nitrogen 8 mg/dL (9-16); Calcium 9.8 mg/dL (8.4-10.2); Carbon Dioxide 23 mmol/L (22-29); Chloride 109 mmol/L (96-108); Estimated Glomerular Filt Rate > 60; Glucose Random 78 mg/dL (60-115); Potassium 3.7 mmol/L (3.3-5.1); Sodium 139 mmol/L (135-145); Total Protein 7.6 g/dL (6.5-8.0)
--- OUTSIDE RECORDS SUMMARY | 2024-11-10 19:15 | XMS_ITS | Encounter Summary ---
Author Organization [employer] Address [address] [place] [address] Care Team Providers Care Ladler Name Role Phone Gemini Mcmillan MD Primary Care Pro vider Reason for Visit * Reason Onset Date Comments ER Follow-up 11/07/2024 Encounter Details Date Type Department Care Team ([facility] st Contact Info) Description 11/07/2024 Telephone [facility] MEDICINE [address] [place] [address] Gemini Mcmillan MD [address] [place] [address] ER Follow-up Social History Tobacco Use Types Packs/Day Years Used Date Smoking Tobacco: Never Smokeless Tobacco: Never Alcohol Use Standard Drinks/Week Comments Yes 0 (1 standard drink = 0.6 oz pur e alcohol) Occasionally Depression Answer Date Recorded Patient Health Questionnaire-9 Score 0 12/19/2023 Patient Health Questionnaire-9 Score 0 12/19/2023 Last PHQ-9: Questionnaire Data Not on file 0 12/19/2023 Housing Stability Answer Date Recorded What is your housing situation today? I have roger capone 12/19/[address] you li ve. Do you have problems with any of the following? None of the above 12/19/2023 Food Insecurity Answer Date Recorded Within the past 12 months, y ou worried that your food would run out before you got money to buy more: Never True 12/19/2023 Within the past 12 months,th e food you bought just didn't last and you didn't have enough money to get more: Never True 03/2024 Transportation Answer Date Recorded In the past 12 months, has l ack of transportation kept you from medical appts, meetings, work or from getting things needed for daily living? No 12/19/2023 Utilities Answer Date Recorded In the past 12 months, has t he electric, gas, oil or water company threatened to shut off services in your home? No 12/19/2023 Depression Answer Date Recorded Patient Health Questionnaire-2 Score 0 12/19/2023 Comments Unknown Sex and Gender Information Value Date Recorded Sex Assigned at Female 05/09/2023 1:20 PM EDT Legal Sex Female 1:19 PM EDT Gender Identity Female 05/09/2023 1:20 PM EDT Sexual Orientation Straight 12/19/2023 9: 45 AM EST documented as of this encounter Miscellaneous Notes * Telephone Encounter - Saira Michaels RN - 11/10/2024 10:50 AM EST Pt seen at [facility] ED 11/03/24 for Dx seizure disorder. Telephone call placed to pt who reports not taking Keppra at ED because it was making her dizzy. She is 13 weeks and reports that OBGYN advised she follow up with us so she can see neurology STAT prior to them seeing her. Pt reports that she spoke to someone this morning and has an appt with Borges this afternoon. Scanned in [facility] ED summary for appt. * Telephone Encounter - Yasir Ang - 11/10/2024 9:19 AM EST Tc from pt requesting a callback in regards ER follow up as she's worried and wants to be seen by provider. [phone] * Telephone Encounter - Steve Esteban - 11/07/2024 9:04 AM EST Patient calling to report ED visit on : Date: 11/03 Hospital: [facility] Seen for: Seizures Symptomatic No *if yes message should go to Triage Patient advised will forward to team nurse for follow up Contact pt at [phone] documented in this encounter Plan of Treatment Upcoming Encounters Date Type Department Care Team (Late st Contact Info) Description 01/02/2025 11:15 AM EDT Office Visit [facility] MED[facility]INE [address] [place] [address] Andreea Borges ANP [address] [place], [place] [phone] documented as of this encounter Visit Diagnoses Not on filedocumented in this encounter Additional Health Concerns Assessment Noted Time PHQ-9 Depression Total Score: 0 12/19/19 9:28 AM EST documented as of this encounter Care Teams Ladler Relationship Specialty Start Date End Date Gemini Mcmillan MD [address], [place] [phone] PCP - General Internal Medicine 12/24/23 documented as of this encounter
--- OUTSIDE RECORDS SUMMARY | 2024-11-10 19:15 | XMS_ITS | Encounter Summary ---
Author Organization [employer] Address [address] [place] [address] Care Team Providers Care Stuffing Machine Operator Name Role Phone Gemini Mcmillan MD Primary Care Pro vider Reason for Visit * Reason Onset Date Comments Nurse Triage 11/10/2024 Encounter Details Date Type Department Care Team (Late st Contact Info) Description 11/10/2024 Telephone [facility] MEDICINE [address] [place] [address] Gemini Mcmillan MD [address] [place] [address] Nurse Triage Social History Tobacco Use Types Packs/Day Years [...] Patient Health Questionnaire-2 Score 0 12/19/2023 Comments Yes Sex and Gender Information Value Date Recorded Sex Assigned at Female 05/09/2023 1:20 PM EDT Legal Sex Female 1:19 PM EDT Gender Identity Female 05/09/2023 1:20 PM EDT Sexual Orientation Straight 12/19/2023 9: 45 AM EST documented as of this encounter Miscellaneous Notes * Telephone Encounter - Samantha Do RN - 11/10/2024 10:37 AM EST Incoming call from Marla Brewer . Reports needing to see PCP first before seeing neurologist. Pt did start keppra but stopped it due to SE of insomnia and increased anxiety. Only took meds x 2 night. Pt has not had any episodes of seizure activity since discharge or stopping meds. Per pt having increased anxiety due to worried that will have seizure again and pt is . Pt states needs a referral to Neurology. Pt given follow up appt today with team provider as will need to discuss Keppra tx plan until Neuro consult. Reviewed home care advise, ER precautions and reasons to call back. Protocol Used: Recent Medical Visit for Illness Follow-up Call (Adult) Protocol-Based Disposition: See in Office or Video Visit Today or Tomorrow Future Appointments Date Time Provider Department Center 11/10/2024 2:00 PM JESICA Barragan MEDICINE [facility] Insurance verified as active per Real Time Eligibility in [facility]. Video visit offer not recorded Positive Triage Question: * Patient wants to be seen * All higher-acuity triage questions were negative Care Advice Discussed: * Reasons To Call Back - You become worse * Telephone Encounter - Samantha Do RN - 11/10/2024 9:28 AM EST Per [facility] ER notes, pt seen on 11/03/24 following seizure . Per notes Impression and Plan Diagnosis Seizure disorder Plan Notes: Patient seen by neurologist Dr. Cummins, appreciate his recommendations. Per neurology: Start Keppra 500mg BID, obtain EEG now, obtain outpatient MRI Neurology to follow up outpatient with patient after MRI and EEG No epileptic activity while patient in ED, headache and nausea resolved Discharge home Pt to follow with [facility] Neurology [address], [place] [phone] Call returned to Marla Brewer for triage below. No answer LVM to return call to [facility] triage line [phone]. * Telephone Encounter - Yasir Ang - 11/10/2024 9:22 AM EST Symptom: Anxiety or Panic Attack Outcome: Schedule an urgent appointment (within 4 hours) or talk to a nurse or provider soon Reason: Anxiety keeps from normal daily activities (such as school or work) The caller accepted this outcome. (Pt currently her symptoms come from a call she been waiting for ER follow up as pt had seizure on 11/03/2024) documented in this encounter Plan of Treatment Upcoming Encounters Date Type Department Care Team (Late st Contact Info) Description 01/02/2025 11:15 AM EDT Office Visit [facility] MEDICINE [address] [place] [address] Andreea Borges ANP [address] [place] [address] documented as of this encounter Visit Diagnoses Not on filedocumented in this encounter Additional Health Concerns Assessment Noted Time PHQ-9 Depression Total Score: 0 12/19/19 9:28 AM EST documented as of this encounter Care Teams Stuffing Machine Operator Relationship Specialty Start Date End Date Gemini Mcmillan MD [address] [place] [address] PCP - General Internal Medicine 12/24/23 documented as of this encounter
--- OUTSIDE RECORDS SUMMARY | 2024-11-10 19:16 | XMS_ITS | Encounter Summary ---
Author Organization [employer] Address [address] [place] [address], [place] [address] Care Team Providers Care Roofing Superintendent Name Role Phone Gemini Mcmillan MD Primary Care Pro vider Reason for Referral * Consultation (Urgent) - Pending Review Specialty Diagnoses / Procedures Referred By Saul becker Referred To Contact Behavioral Health Diagnoses Anxiety Geoffrey Hadley ANP [address] [place] [address] Phone: tel: fax: Referral ID Status Reason Start Date Expiration Date Visits Requested Visits Authorized [id number] Pending Review Specialty Services Required 11/10/2024 11/10/2025 1 1 * Consultation (STAT) - Authorized Specialty Diagnoses / Procedures Referred By Saul becker Referred To Contact Neurology Diagnoses Seizure disorder (CMS/HCC) 14 weeks gestation of Geoffrey Hadley ANP [address] [place] [address] Phone: tel: fax: Jonas Olivares MD [address] [place] [address] Dr Zaragoza [place], [place] Phone: tel: fax: Referral ID Status Reason Start Date Expiration Date Visits Requested Visits Authorized [id number] Authorized Specialty Services Required 11/10/2024 11/10/2025 10 10 * Imaging (STAT) - Authorized Specialty Diagnoses / Procedures Referred By Saul becker Referred To Contact Radiology Diagnoses Seizure disorder (CMS/HCC) 14 weeks gestation of Procedures Mr Brain w/ and w/o Contrast Geoffrey Hadley ANP [address] [place] [address], [place] [address] Phone: tel: fax: [address] Phone: tel: fax: Referral ID Status Reason Start Date Expiration Date V isits Requested Visits Authorized [id number] Authorized 11/10/2024 11/10/2025 1 1 Reason for Visit * Reason Comments Dizziness Headache Seizures Pt would like like b lood work,referral ,etc.pt very concern Encounter Details Date Type Department Care Team (Late st Contact Info) Description 11/10/2024 2:00 PM EST Office Visit [facility] MEDICINE [address] [place] [address] Geoffrey Hadley ANP [address] [place] [address] Seizure disorder (CMS/HCC) (Primary Dx); 14 weeks gestation of ; Witnessed seizure-like activity (CMS/HCC); Anxiety Social History Tobacco Use Types Packs/Day Years Used Date Smoking Tobacco: Never Smokeless Tobacco: Never Tobacco Cessation:Counseling Given: Not Answered Alcohol Use Standard Drinks/Week Comments Yes 0 [...] AM EST documented as of this encounter Last Filed Vital Signs Vital Sign Reading Time Taken Comments Blood Pressure 96/58 11/10/2024 2:17 PM EST Pulse 79 11/10/2024 2:17 PM EST Temperature 36.6 ??C (97.8 ??F) 11/10/2024 2:17 PM ES T Respiratory Rate 14 11/10/2024 2:17 PM EST Oxygen Saturation - - Inhaled Oxygen Concentration - - Weight 64.5 kg (142 lb 3.2 oz) 11/10/2024 2:17 P M EST Height - - Body Mass Index 27.5 12/19/2023 9:25 AM EST documented in this encounter Patient Instructions * Patient Instructions* JESICA Barragan - 11/10/2024 2:00 PM EST Please hydrate well. With at least 1.5L daily. You can sip chicken broth, pedialyte (or similar), or make your own Oral rehydration solution (ORS) with the recipe below. Call clinic if your symptoms worsen or if you are not feeling better within 24 hours. If you are unable to keep down any liquids, please go to the emergency room. Recipe for Making a 1 litre ORS solution using Sugar, Salt and Water Clean Water - 1 litre - 5 cupfuls (each cup about 200 ml.) Sugar - Six level teaspoons Salt - Half level teaspoon Stir the mixture till the sugar dissolves. May be helpful to use warm water to help sugar dissolve and then cool to temp for drinking. documented in this encounter Progress Notes * JESICA Barragan - 11/10/2024 2:00 PM EST Subjective Patient ID: Marla Mclean is a 24 y.o. female who presents for Dizziness, Headache, and Seizures (Pt would like like blood work,referral ,etc.pt very concern). HPI Per triage note Telephone call placed to pt who reports not taking Keppra at ED because it was making her dizzy. She is 13 weeks and reports that OBGYN advised she follow up with us so she can see neurology STAT prior to them seeing her. Pt reports that she spoke to someone this morning and has an appt with Jony this afternoon. Scanned in [facility] ED summary for appt. From ER note at [facility] 11/03/24 Pt is coming from home 13 weeks , reports full body jerking movements in bed pt was not responding when this was happening, lasted 2mins .Pt bit her tongue, When EMS arrived pt was postictal and combative. Had episode 3 years ago ,never History of Present Illness MARLA MCLEAN is a 24 right handed female with a history of possible childhood seizure who presented to the ED after seizure at home. Neurology consulted for evaluation and management. Patient is returned to baseline. Accompanied by boyfriend. Boyfriend witnessed patient have at least 5 minutes of seizure activity at home with impaired awareness and tongue bite. Patient had remote episode of seizure that was not completely worked up in the past in 2018. Similar semiology. Mother at the bedside also reports she may have had a seizure during her high school or school-age years but does not recall the circumstances. Of note patient is in the first trimester of . Patient does not have headache or preceding illness. No history of substance use. No recent head traumas. Plan there: Recommendations: -Plan for routine EEG while in emergency department to assess for underlying epileptiform activity -Start Keppra 500 mg twice daily, advised this is one of the safer medications for use during . Alternative would be lamotrigine, however takes weeks to become therapeutic and is more difficult to titrate during -Patient will need an MRI brain with and without contrast seizure protocol as outpatient to complete her workup -Patient should not drive per [place] law for period of 6 months until seizure-free. EEG INTERPRETATION: This routine EEG, obtained with the patient awake, drowsy and asleep with no instructions for sleep deprivation is within normal limits. No epileptiform activity or persistent focal asymmetries occurred. Review of Systems Constitutional: Negative for chills and fever. HENT: Negative for sore throat. Respiratory: Negative for cough and shortness of breath. Cardiovascular: Negative for chest pain. Gastrointestinal: Negative for constipation and diarrhea. Endocrine: Negative for polydipsia, polyphagia and polyuria. Genitourinary: Negative for dysuria. Neurological: Positive for dizziness and weakness. Psychiatric/Behavioral: Positive for sleep disturbance. Objective BP 96/58 (BP Location: Left arm, Patient Position: Sitting, BP Cuff Size: Adult) Pulse 79 Temp 97.8 ??F (36.6 ??C) (Temporal) Resp 14 Wt 142 lb 3.2 oz (64.5 kg) BMI 27.50 kg/m?? Physical Exam Vitals reviewed. Constitutional: General: She is not in acute distress. Appearance: Normal appearance. She is not ill-appearing. HENT: Head: Normocephalic and atraumatic. Eyes: Extraocular Movements: Extraocular movements intact. Cardiovascular: Rate and Rhythm: Normal rate and regular rhythm. Pulmonary: Effort: Pulmonary effort is normal. No accessory muscle usage or respiratory distress. Neurological: Mental Status: She is alert and oriented to person, place, and time. Cranial Nerves: No cranial nerve deficit. Coordination: Coordination normal. Gait: Gait normal. Psychiatric: Mood and Affect: Mood normal. Behavior: Behavior normal. Assessment/Plan Diagnoses and all orders for this visit: Seizure disorder ([facility]) Pt reports unable to tolerate keppra 500mg BID d/t dizziness, recommend lower dose and send to neuro STAT. Check electrolytes and CBC as below. Will need MRI as well, will order. - levETIRAcetam (Keppra) 250 MG tablet; Take 1 tablet (250 mg) by mouth 2 times daily. - Mr Brain w/ and w/o Contrast; Future - Referral to Neurology; Future 14 weeks gestation of Following w/ OB at [facility]. Has appt next week. Rx'd . Advised to hydrate well, yanira d/t low BP. Witnessed seizure-like activity (CMS/HCC) - Comprehensive Metabolic Panel; Future - CBC auto differential; Future - levETIRAcetam (Keppra) 250 MG tablet; Take 1 tablet (250 mg) by mouth 2 times daily. documented in this encounter Miscellaneous Notes * Addendum Note - JESICA Barragan - 11/10/2024 2:00 PM ESTAddended by: GEOFFREY HADLEY on: 11/10/2024 02:48 PM Modules accepted: Orders documented in this encounter Plan of Treatment Upcoming Encounters Date Type Department Care Team (Late st Contact Info) Description 01/02/2025 11:15 AM EDT Office Visit [facility] MEDICINE [address] [place] [address] Geoffrey Hadley ANP [address] [place], [place] [phone] Scheduled Orders Name Type Priority Associated Diagnoses Orde r Schedule Mr Brain w/ and w/o Contrast Imaging STAT Seizure disorder (CMS/HCC) 14 weeks gestation of Expected: 11/10/2024, Expires: 11/10/2025 Scheduled Referrals Name Type Priority Associated Diagnoses Order Schedule Referral to Neurology Outpatient Referral STAT Seizure disorder (CMS/HCC) 14 weeks gestation of Expected: 11/10/2024 (Approximate), Expires: 11/10/2025 Referral to Behavioral Health Outpatient Referral Urgent Anxiety Expected: 11/10/2024 (Approximate), Expires: 11/10/2025 documented as of this encounter Procedures Procedure Name Priority Date/Time Associated Diagnosis Comments CBC WITH AUTO DIFFERENTIAL Routine 11/10/2024 3:03 PM EST Witnessed seizure-like activity (CMS/HCC) COMPREHENSIVE METABOLIC PANEL Routine 11/10/2024 3:03 PM EST Witnessed seizure-like activity (CMS/HCC) documented in this encounter Results * (ABNORMAL) CBC auto differential (11/10/2024 3:03 PM EST) White Blood Count 9.1 4.8 - 10.8 X10*3/uL [facility] Red Blood Count 3.78(L) 4.20 - 5.50 X10*6/uL [facility] Hemoglobin 12.4 12.0 - 16.0 g/dl [facility] Hematocrit 36.1(L) 37.0 - 47.0 % [facility] Mean Corpuscular Volume 95.5 80.0 - 98.0 fL [facility] Mean Corpuscular Hemoglobin 32.8 27.0 - 33.0 pg [facility] Mean Corpuscular HGB Conc 34.3 31.0 - 35.0 g/dl [facility] Red Cell Distribution Width 12.9 11.0 - 16.0 % [facility] Platelet Count 272 160 - 400 X10*3/uL [facility] Mean Platelet Volume 11.1 9.4 - 12.3 fL [facility] Neutrophils Percent Auto 68.7 45 - 73 % [facility] Imm Gran Pct Auto 0.2 0.0 - 0.4 % [facility] Lymphocytes Percent Auto 22.8 20 - 40 % [facility] Monocytes Percent Auto 7.3 2 - 11 % [facility] Eosinophils Percent Auto 0.7 0 - 4 % [facility] Basophils Percent Auto 0.3 0 - 2 % [facility] NRBC Pct Auto 0.0 0.0 - 0.2 /100WBC [facility] Neutrophils Absolute Auto 6.3 2.0 - 8.3 x10*3/uL [facility] Imm Gran Abs Auto 0.02 0.00 - 0.03 X10*3/uL [facility] Lymphocytes Absolute Auto 2.1 1.2 - 4.9 X10*3/uL [facility] Monocytes Absolute Auto 0.7 0.1 - 1.2 X10*3/uL [facility] Eosinophils Absolute Auto 0.1 0.0 - 0.4 X10*3/uL [facility] Basophils Absolute Auto 0.0 0.0 - 0.2 X10*3/uL [facility] NRBC Abs Auto 0.000 0.0 - 0.012 X10*3/uL [facility] Blood Venous blood specimen / Unknown 11/10/2024 3:03 PM EST 11/10/2024 4:23 PM EST Geoffrey Hadley [facility] BLOOD ORDERABLES Final Resul t [facility] [address], [place] [phone] * (ABNORMAL) Comprehensive Metabolic Panel (11/10/2024 3:03 PM EST) Sodium 139 135 - 145 mmol/L [facility] Potassium 3.7 3.3 - 5.1 mmol/L [facility] Chloride 109(H) 96 - 108 mmol/L [facility] Carbon Dioxide 23 22 - 29 mmol/L [facility] Anion Gap 11(L) 12 - 20 [facility] Urea Nitrogen (BUN) 8(L) 9 - 16 mg/dL [facility] Creatinine, Serum 0.72 0.5 - 1.4 mg/dL [facility] Estimated Glomerular Filt Rate >60 [facility] Comment:Chronic Kidney Disea se: Estimated GFR < 60 mL/min/[id number] Kidney Disease: Estimated GFR < 15 mL/min/1.73m2 Glucose 78 60 - 115 mg/dL [facility] Calcium 9.8 8.4 - 10.2 mg/dL [facility] Bilirubin, Total 0.7 0.0 - 1.0 mg/dL [facility] Aspartate Amino Transferase 19 5 - 31 U/L [facility] Alanine Aminotransferase 11 0 - 31 U/L [facility] Total Protein 7.6 6.5 - 8.0 g/dL [facility] Albumin Level 4.0 3.5 - 5.0 g/dL [facility] Alkaline Phosphatase 40 39 - 117 U/L [facility] Blood Venous blood specimen / Unknown 11/10/2024 3:03 PM EST 11/10/2024 4:23 PM EST us Geoffrey MOONEY LAB BLOOD ORDERABLES Final Resul t [facility] [address] [place] [address] [phone] documented in this encounter Visit Diagnoses Diagnosis Seizure disorder (CMS/HCC)- Primary Unspecified epilepsy without mention of intractable epilepsy 14 weeks gestation of Witnessed seizure-like activity (CMS/HCC) Anxiety Anxiety state, unspecified documented in this encounter Additional Health Concerns Assessment Noted Time PHQ-9 Depression Total Score: 0 12/19/19 24 9:28 AM EST documented as of this encounter Care Teams Roofing Superintendent Relationship Specialty Start Date End Date Gemini Mcmillan MD [address] [place] [id number] PCP - General Internal Medicine 12/24/23 documented as of this encounter
--- OUTSIDE RECORDS SUMMARY | 2024-11-10 19:16 | XMS_ITS | Clinical Summary ---
Author Organization [employer] Address 75 [facility] 7t [place] [address] Care Team Providers Care Liquified Natural Gas Technician Name Role Phone Gemini Mcmillan MD Primary Care Pro vider Allergies No known active allergies Medications Ventolin HFA 108 (90 Base) MCG/ACT inhaler Inhale 1 puff every 6 (six) hours if needed for wheezing. 18 g 3 4 Active levETIRAcetam (Keppra) 250 MG tabletIndicatio ns:Seizure disorder (CMS/HCC),Witne ssed seizure-like activity (CMS/HCC) Take 1 tablet (250 mg) by mouth 2 times daily. 60 tablet 1 5 Active Vit-Fe Fumarate-FA ( Vitamins) 28-0.8 MG tabletIndicatio ns:Family Planning Take 1 tablet by mouth Once per day. 90 tablet 3 5 11/10/19 26 Active budesonide (Pulmicort Flexhaler) 180 MCG/ACT inhalerIndicati ons:Asthma, unspecified asthma severity, unspecified whether complicated, unspecified whether persistent Inhale 1 puff in the morning and at bedtime. Rinse mouth with water after use to reduce aftertaste and incidence of candidiasis. Do not swallow. 1 each 2 4 11/10/19 25 Discontin ued(Thera py completed ) montelukast (Singulair) 10 MG tablet Take 1 tablet (10 mg) by mouth at bedtime. 90 tablet 4 11/10/19 25 Discontin ued(Thera py completed ) norethindrone (Ortho Micronor) 0.35 MG tablet Take 1 tablet (0.35 mg) by mouth in the morning. 28 tablet 2 03/0611/10/19 25 Discontin ued(Thera py completed ) Active Problems Problem Noted Date Diagnosed Date 14 weeks gestation of 11/10/2024 Seizure disorder 11/10/2024 Overweight 12/19/2023 Asthma 12/19/2023 Health care maintenance 12/19/2023 Comments Yes Encounters Date Type Department Care Team Description 11/10/2024 2:00 PM EST Office Visit [facility] [address] [place], [place] [phone] Andreea Borges ANP Seizure disorder (CMS/HCC) (Primary Dx); 14 weeks gestation of ; Witnessed seizure-like activity (CMS/HCC); Anxiety 11/10/2024 Telephone [facility] [address] [place] [address] Gemini Mcmillan MD Nurse Triage 11/07/2024 Telephone [facility] [address], [place] [phone] Gemini Mcmillan MD ER Follow-up from Last 3 Months Immunizations Name Administration Dates Next Due Hep A, ped/adol, 2 dose 02/18/2016 Hep B, Adolescent or Pediatric 01/27/2021,2019,09/19/2019 Influenza injectable quadriv alent IIV4 with preservative 02/18/2016 Influenza injectable quadriv alent preservative free 10/27/2022,09/14/2020,09/04/2019,08/08,02/19/2017 Meningococcal B, Recombinant 09/14/2020,09/04/20 19 Meningococcal MCV4P [id number]-135 08/28/2018 PPD Test 07/19/2023 Pfizer Covid-19 Vaccine 12+ 07/27/2022 Tdap 04/20/2023 Family History Medical History Relation Name Comments DM2 Maternal Grandmother DM2 Paternal Grandmother Relation Name Status Comments Maternal Grandmother Paternal Grandmother Social History Tobacco Use Types Packs/Day Years [...] Orientation Straight 12/19/2023 9: 45 AM EST Last Filed Vital Signs Vital Sign Reading Time Taken Comments Blood Pressure 96/58 11/10/2024 2:17 PM EST Pulse 79 11/10/2024 2:17 PM EST Temperature 36.6 ??C (97.8 ??F) 11/10/2024 2:17 PM ES T Respiratory Rate 14 11/10/2024 2:17 PM EST Oxygen Saturation 99% 12/19/2023 9:25 AM EST Inhaled Oxygen Concentration - - Weight 64.5 kg (142 lb 3.2 oz) 11/10/2024 2:17 P M EST Height 153.2 cm (5' 0.3 ) 12/19/2023 9:25 AM EST Body Mass Index 27.5 12/19/2023 9:25 AM EST Plan of Treatment Upcoming Encounters Date Type Department Care Team (Late st Contact Info) Description 01/02/2025 11:15 AM EDT Office Visit [facility] [address] [place] [address] Andreea Borges ANP [address] [place] [address] Health Maintenance Due Date Last Done Comments Chlamydia and Gonorrhea Screening 2001 HIV Screening 2001 Pneumococcal Vaccine: Pediatrics (0 to 5 Years) and At-Risk Patients (6 to 64 Years) (1 of 2 - PCV) 2007 Alcohol/Substance Use Screening 2013 Hepatitis A Vaccines (2 of 2 - 2-dose series) 08/20/2016 02/18/2016 Family Planning (PISQ) 2016 HPV Vaccines (1 - 3-dose series) 2016 Hepatitis C Screening 2019 Pap Smear 2022 COVID-19 Vaccine ( season) 2024 10/30/2022, 07/27/2022, 06/27/2022 Influenza Vaccine (#1) 2024 , 09/14/2020, 09/04/2019, Additional history exists Depression Screening 12/18/2024 12/19/2023, 12/19/19 24 SDOH Screening 12/18/2024 12/19/2023 Tobacco Screening 11/10/2025 11/10/2024 DTaP/Tdap/Td Vaccines (2 - Td or Tdap) 04/20/2033 04/20/2023 Zoster Vaccines (1 of 2) 2051 RSV Patients and Patients Aged 60 years or older (1 - 1-dose 75+ series) 2076 Meningococcal Vaccine Completed 08/28/2018 Hepatitis B Vaccines Completed 01/27/2021, 09/14/2020, 09/19/2019 HIB Vaccines Aged Out No longer eligi ble based on patient's age to complete this topic IPV Vaccines Aged Out No longer eligi ble based on patient's age to complete this topic RSV under 20 months Aged Out No longe r eligible based on patient's age to complete this topic Rotavirus Vaccines Aged Out No longer eligible based on patient's age to complete this topic Procedures Procedure Name Priority Date/Time Associated Diagnosis Comments CBC WITH AUTO DIFFERENTIAL Routine 11/10/2024 3:03 PM EST Witnessed seizure-like activity (CMS/HCC) COMPREHENSIVE METABOLIC PANEL Routine 11/10/2024 3:03 PM EST Witnessed seizure-like activity (CMS/HCC) from Last 3 Months Results * (ABNORMAL) CBC auto differential (11/10/2024 3:03 PM EST) White Blood Count 9.1 4.8 - 10.8 X10*3/uL [facility] Red Blood Count 3.78(L) 4.20 - 5.50 X10*6/uL [facility] Hemoglobin 12.4 12.0 - 16.0 g/dl [facility] Hematocrit 36.1(L) 37.0 - 47.0 % [facility] Mean Corpuscular Volume 95.5 80.0 - 98.0 fL [facility] Mean Corpuscular Hemoglobin 32.8 27.0 - 33.0 pg [facility] Mean Corpuscular HGB Conc 34.3 31.0 - 35.0 g/dl [facility] Red Cell Distribution Width 12.9 11.0 - 16.0 % [facility] Platelet Count 272 160 - 400 X10*3/uL [facility] Mean Platelet Volume 11.1 9.4 - 12.3 fL [facility] Neutrophils Percent Auto 68.7 45 - 73 % [facility] Imm Gran Pct Auto 0.2 0.0 - 0.4 % [facility] Lymphocytes Percent Auto 22.8 20 - 40 % [facility] Monocytes Percent Auto 7.3 2 - 11 % [facility] Eosinophils Percent Auto 0.7 0 - 4 % [facility] Basophils Percent Auto 0.3 0 - 2 % [facility] NRBC Pct Auto 0.0 0.0 - 0.2 /100WBC [facility] Neutrophils Absolute Auto 6.3 2.0 - 8.3 x10*3/uL [facility] Imm Gran Abs Auto 0.02 0.00 - 0.03 X10*3/uL [facility] Lymphocytes Absolute Auto 2.1 1.2 - 4.9 X10*3/uL [facility] Monocytes Absolute Auto 0.7 0.1 - 1.2 X10*3/uL [facility] Eosinophils Absolute Auto 0.1 0.0 - 0.4 X10*3/uL [facility] Basophils Absolute Auto 0.0 0.0 - 0.2 X10*3/uL [facility] NRBC Abs Auto 0.000 0.0 - 0.012 X10*3/uL [facility] Blood Venous blood specimen / Unknown 11/10/2024 3:03 PM EST 11/10/2024 4:23 PM EST Andreea Borges [facility] LAB BLOOD ORDERABLES Final Resul t [facility] [address] [place] [phone] * (ABNORMAL) Comprehensive Metabolic Panel (11/10/2024 3:03 PM EST) Sodium 139 135 - 145 mmol/L [facility] Potassium 3.7 3.3 - 5.1 mmol/L [facility] Chloride 109(H) 96 - 108 mmol/L [facility] Carbon Dioxide 23 22 - 29 mmol/L [facility] Anion Gap 11(L) 12 - 20 [facility] Urea Nitrogen (BUN) 8(L) 9 - 16 mg/dL [facility] Creatinine, Serum 0.72 0.5 - 1.4 mg/dL [facility] Estimated Glomerular Filt Rate >60 [facility] Comment:Chronic Kidney Disea se: Estimated GFR < 60 mL/min/[id number] Kidney Disease: Estimated GFR < 15 mL/min/1.73m2 Glucose 78 60 - 115 mg/dL [facility] Calcium 9.8 8.4 - 10.2 mg/dL [facility] Bilirubin, Total 0.7 0.0 - 1.0 mg/dL [facility] Aspartate Amino Transferase 19 5 - 31 U/L [facility] Alanine Aminotransferase 11 0 - 31 U/L [facility] Total Protein 7.6 6.5 - 8.0 g/dL [facility] Albumin Level 4.0 3.5 - 5.0 g/dL [facility] Alkaline Phosphatase 40 39 - 117 U/L [facility] Blood Venous blood specimen / Unknown 11/10/2024 3:03 PM EST 11/10/2024 4:23 PM EST [facility] LAB BLOOD ORDERABLES Final Resul t [facility] [address] [place] [address] [phone] from Last 3 Months Insurance [facility] C3 Care Teams Liquified Natural Gas Technician Relationship Specialty Start Date End Date Gemini Mcmillan MD [address] [place] [phone] PCP - General Internal Medicine 12/24/23
== END 2024-11-10 15:00 | disposition home or self-care (01) ==
LOC: HO.HHCL 14:59
PROVIDERS: Visit Provider Nurse Practitioner Primary Care
DX: R56.9 Unspecified convulsions (principal)
CPT/HCPCS: 36415; 80053; 85025

== ENCOUNTER 2024-11-11 19:48 | Outpatient (REF) | payer MEDICAID, SELFPAY ==
--- NOTE | ~2024-11-11 | MR_ITS ---
CLINICAL HISTORY: seizure 11 03 24; seizure protocol please Last seizure was on 11/03/24, also it was the 2nd one in 5 years. Pt is 14 wks MR Brain without gadolinium Comparison: CT/SR - BRAIN WO IV CONTRAST [id number] - 03/13/17 22:24 EDT Findings: The ventricles and subarachnoid spaces are normal in size and the ventricles are normal in position. No midline shift or herniation. Brain parenchyma is normal in signal intensity. No territorial infarct. No restricted diffusion. No focal mass lesion or mass effect. No intra-axial or extra-axial hemorrhage. The midline structures are grossly normal. Flow voids are maintained within the major vessels at the base of the brain. The orbits are normal. The sinuses and mastoid air cells are clear. No focal bone lesion. IMPRESSION: No acute findings. Unremarkable unenhanced MRI of the brain. This document has been electronically signed by: April Don MD on 11/11/2024 21:11:10
--- OUTSIDE RECORDS SUMMARY | 2024-11-11 19:52 | XMS_ITS | Clinical Summary ---
Author Organization [employer] Address 75 [facility] 7t [place] [address] Care Team Providers Care Marketing Operations Coordinator Name Role Phone Gemini Mcmillan MD Primary Care Pro vider Allergies No known active allergies Medications * This document contains information received from the source organization and may not represent a complete record from that organization. Ventolin HFA 108 (90 Base) MCG/ACT inhaler [...] mouth in the morning. 28 tablet 2 4 11/10/19 25 Discontin ued(Thera py completed ) Active Problems Problem Noted Date Diagnosed Date 14 weeks gestation of 11/10/2024 Seizure disorder 11/10/2024 Overweight 12/19/2023 Asthma 12/19/2023 Health care maintenance 12/19/2023 Comments Yes Encounters * This document contains information received from the source organization and may not represent a complete record from that organization. Date Type Department Care Team Description 11/11/2024 Telephone [facility] [address] [place] [phone] Luli Causey RN 11/10/2024 2:00 PM EST Office Visit [address] [address] Andreea Borges ANP Seizure disorder (CMS/HCC) (Primary Dx); 14 weeks gestation of ; Witnessed seizure-like activity (CMS/HCC); Anxiety 11/10/2024 Telephone [facility] [address] [place] [address] Gemini Mcmillan MD Nurse Triage 11/07/2024 Telephone [facility] [address] [place] [address] Gemini Mcmillan MD ER Follow-up from Last [...] Description 01/02/2025 11:15 AM EDT Office Visit [facility] [address] [place], [place] [phone] Andreea Borges ANP [address] [place], [place] [phone] Health Maintenance Due Date Last Done Comments [...] Blood Count 9.1 4.8 - 10.8 X10*3/uL [facility] Red Blood Count 3.78(L) 4.20 - 5.50 X10*6/uL [facility] Hemoglobin 12.4 12.0 - 16.0 g/dl [facility] Hematocrit 36.1(L) 37.0 - 47.0 % [facility] Mean Corpuscular Volume 95.5 80.0 - 98.0 fL [facility] Mean Corpuscular Hemoglobin 32.8 27.0 - 33.0 pg [facility] Mean Corpuscular HGB Conc 34.3 31.0 - 35.0 g/dl [facility] Red Cell Distribution Width 12.9 11.0 - 16.0 % [facility] Platelet Count 272 160 - 400 X10*3/uL [facility] Mean Platelet Volume 11.1 9.4 - 12.3 fL [facility] Neutrophils Percent Auto 68.7 45 - 73 % [facility] Imm Gran Pct Auto 0.2 0.0 - 0.4 % [facility] Lymphocytes Percent Auto 22.8 20 - 40 % [facility] Monocytes Percent Auto 7.3 2 - 11 % [facility] Eosinophils Percent Auto 0.7 0 - 4 % [facility] Basophils Percent Auto 0.3 0 - 2 % [facility] NRBC Pct Auto 0.0 0.0 - 0.2 /100WBC [facility] Neutrophils Absolute Auto 6.3 2.0 - 8.3 x10*3/uL [facility] Imm Gran Abs Auto 0.02 0.00 - 0.03 X10*3/uL [facility] Lymphocytes Absolute Auto 2.1 1.2 - 4.9 X10*3/uL [facility] Monocytes Absolute Auto 0.7 0.1 - 1.2 X10*3/uL [facility] Eosinophils Absolute Auto 0.1 0.0 - 0.4 X10*3/uL [facility] Basophils Absolute Auto 0.0 0.0 - 0.2 X10*3/uL [facility] NRBC Abs Auto 0.000 0.0 - 0.012 X10*3/uL [facility] Blood Venous blood specimen / Unknown 11/10/2024 3:03 PM EST 11/10/2024 4:23 PM EST Andreea Borges [facility] LAB BLOOD ORDERABLES Final Resul t [facility] [address] [place] [phone] [phone] * (ABNORMAL) Comprehensive Metabolic Panel (11/10/2024 3:03 PM EST) Sodium 139 135 - 145 mmol/L [facility] Potassium 3.7 3.3 - 5.1 mmol/L [facility] Chloride 109(H) 96 - 108 mmol/L [facility] Carbon Dioxide 23 22 - 29 mmol/L [facility] Anion Gap 11(L) 12 - 20 [facility] Urea Nitrogen (BUN) 8(L) 9 - 16 mg/dL [facility] Creatinine, Serum 0.72 0.5 - 1.4 mg/dL [facility] Estimated Glomerular Filt Rate >60 [facility] Comment:Chronic Kidney Disea se: Estimated GFR < 60 mL/min/[id number] Kidney Disease: Estimated GFR < 15 mL/min/1.73m2 Glucose 78 60 - 115 mg/dL [facility] Calcium 9.8 8.4 - 10.2 mg/dL [facility] Bilirubin, Total 0.7 0.0 - 1.0 mg/dL [facility] Aspartate Amino Transferase 19 5 - 31 U/L [facility] Alanine Aminotransferase 11 0 - 31 U/L [facility] Total Protein 7.6 6.5 - 8.0 g/dL [facility] Albumin Level 4.0 3.5 - 5.0 g/dL [facility] Alkaline Phosphatase 40 39 - 117 U/L [facility] Blood Venous blood specimen / Unknown 11/10/2024 3:03 PM EST 11/10/2024 4:23 PM EST [facility] LAB BLOOD ORDERABLES Final Resul t [facility] [address] [place] [address] [phone] from Last 3 Months Insurance [facility] C3 Care Teams Marketing Operations Coordinator Relationship Specialty Start Date End Date Gemini Mcmillan MD [address] [place] [phone] PCP - General Internal Medicine 12/24/23
--- OUTSIDE RECORDS SUMMARY | 2024-11-11 19:52 | XMS_ITS | Encounter Summary ---
Author Organization [employer] Address [address] [place] [address] 7 [place] [address] Care Team Providers Care Triage Technician Name Role Phone Gemini Mcmillan MD Primary Care Pro vider Reason for Visit * Reason Onset Date Comments ER Follow-up 11/07/2024 Encounter Details Date Type Department Care Team ([facility] st Contact Info) Description 11/07/2024 Telephone [facility] [address] [place] [phone] Gemini Mcmillan MD [address] [place] [address] ER Follow-up Social History Tobacco Use Types [...] 11/10/2024 10:50 AM EST Pt seen at [facility] ED 11/03/24 for Dx seizure disorder. Telephone [...] appt with Jony this afternoon. Scanned in [facility] ED summary for appt. * Telephone Encounter - Yasir Ang - 11/10/2024 9:19 AM EST Tc from pt requesting a callback in regards ER follow up as she's worried and wants to be seen by provider. [phone] * Telephone Encounter - Steve Esteban - 11/07/2024 9:04 AM EST Patient calling to report ED visit on : Date: 11/03 Hospital: [facility] Seen for: Seizures Symptomatic No *if yes message should go to Triage Patient advised will forward to team nurse for follow up Contact pt at [phone] documented in this encounter Plan of Treatment Upcoming Encounters Date Type Department Care Team (Late st Contact Info) Description 01/02/2025 11:15 AM EDT Office Visit [facility] [address] [place] [address] Andreea Borges ANP [address] [place] [address] documented as of this encounter Visit Diagnoses Not on filedocumented in this encounter Additional Health Concerns Assessment Noted Time PHQ-9 Depression Total Score: 0 12/19/19 9:28 AM EST documented as of this encounter Care Teams Triage Technician Relationship Specialty Start Date End Date Gemini Mcmillan MD [address] [place] [address] PCP - General Internal Medicine 12/24/23 documented as of this encounter
--- OUTSIDE RECORDS SUMMARY | 2024-11-11 19:52 | XMS_ITS | Encounter Summary ---
Author Organization [employer] Address 75 [facility] 7t [place] [address] Care Team Providers Care Grinder Mill Operator Name Role Phone Gemini Mcmillan MD Primary Care Pro vider Reason for Referral * Consultation (Urgent) - Closed Specialty Diagnoses / Procedures Referred By Saul becker Referred To Contact Behavioral Health Diagnoses Anxiety Geoffrey Hadley ANP [address] [place] [phone] Phone: tel: fax: Referral ID Status Reason Start Date Expiration Date V isits Requested Visits Authorized [id number] Closed Specialty Services Required 11/10/2024 11/10/2025 1 1 * Consultation (STAT) - Authorized Specialty Diagnoses / Procedures Referred By Saul becker Referred To Contact Neurology Diagnoses Seizure disorder ([facility]/HCC) 14 weeks gestation of Geoffrey Hadley ANP [address] [place] [phone] Phone: tel: fax: Jonas Olivares MD [address] [place] [address] [place] [address] Phone: tel: fax: Referral ID Status Reason Start Date Expiration Date Visits Requested Visits Authorized [id number] Authorized Specialty Services Required 11/10/2024 11/10/2025 10 10 Reason for Visit * Reason Comments Dizziness Headache Seizures Pt would like like b lood work,referral ,etc.pt very concern Encounter Details Date Type Department Care Team (Late st Contact Info) Description 11/10/2024 2:00 PM EST Office Visit [facility] [address] [place] [address] Geoffrey Hadley ANP [address] [place] [address] Seizure disorder (CMS/HCC) (Primary Dx); 14 weeks [...] appt with Jony this afternoon. Scanned in [facility] ED summary for appt. From ER note at [facility] 11/03/24 Pt is coming from home [...] her workup -Patient should not drive per [place] law for period of 6 months until [...] all orders for this visit: Seizure disorder (CMS/HCC) Pt reports unable to tolerate keppra 500mg [...] weeks gestation of Following w/ OB at [facility]. Has appt next week. Rx'd . [...] Description 01/02/2025 11:15 AM EDT Office Visit [facility] [address] [place] [address] Geoffrey Hadley ANP [address] [place] [address] Scheduled Referrals Name Type Priority Associated Diagnoses [...] Blood Count 9.1 4.8 - 10.8 X10*3/uL [facility] Red Blood Count 3.78(L) 4.20 - 5.50 X10*6/uL [facility] Hemoglobin 12.4 12.0 - 16.0 g/dl [facility] Hematocrit 36.1(L) 37.0 - 47.0 % [facility] Mean Corpuscular Volume 95.5 80.0 - 98.0 fL [facility] Mean Corpuscular Hemoglobin 32.8 27.0 - 33.0 pg [facility] Mean Corpuscular HGB Conc 34.3 31.0 - 35.0 g/dl [facility] Red Cell Distribution Width 12.9 11.0 - 16.0 % [facility] Platelet Count 272 160 - 400 X10*3/uL [facility] Mean Platelet Volume 11.1 9.4 - 12.3 fL [facility] Neutrophils Percent Auto 68.7 45 - 73 % [facility] Imm Gran Pct Auto 0.2 0.0 - 0.4 % [facility] Lymphocytes Percent Auto 22.8 20 - 40 % [facility] Monocytes Percent Auto 7.3 2 - 11 % [facility] Eosinophils Percent Auto 0.7 0 - 4 % [facility] Basophils Percent Auto 0.3 0 - 2 % [facility] NRBC Pct Auto 0.0 0.0 - 0.2 /100WBC [facility] Neutrophils Absolute Auto 6.3 2.0 - 8.3 x10*3/uL [facility] Imm Gran Abs Auto 0.02 0.00 - 0.03 X10*3/uL [facility] Lymphocytes Absolute Auto 2.1 1.2 - 4.9 X10*3/uL [facility] Monocytes Absolute Auto 0.7 0.1 - 1.2 X10*3/uL [facility] Eosinophils Absolute Auto 0.1 0.0 - 0.4 X10*3/uL [facility] Basophils Absolute Auto 0.0 0.0 - 0.2 X10*3/uL [facility] NRBC Abs Auto 0.000 0.0 - 0.012 X10*3/uL [facility] Blood Venous blood specimen / Unknown 11/10/2024 3:03 PM EST 11/10/2024 4:23 PM EST Geoffrey Hadley [facility] LAB BLOOD ORDERABLES Final Resul t [facility] [address] [place] [phone] * (ABNORMAL) Comprehensive Metabolic Panel (11/10/2024 3:03 PM EST) Sodium 139 135 - 145 mmol/L [facility] Potassium 3.7 3.3 - 5.1 mmol/L [facility] Chloride 109(H) 96 - 108 mmol/L [facility] Carbon Dioxide 23 22 - 29 mmol/L [facility] Anion Gap 11(L) 12 - 20 [facility] Urea Nitrogen (BUN) 8(L) 9 - 16 mg/dL [facility] Creatinine, Serum 0.72 0.5 - 1.4 mg/dL [facility] Estimated Glomerular Filt Rate >60 [facility] Comment:Chronic Kidney Disea se: Estimated GFR < 60 mL/min/[id number] Kidney Disease: Estimated GFR < 15 mL/min/1.73m2 Glucose 78 60 - 115 mg/dL [facility] Calcium 9.8 8.4 - 10.2 mg/dL [facility] Bilirubin, Total 0.7 0.0 - 1.0 mg/dL [facility] Aspartate Amino Transferase 19 5 - 31 U/L [facility] Alanine Aminotransferase 11 0 - 31 U/L [facility] Total Protein 7.6 6.5 - 8.0 g/dL [facility] Albumin Level 4.0 3.5 - 5.0 g/dL [facility] Alkaline Phosphatase 40 39 - 117 U/L [facility] Blood Venous blood specimen / Unknown 11/10/2024 3:03 PM EST 11/10/2024 4:23 PM EST Geoffrey Hadley [facility] LAB BLOOD ORDERABLES Final Resul t [facility] [address] [place] [address] [phone] documented in this encounter Visit Diagnoses Diagnosis Seizure disorder (CMS/HCC)- Primary Unspecified epilepsy without mention of intractable epilepsy 14 weeks gestation of Witnessed seizure-like activity (CMS/HCC) Anxiety Anxiety state, unspecified documented in this encounter Additional Health Concerns Assessment Noted Time PHQ-9 Depression Total Score: 0 12/19/19 24 9:28 AM EST documented as of this encounter Care Teams Grinder Mill Operator Relationship Specialty Start Date End Date Gemini Mcmillan MD [address] [place] [phone] PCP - General Internal Medicine 12/24/23 documented as of this encounter
--- OUTSIDE RECORDS SUMMARY | 2024-11-11 19:52 | XMS_ITS | Encounter Summary ---
Author Organization [employer] Address [address] [facility] 7t [place] [address] Care Team Providers Care Back Maker Name Role Phone Gemini Mcmillan MD Primary Care Pro vider Reason for Referral * Imaging (STAT) - Authorized Specialty Diagnoses / Procedures Referred By Contac t Referred To Contact Radiology Diagnoses Seizure disorder (CMS/HCC) Procedures MR Brain w/o Contrast Geoffrey Hadley ANP [address] [place] [address] Phone: tel: fax: [address] Phone: tel: fax: Referral ID Status Reason Start Date Expiration Date V isits Requested Visits Authorized [id number] Authorized 11/11/2024 11/11/2025 1 1 Encounter Details Date Type Department Care Team ([facility] st Contact Info) Description 11/11/2024 Telephone [facility] [address] [place] [address] Luli Causey, AMANDEEP Social History Tobacco Use Types Packs/Day Years [...] encounter Miscellaneous Notes * Telephone Encounter - Luli Causey RN - 11/11/2024 12:16 PM EST Returned call to Graciela at [facility] MRI. Graciela stated that she received the fax with the new order and the ptis scheduled for MRI this evening. No further follow up required at this time. -- Geoffrey Hadley NP Have ordered updated MRI thanks * Addendum Note - JESICA Barragan - 11/11/2024 10:25 AM ESTAddended by: GEOFFREY HADLEY on: 11/11/2024 10:25 AM Modules accepted: Orders * Telephone Encounter - Luli Causey RN - 11/11/2024 9:31 AM EST Incoming phone call from Graciela at [facility] Radiology regarding STAT referral from yesterday for MRI of thebrain. Per Dr Encinas, since the pt is 14 weeks gestation, the MRI order should be written without contrast only. Previously written MR BRAIN W AND WO CONTRAST. Will send high priority to ordering provider to update MRI order. Graciela asking for call back once text updated at [phone] documented in this encounter Plan of Treatment Upcoming Encounters Date Type Department Care Team (Late st Contact Info) Description 01/02/2025 11:15 AM EDT Office Visit [facility] [address] [place] [address] Geoffrey Hadley ANP [address] [place] [address] Scheduled Orders Name Type Priority Associated Diagnoses Orde r Schedule MR Brain w/o Contrast Imaging STAT Seizure disorder (CMS/HCC) Expected: 11/11/2024, Expires: 11/11/2025 documented as of this encounter Visit Diagnoses Diagnosis 14 weeks gestation of - Primary Seizure disorder (CMS/HCC) Unspecified epilepsy without mention of intractable epilepsy documented in this encounter Additional Health Concerns Assessment Noted Time PHQ-9 Depression Total Score: 0 12/19/19 9:28 AM EST documented as of this encounter Care Teams Back Maker Relationship Specialty Start Date End Date Gemini Mcmillan MD [address] [place] [address] [phone] PCP - General Internal Medicine 12/24/23 documented as of this encounter
== END 2024-11-11 19:49 | disposition home or self-care (01) ==
LOC: HO.MRI 19:48
PROVIDERS: PCP Student in an Organized Health Care Education/Training Program; Visit Provider Nurse Practitioner Primary Care
DX: G40.909 Epilepsy, unspecified, not intractable, without status epilepticus (principal)
CPT/HCPCS: 70551

== ENCOUNTER → 2024-11-11 19:59 | Outpatient (BNV) | payer MEDICAID, SELFPAY | PROVIDERS: PCP Student in an Organized Health Care Education/Training Program; Visit Provider Specialist | DX: G40.89 Other seizures (principal) | CPT/HCPCS: 70551 ==

== ENCOUNTER 2024-12-20 01:04 | Emergency (ER) | payer MEDICAID, SELFPAY ==
[2024-12-20 01:06] VITALS: BP 115/61; PULSE 84; RESP 18; TEMP 36.7; O2SAT 100; BMI 26.9
--- NOTE | 2024-12-20 01:17 | ED.FEMALEGU ---
HPI - Female Genitourinary General Chief complaint: Abdominal Pain Stated complaint: n/v Time Seen by Provider: 12/20/24 01:16 Source: patient Mode of arrival: ambulatory Limitations: no limitations History of Present Illness ED Provider: HPI Narrative: Patient is 20 weeks comes here with nausea vomiting started earlier in the evening unable to take any fluids after vomiting started patient noticed pain in the epigastric area no pain in the right upper quadrant history of gallstones no fever no chills no urinary symptoms no vaginal bleed movements are normal per patient patient has had ultrasound done on 12/17 at [facility] which showed IUP with normal growth Related Data Previous Rx's ?Medication ?Instructions ?Recorded omeprazole 40 mg capsule,delayed 40 mg PO DAILY #14 caps 07/23/20 release ondansetron HCl 4 mg tablet 4 mg PO Q6H PRN nausea and 07/23/20 (Zofran) vomiting #7 tabs ondansetron 4 mg disintegrating 4 mg PO Q6H PRN nausea and 11/04/21 tablet vomiting #7 tabs acetaminophen 500 mg tablet 500 mg PO Q6H PRN pain or fever 01/03/22 (Tylenol Extra Strength) #20 tabs lidocaine 5 % topical patch 1 patch topical DAILY PRN pain #30 01/03/22 (Lidoderm) ea naproxen 500 mg tablet 500 mg PO BID PRN pain 10 days #20 01/03/22 tabs ondansetron HCl 4 mg tablet 4 mg PO Q8H PRN nausea and 01/18/22 vomiting 4 days #12 tabs metronidazole 500 mg tablet 500 mg PO BID 7 days #14 tabs 06/22/22 acetaminophen 500 mg tablet 500 mg PO Q6H PRN fever or pain 08/04/22 (Tylenol Extra Strength) #14 tabs cyclobenzaprine 5 mg tablet 5 mg PO Q8H PRN pain (scale score 08/04/22 7-10) 5 days #14 tabs lidocaine 5 % topical patch 1 patch topical DAILY PRN pain #30 08/04/22 (Lidoderm) ea naproxen 500 mg tablet 500 mg PO BID PRN pain 10 days #20 08/04/22 tabs acetaminophen 500 mg tablet 1,000 mg (2 x 500 mg) PO QID PRN 08/24/22 (Tylenol Extra Strength) fever or pain #14 tabs ibuprofen 800 mg tablet 800 mg PO Q8H PRN pain #14 tabs 08/24/22 pyridoxine (vitamin B6) 25 mg 25 mg PO TID 30 days #90 tabs 11/18/22 tablet cimetidine 800 mg tablet 800 mg PO BID #60 tabs 01/02/23 metoclopramide HCl 10 mg tablet 10 mg PO Q6H PRN nausea and 01/02/23 (Reglan) vomiting #20 tabs cephalexin 500 mg capsule 500 mg PO TID 7 days #21 caps 01/28/23 cefuroxime axetil 250 mg tablet 250 mg PO BID 7 days #14 tabs 06/22/23 ondansetron 4 mg disintegrating 4 mg PO Q6-8H PRN nausea and 06/22/23 tablet vomiting #10 tabs ibuprofen 600 mg tablet 600 mg PO Q6H PRN fever or pain 08/11/23 #20 tabs ondansetron 4 mg disintegrating 4 mg PO DAILY PRN nausea and 01/13/24 tablet vomiting #7 tabs nitrofurantoin 100 mg PO BID 7 days #14 caps 12/20/24 monohydrate/macrocrystals 100 mg capsule (Macrobid) ondansetron 4 mg disintegrating 4 mg PO Q6-8H PRN nausea and 12/20/24 tablet vomiting #20 tabs Allergies Allergy/AdvReac Type Severity Reaction Status Date / Time No Known Allergies Allergy Verified 12/20/24 01:07 Review of Systems Review of Systems: Yes all other systems are reviewed and are negative PMFSH Past Medical History Medical History Syncope Asthma Social History Social History Alcohol intake: never Smoked in Last 30 Days: No Use of substances other than those prescribed or required for medical reasons: No Substance Use Type: Marijuana Advance Directives: No Advance Directives Information Provided: Yes Do you have a plan to hurt others: No Plan Patient : Yes Physical Exam Vital Signs: Vital Signs: Last Vital Signs Temp 98.2 F 12/20/24 03:05 Pulse 86 12/20/24 03:05 Resp 18 12/20/24 03:05 BP 102/54 L 12/20/24 03:05 Pulse Ox 99 12/20/24 03:05 O2 Del Method Room Air 12/20/24 03:05 BMI result Body Mass Index 26.9 Appearance: Alert. Oriented X3. No acute distress. Eyes: PERRLA, No Nystagmus ENT: Pharynx normal. Oral Mucosa moist Neck: Normal inspection. Neck supple. CVS: Normal heart rate and rhythm. Pulses normal. Respiratory: No respiratory distress. Equal air entry bilateral, no wheezing/rales/rhonchi Abdomen: gravid uterus, tenderness in epigastric area Bowel sounds are present, no mass palpable, no CVA tenderness heart tones present Simmons sign negative Skin: Skin warm and dry. Normal skin color. Normal skin turgor. Extremities: No lower extremity edema. No calf tenderness Neuro: Oriented X 3. No motor deficit. No sensory deficit. Medications Administered Discontinued Medications Generic Name Dose Route Start Last Admin Trade Name Freq PRN Reason Stop Dose Admin Sodium Chloride 1,000 mls @ 999 mls/hr 12/20/24 01:26 12/20/24 02:41 Ns IV 12/20/24 02:26 Infused .Q1H1M ONE Infusion Sodium Chloride 1,000 mls @ 999 mls/hr 12/20/24 02:39 12/20/24 04:01 Ns IV 12/20/24 03:39 Infused .Q1H1M ONE Infusion Metoclopramide HCl 10 mg 12/20/24 02:39 12/20/24 03:07 Metoclopramide Hcl 10 Mg/2 Ml Vial IVPUSH 12/20/24 02:40 10 mg ONCE ONE Administration Nitrofurantoin Macrocrystals 100 mg 12/20/24 04:02 12/20/24 04:07 Nitrofurantoin Monohyd/M-Cryst 100 Mg Capsule PO 12/20/24 04:03 100 mg ONCE ONE Administration Ondansetron HCl 4 mg 12/20/24 01:26 12/20/24 01:37 Ondansetron Hcl 4 Mg/2 Ml Vial IVPUSH 12/20/24 01:27 4 mg ONCE ONE Administration Medical Decision Making Medical Decision Making [facility] Narrative: Patient with 2nd trimester comes here with nausea vomiting with the epigastric pain labs are stable patient is unable to hold any liquids received 2 L of was given Zofran and metoclopramide Patient is feeling much better now taking p.o. fluids workup showed bacteria in the urine no ketones discharge patient home on Macrobid and Zofran Lab Data [facility] Lab Attestation statement: I reviewed the patient's lab results. 12/20/24 01:30 12/20/24 01:30 Labs: Lab Results 12/20/24 12/20/24 12/20/24 Range/Units 01:22 01:30 03:38 WBC 10.1 (4.8-10.8) X10*3/uL RBC 3.93 L (4.20-5.50) X10*6/uL Hgb 13.0 (12.0-16.0) g/dl Hct 36.5 L (37.0-47.0) % MCV 92.9 (80.0-98.0) fL MCH 33.1 H (27.0-33.0) pg MCHC 35.6 H (31.0-35.0) g/dl RDW 12.9 (11.0-16.0) % Plt Count 226 (160-400) X10*3/uL MPV 10.0 (9.4-12.3) fL Immature Gran % (Auto) 0.5 H (0.0-0.4) % Neut % (Auto) 83.2 H (45-73) % Lymph % (Auto) 8.9 L (20-40) % [place] % (Auto) 6.0 (2-11) % Eos % (Auto) 1.3 (0-4) % Baso % (Auto) 0.1 (0-2) % Lymph # (Auto) 0.9 L (1.2-4.9) X10*3/uL [place] # (Auto) 0.6 (0.1-1.2) X10*3/uL Eos # (Auto) 0.1 (0.0-0.4) X10*3/uL Baso # (Auto) 0.0 (0.0-0.2) X10*3/uL Abs Immat Gran (auto) 0.05 H (0.00-0.03) X10*3/uL Absolute Neuts (auto) 8.4 H (2.0-8.3) x10*3/uL Absolute Nucleated RBC 0.000 (0.0-0.012) X10*3/uL Nucleated RBC % (auto) 0.0 (0.0-0.2) /100WBC Sodium 137 (135-145) mmol/L Potassium 4.0 (3.3-5.1) mmol/L Chloride 107 (96-108) mmol/L Carbon Dioxide 22 (22-29) mmol/L Anion Gap 12 (12-20) BUN 7 L (9-16) mg/dL Creatinine 0.56 (0.5-1.4) mg/dL Estim Creat Clear Calc 139.9 Estimated GFR > 60 Random Glucose 104 (60-115) mg/dL Calcium 9.1 D (8.4-10.2) mg/dL Total Bilirubin 0.8 (0.0-1.0) mg/dL AST 22 (5-31) U/L ALT 11 (0-31) U/L Alkaline Phosphatase 43 (39-117) U/L Total Protein 7.6 (6.5-8.0) g/dL Albumin 3.8 (3.5-5.0) g/dL Urine Color Dark Yellow Urine Appearance Clear Urine pH 6.5 (5.0-9.0) Ur Specific Grahn 1.025 (1.005-1.025) Urine Protein Trace (Neg-Trace) mg/dL Urine Glucose (UA) Negative (Negative) mg/dL Urine Ketones Negative (Negative) mg/dL Urine Blood Negative (Negative) Urine Nitrite Negative (Negative) Ur Leukocyte Esterase Trace H (Negative) Urine RBC 0-2 (0-2) /HPF Urine WBC 6-10 H (0-5) /HPF Ur Squamous Epith Cells 6-10 (0-2) /HPF Urine Bacteria 2+ (None Seen) Hyaline Casts 0-2 (0-2) /LPF Influenza Type A (PCR) NEGATIVE (Negative) Influenza Type B (PCR) NEGATIVE (Negative) RSV RNA Qual (PCR) NEGATIVE (Negative) SARS-CoV-2 RNA (RT-PCR) NEGATIVE (Negative) Discharge Plan Discharge Clinical Impression: Vomiting during , UTI (urinary tract infection) Patient Disposition: Home, Self-Care Instructions: Urinary Tract Infection in (ED) Additional Instructions: Drink plenty of fluids Antibiotic as prescribed Nausea medicine as prescribed Follow up with your Ob G if not better Prescriptions: New ondansetron 4 mg tablet,disintegrating 4 mg PO Q6-8H PRN (Reason: nausea and vomiting) Qty: 20 0RF nitrofurantoin monohyd/m-cryst [Macrobid] 100 mg capsule 100 mg PO BID 7 Days Qty: 14 0RF Rx Instructions: must administer with a meal/food No Action ondansetron HCl [Zofran] 4 mg tablet 4 mg PO Q6H PRN (Reason: nausea and vomiting) Qty: 7 0RF omeprazole 40 mg capsule,delayed release(DR/EC) 40 mg PO DAILY Qty: 14 0RF ondansetron 4 mg tablet,disintegrating 4 mg PO Q6H PRN (Reason: nausea and vomiting) Qty: 7 0RF ondansetron HCl 4 mg tablet 4 mg PO Q8H PRN (Reason: nausea and vomiting) 4 Days Qty: 12 0RF metronidazole 500 mg tablet 500 mg PO BID 7 Days Qty: 14 0RF acetaminophen [Tylenol Extra Strength] 500 mg tablet 500 mg PO Q6H PRN (Reason: fever or pain) Qty: 14 0RF naproxen 500 mg tablet 500 mg PO BID PRN (Reason: pain) 10 Days Qty: 20 0RF cyclobenzaprine 5 mg tablet 5 mg PO Q8H PRN (Reason: pain (scale score 7-10)) 5 Days Qty: 14 0RF lidocaine [Lidoderm] 5 % adhesive patch,medicated 1 patch topical DAILY MDD remove after 12 hours PRN (Reason: pain) Qty: 30 0RF Rx Instructions: leave on most painful area for up to 12 hrs acetaminophen [Tylenol Extra Strength] 500 mg tablet 500 mg PO Q6H PRN (Reason: pain or fever) Qty: 20 0RF lidocaine [Lidoderm] 5 % adhesive patch,medicated 1 patch topical DAILY MDD remove after 12 hours PRN (Reason: pain) Qty: 30 0RF Rx Instructions: leave on most painful area for up to 12 hrs naproxen 500 mg tablet 500 mg PO BID PRN (Reason: pain) 10 Days Qty: 20 0RF ibuprofen 800 mg tablet 800 mg PO Q8H PRN (Reason: pain) Qty: 14 0RF acetaminophen [Tylenol Extra Strength] 500 mg tablet 1,000 mg PO QID PRN (Reason: fever or pain) Qty: 14 0RF pyridoxine (vitamin B6) 25 mg tablet 25 mg PO TID 30 Days Qty: 90 0RF cimetidine 800 mg tablet 800 mg PO BID Qty: 60 0RF Rx Instructions: administer with meals metoclopramide HCl [Reglan] 10 mg tablet 10 mg PO Q6H PRN (Reason: nausea and vomiting) Qty: 20 0RF cefuroxime axetil 250 mg tablet 250 mg PO BID 7 Days Qty: 14 0RF ondansetron 4 mg tablet,disintegrating 4 mg PO Q6-8H PRN (Reason: nausea and vomiting) Qty: 10 0RF ibuprofen 600 mg tablet 600 mg PO Q6H PRN (Reason: fever or pain) Qty: 20 0RF ondansetron 4 mg tablet,disintegrating 4 mg PO DAILY PRN (Reason: nausea and vomiting) Qty: 7 0RF cephalexin 500 mg capsule 500 mg PO TID 7 Days Qty: 21 0RF Print Language: Croatian
--- NOTE | 2024-12-20 01:25 | PC.NURSE ---
HEART 145 WITH DOPPLER
[2024-12-20] MEDS: 0.9 % Sodium Chloride 1,000 ML 999 ML IV ×2 (01:33→03:07)
[2024-12-20 01:35] LABS: Basophils Percent Auto 0.1 % (0-2); Eosinophils Absolute Auto 0.1 X10*3/uL (0.0-0.4); Eosinophils Percent Auto 1.3 % (0-4); Hematocrit 36.5 % (37.0-47.0); Imm Gran Abs Auto 0.05 X10*3/uL (0.00-0.03); Imm Gran Pct Auto 0.5 % (0.0-0.4); Lymphocytes Absolute Auto 0.9 X10*3/uL (1.2-4.9); Lymphocytes Percent Auto 8.9 % (20-40); MANUAL DIFF FLAG NO; Mean Corpuscular HGB Conc 35.6 g/dl (31.0-35.0); Mean Corpuscular Hemoglobin 33.1 pg (27.0-33.0); Mean Corpuscular Volume 92.9 fL (80.0-98.0); Monocytes Absolute Auto 0.6 X10*3/uL (0.1-1.2); Neutrophils Absolute Auto 8.4 x10*3/uL (2.0-8.3); Neutrophils Percent Auto 83.2 % (45-73); Platelet Count 226 X10*3/uL (160-400); Red Blood Count 3.93 X10*6/uL (4.20-5.50); Red Cell Distribution Width 12.9 % (11.0-16.0); White Blood Count 10.1 X10*3/uL (4.8-10.8)
[2024-12-20] MEDS: ondansetron HCL 4 MG/2 ML VIAL IVPUSH (01:37)
--- OUTSIDE RECORDS SUMMARY | 2024-12-20 01:50 | XMS_ITS | Encounter Summary ---
Author Organization [employer] Address [address] [place] [id number] Care Team Providers Care Support Services Coordinator Name Role Phone Gemini Mcmillan MD Primary Care Pro vider Reason for Visit * Reason Comments Care Coordination [id number]/BRAYDEN Zhang#1- HR Maternity Outreach Encounter Details Date Type Department Care Team (Latest Contact Info) Description 12/15/2024 Patient Outreach [facility] [address] [place] [phone] Gemini Mcmillan MD [address] [place] [address] Care Coordination (JULIA/BRAYDEN Baker#1- HR Maternity Outreach) Social History Tobacco Use Types Packs/Day Years [...] What is your housing situation today? I do not have housing (Staying with others, in a hotel, in a jail, living outside on the street, on a beach, in a car, or in a park 12/15/[address] you li ve. Do you have problems with any of the following? None of the above 12/15/2024 Food Insecurity Answer Date Recorded Within the [...] Recorded Patient Health Questionnaire-2 Score 0 12/19/2023 Internet Access Answer Date Recorded Internet Access Q1 Yes 12/15/2024 Internet Access Q2 Not on file 12/15/2024 Comments Yes Sex and Gender Information Value Date Recorded Sex Assigned at Female 05/09/2023 1:20 PM EDT Legal Sex Female 1:19 PM EDT Gender Identity Female 05/09/2023 1:20 PM EDT Sexual Orientation Straight 12/19/2023 9: 45 AM EST documented as of this encounter Progress Notes * Alexandra Green - 12/15/2024 9:48 AM EST CHW Alexandra Green, [facility]W [facility]. Patient's name and was confirmed. CHW introduced CM Maternity Program to patient. Pt requesting call back at a later time. CHW will re-attempt calling pt back this afternoon. documented in this encounter Plan of Treatment Upcoming Encounters Date Type Department Care Team (Late st Contact Info) Description 01/02/2025 11:15 AM EDT Office Visit [facility] [address] [place] [address] Andreea Borges ANP [address] [place] [phone] documented as of this encounter Visit Diagnoses Not on filedocumented in this encounter Additional Health Concerns Assessment Noted Time PHQ-9 Depression Total Score: 0 12/19/19 9:28 AM EST documented as of this encounter Care Teams Support Services Coordinator Relationship Specialty Start Date End Date Gemini Mcmillan MD [address] [place] [id number] PCP - General Internal Medicine 12/24/23 documented as of this encounter
--- OUTSIDE RECORDS SUMMARY | 2024-12-20 01:50 | XMS_ITS | Encounter Summary ---
Author Organization [employer] Address [address] [place] [address] 7 [place] [address] Care Team Providers Care Health Plan Specialist Name Role Phone Gemini Mcmillan MD Primary Care Pro vider Reason for Visit * Reason Comments Care Management [facility] chart review Encounter Details Date Type Department Care Team ([facility] st Contact Info) Description 12/15/2024 Telephone [facility] [address] [place] [phone] Gemini Mcmillan MD [address] [place] [phone] Care Management ([facility] chart review) Social History Tobacco Use Types Packs/Day Years [...] with others, in a hotel, in a assisted, living outside on the street, on a [...] as of this encounter Progress Notes * Jannette Self - 12/15/2024 9:00 AM EST KESHAV Self RN, performed chart review, in anticipation of initial assessment with patient, as patient was referred by provider for Complex Care High Risk Maternity. History significant for asthma, overweight, anxiety and seizure disorder. Specialists include [facility] neurology. No known ED visits or hospitalizations. Last appointment in PCP office on 11/25/24. Next appointment scheduled for 01/02/25. 15 weeks and having difficulty with seizures and titrating of medication during . documented in this encounter Plan of Treatment Upcoming Encounters Date Type Department Care Team (Late st Contact Info) Description 01/02/2025 11:15 AM EDT Office Visit [facility] [address] [place], [place] [phone] Andreea Borges ANP [address] [place] [address] documented as of this encounter Visit Diagnoses Not on filedocumented in this encounter Additional Health Concerns Assessment Noted Time PHQ-9 Depression Total Score: 0 12/19/19 24 9:28 AM EST documented as of this encounter Care Teams Health Plan Specialist Relationship Specialty Start Date End Date Gemini Mcmlilan MD [address] [place] [id number] PCP - General Internal Medicine 12/24/23 documented as of this encounter
--- OUTSIDE RECORDS SUMMARY | 2024-12-20 01:50 | XMS_ITS | Encounter Summary ---
Author Organization [employer] Address [address] [place] [phone] Care Team Providers Care Primer Assembler Name Role Phone Gemini Mcmillan MD Primary Care Pro vider Reason for Visit * Reason Comments Care Coordination JULIA/BRAYDEN Zhang- Outreach-Agrees to participate Encounter Details Date Type Department Care Team (Latest Contact Info) Description 12/15/2024 Patient Outreach [facility] [address] [place] [phone] Gemini Mcmillan MD [address] [place] [phone] Care Coordination (BRAYDEN Butterfield- Outreach-Agrees to participate) Social History Tobacco Use Types Packs/Day Years [...] with others, in a hotel, in a nursing home, living outside on the street, on a [...] Progress Notes * Alexandra Green - 12/15/2024 4:48 PM EST CHW Alexandra Green, placed [facility]bound [facility] CM Maternity/CHW program services. Patient's name and was confirmed. Pt agrees to participate in program. Appt. for initial assessment scheduled for 12/30/2024 @ 10:00AM via telephone with CM Jannette Self RN. SDOH screening complete: Parent expressed in need of housing assistance as pt currently living with grandfather, and 1 yr old child, and needs her own space. Pt states does not receive any source of income and is currently unemployed. CHW sent text [facility] [employer] link via [email or web address] Kandy, and explained to patient how to complete and submit applicat ion. Pt to reach out to CHW should further assistance needed. Per patient she is currently seeing [facility] in [place], [place] for current . CHW reinforced direct contact information for any additional questions or concerns and extended clinic hours on Mondays and Wednesdays, and Walk-In Urgent Care Located in [facility] of [facility].Patient provided with after-hours line for [facility], , which offer night time triage serviceand option to transfer to neon installer provider if needed. Patient verbalizes understanding, and able torepeat back to fiction and nonfiction prose writer. documented in this encounter Plan of Treatment Upcoming Encounters Date Type Department Care Team (Late st Contact Info) Description 01/02/2025 11:15 AM EDT Office Visit [facility] [address] [place] [phone] Andreea Borges ANP [address] [place] [address] documented as of this encounter Visit Diagnoses Not on filedocumented in this encounter Additional Health Concerns Assessment Noted Time PHQ-9 Depression Total Score: 0 12/19/19 9:28 AM EST documented as of this encounter Care Teams Primer Assembler Relationship Specialty Start Date End Date Gemini Mcmillan MD [address] [place] [address] [phone] PCP - General Internal Medicine 12/24/23 documented as of this encounter
--- OUTSIDE RECORDS SUMMARY | 2024-12-20 01:50 | XMS_ITS | Encounter Summary ---
Author Organization [employer] Address [address] [place] [address] Care Team Providers Care Steel Grinder Name Role Phone Gemini Mcmillan MD Primary Care Pro vider Encounter Details Date Type Department Care Team (Latest Contact Info) Description 11/25/2024 Travel Social History Tobacco Use Types Packs/Day Years [...] AM EST documented as of this encounter Plan of Treatment Upcoming Encounters Date Type Department Care Team (Late st Contact Info) Description 01/02/2025 11:15 AM EDT Office Visit [facility] [address] [place], [place] [phone] Andreea Borges ANP [address] [place] [address] documented as of this encounter Visit Diagnoses Not on filedocumented in this encounter Additional Health Concerns Assessment Noted Time PHQ-9 Depression Total Score: 0 12/19/19 9:28 AM EST documented as of this encounter Care Teams Steel Grinder Relationship Specialty Start Date End Date Gemini Mcmillan MD [address] [place] [address] PCP - General Internal Medicine 12/24/23 documented as of this encounter
--- OUTSIDE RECORDS SUMMARY | 2024-12-20 01:50 | XMS_ITS | Clinical Summary ---
Author Organization [employer] Address [address] [facility] [address] [place] [address] Care Team Providers Care Blood Bank Assistant Name Role Phone Gemini Mcmillan MD Primary Care Pro vider Allergies No known active allergies Medications * This document contains information received from the source organization and may not represent a complete record from that organization. Ventolin HFA 108 (90 Base) MCG/ACT inhaler Inhale 1 puff every 6 (six) hours if needed for wheezing. 18 g 3 12/19/2023 Active levETIRAcetam (Keppra) 250 MG tabletIndication s:Seizure disorder (CMS/HCC),Witnes sed seizure-like activity (CMS/HCC) Take 1 tablet (250 mg) by mouth 2 times daily. 60 tablet 1 11/10/2024 Active Vit-Fe Fumarate-FA ( Vitamins) 28-0.8 MG tabletIndication s:Family Planning Take 1 tablet by mouth Once per day. 90 tablet 3 11/10/2024 Active Active Problems Problem Noted Date Diagnosed Date Severe anxiety with panic 11/25/2024 Assessment & Plan (11/25/2024 4:21 PM EST): During IBH Consult Marla presenting with excessive worry/anxiety, difficulty controlling worry, anxiety/worry associated to restlessness and/or feeling keyed-up/On edge , easily fatigued , difficulty concentrating and/or mind going blank , irritability, and sleep disturbance difficulty falling asleep and difficulty staying asleep , Fear , and sense of dread and At least one of the attacks has been followed by 1 month of Persistent concern/worry of panic attacks or their consequences , heart palpitations, dizziness and shortness of breath; for a period of 18+ mo, for most or all symptoms in the context of untreated anxiety and being a mom. Marla reported having anxiety since she was younger. Presentation of sxs are now connected with her transition to becoming a mother. Her oldest son is 2 y/o and she's expecting a second child. Pt has the support from her partner. She prefers to isolate from others; reports lack of social supports. clinician engaged patient with active/reflective listening. Reviewed and assessed for risk, current stressors and protective factors. Pt explored strategies she can use and incorporate self-care into daily routine. Pt was self-referred to [facility] for OP therapy and for medication management with [facility] provider, Herbert Blair. 14 weeks gestation of 11/10/2024 Seizure disorder 11/10/2024 Overweight 12/19/2023 Asthma 12/19/2023 Health care maintenance 12/19/2023 Comments Yes Encounters * This document contains information received from the source organization and may not represent a complete record from that organization. Date Type Department Care Team Description 12/20/2024 Orders Only GENERIC EXTERNAL DATA DEPARTMENT Provider, Generic External Data 12/15/2024 Patient Outreach [address] [address] Gemini Mcmillan MD Care Coordination ([facility] Raymundo- Outreach-Agrees to participate) 12/15/2024 Patient Outreach [address] [address] Gemini Mcmillan MD Care Coordination ([facility] Raymundo#1- HR Maternity Outreach) 12/15/[address] [address] Gemini Mcmillan MD Care Management ([facility] chart review) 11/25/2024 Travel 11/11/[address] [address] Luli Causey RN 11/10/2024 2:00 PM EST Office Visit [address] [address] Geoffrey Hadley ANP Seizure disorder (CMS/HCC) (Primary Dx); 14 weeks gestation of ; Witnessed seizure-like activity (CMS/HCC); Anxiety 11/10/2024 Telephone [facility] [address] [place], [place] [phone] Gemini Mcmillan MD Nurse Triage 11/07/2024 Telephone [facility] [address] [place] [address] Gemini Mcmlilan MD ER Follow-up from Last 3 Months [...] with others, in a hotel, in a custodial, living outside on the street, on a [...] Description 01/02/2025 11:15 AM EDT Office Visit [facility] [address] [place] [address] Geoffrey Hadley ANP [address] [place] [address] Health Maintenance Due Date Last Done Comments Chlamydia and Gonorrhea Screening 2001 HIV Screening 2001 Alcohol/Substance Use Screening 2013 Hepatitis A Vaccines (2 of 2 - 2-dose series) 08/20/2016 02/18/2016 Family Planning (PISQ) 2016 HPV Vaccines (1 - 3-dose series) 2016 Hepatitis C Screening 2019 Pneumococcal Vaccine: Pediatrics (0 to 5 Years) and At-Risk Patients (6 to 49) Years) (1 of 2 - PCV) 2020 Pap Smear 2022 COVID-19 Vaccine ( season) 2024 10/30/2022, 07/27/2022, 06/27/2022 Influenza Vaccine (#1) 2024 , 09/14/2020, 09/04/2019, Additional history exists Depression Screening 12/18/2024 12/19/2023, 12/19/19 24 Tobacco Screening 11/10/2025 11/10/2024 SDOH Screening 12/15/2025 12/15/2024 DTaP/Tdap/Td Vaccines (2 - Td or Tdap) [...] Diagnosis Comments CBC WITH AUTO DIFFERENTIAL Routine 12/20/2024 1:30 AM EST MR BRAIN WO CONTRAST STAT 11/11/2024 9:11 PM EST Seizure disorder (CMS/HCC) CBC WITH AUTO DIFFERENTIAL Routine 11/10/2024 3:03 PM EST Witnessed seizure-like activity (CMS/HCC) COMPREHENSIVE METABOLIC PANEL Routine 11/10/2024 3:03 PM EST Witnessed seizure-like activity (CMS/HCC) from Last 3 Months Results * (ABNORMAL) CBC auto differential (12/20/2024 1:30 AM EST) Only the most recent of2 resultswithin the time period is included. White Blood Count 10.1 4.8 - 10.8 X10*3/uL [facility] Red Blood Count 3.93(L) 4.20 - 5.50 X10*6/uL [facility] Hemoglobin 13.0 12.0 - 16.0 g/dl [facility] Hematocrit 36.5(L) 37.0 - 47.0 % [facility] Mean Corpuscular Volume 92.9 80.0 - 98.0 fL [facility] Mean Corpuscular Hemoglobin 33.1(H) 27.0 - 33.0 pg [facility] Mean Corpuscular HGB Conc 35.6(H) 31.0 - 35.0 g/dl [facility] Red Cell Distribution Width 12.9 11.0 - 16.0 % [facility] Platelet Count 226 160 - 400 X10*3/uL [facility] Mean Platelet Volume 10.0 9.4 - 12.3 fL [facility] Neutrophils Percent Auto 83.2(H) 45 - 73 % [facility] Imm Gran Pct Auto 0.5(H) 0.0 - 0.4 % [facility] Lymphocytes Percent Auto 8.9(L) 20 - 40 % [facility] Monocytes Percent Auto 6.0 2 - 11 % [facility] Eosinophils Percent Auto 1.3 0 - 4 % [facility] Basophils Percent Auto 0.1 0 - 2 % [facility] NRBC Pct Auto 0.0 0.0 - 0.2 /100WBC [facility] Neutrophils Absolute Auto 8.4(H) 2.0 - 8.3 x10*3/uL [facility] Imm Gran Abs Auto 0.05(H) 0.00 - 0.03 X10*3/uL [facility] Lymphocytes Absolute Auto 0.9(L) 1.2 - 4.9 X10*3/uL [facility] Monocytes Absolute Auto 0.6 0.1 - 1.2 X10*3/uL [facility] Eosinophils Absolute Auto 0.1 0.0 - 0.4 X10*3/uL [facility] Basophils Absolute Auto 0.0 0.0 - 0.2 X10*3/uL [facility] NRBC Abs Auto 0.000 0.0 - 0.012 X10*3/uL [facility] 12/20/2024 1:30 AM EST 12/20/2024 1:34 AM EST us Generic External Data Provider LAB BLOOD ORDERAB LES Final Result [facility] [address] [place] [address] [phone] * MR Brain w/o Contrast (11/11/2024 9:11 PM EST) Anatomical Region Laterality Modality Brain Magnetic Resonan ce 11/11/2024 9:11 PM EST Narrative 11/11/2024 9:12 PM EST ? [facility] ?[address] ?[place] [address] ? Magnetic Resonance Report ? Signed ? Patient: Marla Francis ? MR#: [id number] ? : 2000 ?Acct:[id number] ? Age/Sex: 24 / F ?ADM Date: 01/28/25 ? Loc: HO.MRI ? Attending Dr: Geoffrey Hadley NP ? Ordering Physician: GEOFFREY HADLEY NP ?? Date of Service: 11/11/24 ?? Procedure(s): MR head/brain wo con ?? Accession Number(s): [id number] ? cc: Gemini Mcmillan MD; GEOFFREY HADLEY NP ? CLINICAL HISTORY: seizure 11 03 24; seizure protocol please ??Last seizure was on 11/03/24, also it was the 2nd one in 5 years. Pt is 14 wks ? MR Brain without gadolinium ? Comparison: CT/SR - BRAIN WO IV CONTRAST [id number] - 03/13/17 22:24 EDT ? Findings: ?? The ventricles and subarachnoid spaces are normal in size and the ?? ventricles are normal in position. No midline shift or herniation. ?? Brain parenchyma is normal in signal intensity. No territorial infarct. ?? No restricted diffusion. ?? No focal mass lesion or mass effect. ?? No intra-axial or extra-axial hemorrhage. ?? The midline structures are grossly normal. ?? Flow voids are maintained within the major vessels at the base of the ?? brain. ? The orbits are normal. ?? The sinuses and mastoid air cells are clear. ?? No focal bone lesion. ? IMPRESSION: ?? No acute findings. Unremarkable unenhanced MRI of the brain. ? This document has been electronically signed by: April Don MD on ?? 11/11/2024 21:11:10 ? Dictated By: ?April Don MD ? Signed By: ?<Electronically signed by April Don MD in OV> ? 11/11/242110 ? DD/ 10 ? TD/TT: 11/11/242110 ? Fisher Lampara Net: ? Procedure Note Sonali, Image - 11/11/2024 [place] [address] Magnetic Resonance Report Signed Patient: Marla Francis MR#: [id number] : 2000Acct:[id number] Age/Sex: 24 / FADM Date: 11/11/24 Loc: HO.MRI Attending Dr: Geoffrey Hadley NP Ordering Physician: GEOFFREY HADLEY NP Date of Service: 11/11/24 Procedure(s): MR head/brain wo con Accession Number(s): [id number] cc: Gemini Mcmillan MD; GEOFFREY HADLEY NP CLINICAL HISTORY: seizure 11 03 24; seizure protocol please Last seizurewas on 11/03/24, also it was the 2nd one in 5 years. Pt is 14 wks MR Brain without gadolinium Comparison: CT/SR - BRAIN WO IV CONTRAST [id number] - 03/13/17 22:24 EDT Findings: The ventricles and subarachnoid spaces are normal in size and the ventricles are normal in position. No midline shift or herniation. Brain parenchyma is normal in signal intensity. No territorial infarct. No restricted diffusion. No focal mass lesion or mass effect. No intra-axial or extra-axial hemorrhage. The midline structures are grossly normal. Flow voids are maintained within the major vessels at the base of the brain. The orbits are normal. The sinuses and mastoid air cells are clear. No focal bone lesion. IMPRESSION: No acute findings. Unremarkable unenhanced MRI of the brain. This document has been electronically signed by: April Don MD on 11/11/2024 21:11:10 Dictated By: April Don MD Signed By: <Electronically signed by April Don MD in OV> 11/11/242110 DD/ 10 TD/TT: 11/11/242110 Fisher Lampara Net: [facility] MRI PROCEDURES Final Result * (ABNORMAL) Comprehensive Metabolic Panel (11/10/2024 3:03 PM EST) Sodium 139 135 - 145 mmol/L [facility] Potassium 3.7 3.3 - 5.1 mmol/L [facility] Chloride 109(H) 96 - 108 mmol/L [facility] Carbon Dioxide 23 22 - 29 mmol/L [facility] Anion Gap 11(L) 12 - 20 [facility] Urea Nitrogen (BUN) 8(L) 9 - 16 mg/dL [facility] Creatinine, Serum 0.72 0.5 - 1.4 mg/dL [facility] Estimated Glomerular Filt Rate >60 [facility] Comment:Chronic Kidney Disea se: Estimated GFR < 60 mL/min/[id number] Kidney Disease: Estimated GFR < 15 mL/min/1.73m2 Glucose 78 60 - 115 mg/dL [facility] Calcium 9.8 8.4 - 10.2 mg/dL [facility] Bilirubin, Total 0.7 0.0 - 1.0 mg/dL [facility] Aspartate Amino Transferase 19 5 - 31 U/L [facility] Alanine Aminotransferase 11 0 - 31 U/L [facility] Total Protein 7.6 6.5 - 8.0 g/dL [facility] Albumin Level 4.0 3.5 - 5.0 g/dL [facility] Alkaline Phosphatase 40 39 - 117 U/L [facility] Blood Venous blood specimen / Unknown 11/10/2024 3:03 PM EST 11/10/2024 4:23 PM EST us Geoffrey MOONEY LAB BLOOD ORDERABLES Final Resul t [facility] [address] [place] [address] [phone] from Last 3 Months Insurance [facility] C3 Care Teams Blood Bank Assistant Relationship Specialty Start Date End Date Gemini Mcmillan MD [address] [place] [address] PCP - General Internal Medicine 12/24/23
--- OUTSIDE RECORDS SUMMARY | 2024-12-20 01:50 | XMS_ITS | Encounter Summary ---
Author Organization [employer] Address [address] [facility] [address] [place] [address] Care Team Providers Care Coach Mechanic Name Role Phone Gemini Mcmillan MD Primary Care Pro vider Encounter Details Date Type Department Care Team ([facility] Contact Info) Description 12/20/2024 Orders Only GENERIC EXTERNAL DATA DEPARTMENT Provider, Generic External Data Social History Tobacco Use Types Packs/Day Years [...] with others, in a hotel, in a alf, living outside on the street, on a [...] 01/02/2025 11:15 AM EDT Office Visit [facility] [address] [place] [address] Andreea Borges, ANP [address] [place], [place] [phone] documented as of this encounter Procedures Procedure Name Priority Date/Time Associated Diagnosis Comments CBC WITH AUTO DIFFERENTIAL Routine 12/20/2024 1:30 AM EST documented in this encounter Results * (ABNORMAL) CBC auto differential (12/20/2024 1:30 AM EST) White Blood Count 10.1 4.8 - 10.8 X10*3/uL [facility] Red Blood Count 3.93(L) 4.20 - 5.50 X10*6/uL [facility] Hemoglobin 13.0 12.0 - 16.0 g/dl [facility] Hematocrit 36.5(L) 37.0 - 47.0 % [facility] Mean Corpuscular Volume 92.9 80.0 - 98.0 fL [facility] Mean Corpuscular Hemoglobin 33.1(H) 27.0 - 33.0 pg [facility] Mean Corpuscular HGB Conc 35.6(H) 31.0 - 35.0 g/dl [facility] Red Cell Distribution Width 12.9 11.0 - 16.0 % [facility] Platelet Count 226 160 - 400 X10*3/uL [facility] Mean Platelet Volume 10.0 9.4 - 12.3 fL [facility] Neutrophils Percent Auto 83.2(H) 45 - 73 % [facility] Imm Gran Pct Auto 0.5(H) 0.0 - 0.4 % [facility] Lymphocytes Percent Auto 8.9(L) 20 - 40 % [facility] Monocytes Percent Auto 6.0 2 - 11 % [facility] Eosinophils Percent Auto 1.3 0 - 4 % [facility] Basophils Percent Auto 0.1 0 - 2 % [facility] NRBC Pct Auto 0.0 0.0 - 0.2 /100WBC [facility] Neutrophils Absolute Auto 8.4(H) 2.0 - 8.3 x10*3/uL [facility] Imm Gran Abs Auto 0.05(H) 0.00 - 0.03 X10*3/uL [facility] Lymphocytes Absolute Auto 0.9(L) 1.2 - 4.9 X10*3/uL [facility] Monocytes Absolute Auto 0.6 0.1 - 1.2 X10*3/uL [facility] Eosinophils Absolute Auto 0.1 0.0 - 0.4 X10*3/uL [facility] Basophils Absolute Auto 0.0 0.0 - 0.2 X10*3/uL [facility] NRBC Abs Auto 0.000 0.0 - 0.012 X10*3/uL [facility] 12/20/2024 1:30 AM EST 12/20/2024 1:34 AM EST us Generic External Data Provider LAB BLOOD ORDERAB LES Final Result [facility] [address] [place] [address] [phone] documented in this encounter Visit Diagnoses Not on filedocumented in this encounter Additional Health Concerns Assessment Noted Time PHQ-9 Depression Total Score: 0 12/19/19 24 9:28 AM EST documented as of this encounter Care Teams Coach Mechanic Relationship Specialty Start Date End Date Gemini Mcmillan MD [address] [place] [phone] PCP - General Internal Medicine 12/24/23 documented as of this encounter
[2024-12-20 01:55] LABS: Alanine Aminotransferase 11 U/L (0-31); Albumin Level 3.8 g/dL (3.5-5.0); Alkaline Phosphatase 43 U/L (39-117); Anion Gap 12 (12-20); Aspartate Amino Transferase 22 U/L (5-31); Bilirubin Total 0.8 mg/dL (0.0-1.0); Blood Urea Nitrogen 7 mg/dL (9-16); Calcium 9.1 mg/dL (8.4-10.2); Carbon Dioxide 22 mmol/L (22-29); Chloride 107 mmol/L (96-108); Creatinine Clr Calc Pharmacy 139.9; Estimated Glomerular Filt Rate > 60; Glucose Random 104 mg/dL (60-115); Sodium 137 mmol/L (135-145); Total Protein 7.6 g/dL (6.5-8.0)
[2024-12-20 02:07] LABS: Influenza A PCR NEGATIVE (Negative); Influenza B PCR NEGATIVE (Negative); Resp Syncy Virus RNA Qual PCR NEGATIVE (Negative); SARS COV2 PCR INHOUSE NEGATIVE (Negative)
[2024-12-20 03:05] VITALS: BP 102/54; PULSE 86; RESP 18; TEMP 36.8; O2SAT 99
[2024-12-20] MEDS: Metoclopramide HCl 10 MG/2 ML VIAL IVPUSH (03:07)
[2024-12-20 03:45] LABS: Appearance Urine Clear; Color Urine Dark Yellow; Glucose Urine UA Negative (Negative); Leukocyte Esterase Urine Trace (Negative); Nitrite Urine Negative (Negative); PH 6.5 (5.0-9.0); Specific Gravity - Urine 1.025 (1.005-1.025); UMIC TRIGGER UACC YES; Urine Blood Negative (Negative); Urine Ketones Negative (Negative); Urine Protein Trace mg/dL (Neg-Trace)
[2024-12-20 03:52] LABS: Bacteria Urine 2+ (None Seen); Hyaline Casts Urine 0-2 /LPF (0-2); RBC Urine 0-2 /HPF (0-2); UACC Culture Trigger YES
[2024-12-20] MEDS: Nitrofurantoin Monohyd/M-Cryst 100 MG CAPSULE PO (04:07)
[2024-12-20 04:13] VITALS: BP 102/54; PULSE 86; RESP 18; TEMP 36.8; O2SAT 99
== END 2024-12-20 04:13 | disposition home or self-care (01) ==
PROVIDERS: Emergency Provider Internal Medicine; PCP Nurse Practitioner Primary Care
DX: O21.9 Vomiting of pregnancy, unspecified (principal); O23.42 Unspecified infection of urinary tract in pregnancy, second trimester; N39.0 Urinary tract infection, site not specified; Z3A.20 20 weeks gestation of pregnancy; Z03.818 Encounter for observation for suspected exposure to other biological agents ruled out
CPT/HCPCS: 0241U; 80053; 81001; 85025; 87086; 96361; 96374; 96375; 99284; J2405; J2765

== ENCOUNTER 2025-02-17 02:39 | Emergency (ER) | payer MEDICAID, SELFPAY ==
[2025-02-17 02:41] VITALS: BP 121/76; PULSE 100; RESP 20; TEMP 36.6; O2SAT 98; BMI 31.2
[2025-02-17 03:34] LABS: Influenza A PCR NEGATIVE (Negative); Influenza B PCR NEGATIVE (Negative); Resp Syncy Virus RNA Qual PCR NEGATIVE (Negative); SARS COV2 PCR INHOUSE NEGATIVE (Negative)
--- NOTE | 2025-02-17 04:25 | MHC.EDTECH ---
pt wants to leave because she has been waiting for too long- 19 min
== END 2025-02-17 04:36 | disposition left against medical advice (07) ==
PROVIDERS: Emergency Provider Emergency Medicine; PCP Internal Medicine Endocrinology, Diabetes & Metabolism
DX: R05.9 Cough, unspecified (principal); Z03.818 Encounter for observation for suspected exposure to other biological agents ruled out; Z53.21 Procedure and treatment not carried out due to patient leaving prior to being seen by health care provider
CPT/HCPCS: 0241U; 99281

== ENCOUNTER 2025-07-22 06:28 | Emergency (ER) | payer MEDICAID, SELFPAY ==
[2025-07-22 06:30] VITALS: BP 124/68; PULSE 68; RESP 16; TEMP 36.7; O2SAT 99; BMI 32.9
[2025-07-22 06:52] LABS: Hematocrit 33.5 % (37.0-47.0); Hemoglobin 11.4 g/dl (12.0-16.0); Imm Gran Abs Auto 0.01 X10*3/uL (0.00-0.03); Imm Gran Pct Auto 0.2 % (0.0-0.4); Lymphocytes Absolute Auto 2.0 X10*3/uL (1.2-4.9); MANUAL DIFF FLAG NO; Mean Corpuscular HGB Conc 34.0 g/dl (31.0-35.0); Mean Corpuscular Hemoglobin 31.2 pg (27.0-33.0); Mean Corpuscular Volume 91.8 fL (80.0-98.0); NRBC Abs Auto 0.000 X10*3/uL (0.0-0.012); NRBC Pct Auto 0.0 /100WBC (0.0-0.2); Platelet Count 286 X10*3/uL (160-400); Red Blood Count 3.65 X10*6/uL (4.20-5.50); White Blood Count 6.0 X10*3/uL (4.8-10.8)
[2025-07-22 07:11] LABS: Alanine Aminotransferase 29 U/L (0-31); Albumin Level 3.9 g/dL (3.5-5.0); Alkaline Phosphatase 46 U/L (39-117); Anion Gap 11 (12-20); Aspartate Amino Transferase 20 U/L (5-31); Blood Urea Nitrogen 13 mg/dL (9-16); Calcium 8.6 mg/dL (8.4-10.2); Carbon Dioxide 26 mmol/L (22-29); Chloride 109 mmol/L (96-108); Creatinine Clr Calc Pharmacy 123.7; Estimated Glomerular Filt Rate > 60; Lipase 18 U/L (8-78); Potassium 3.9 mmol/L (3.3-5.1); Sodium 142 mmol/L (135-145); Total Protein 6.6 g/dL (6.5-8.0)
--- NOTE | 2025-07-22 07:26 | ED_ITS ---
HPI - Abdominal Pain General Chief Complaint: Abdominal Pain Stated Complaint: abd pain Time Seen by Provider: 07/22/25 07:01 Source: patient Mode of arrival: ambulatory Limitations: no limitations History of Present Illness ED Provider: HPI narrative: 24-year-old woman with a history of gastritis, states has been better in the past 2 years, she is 3 months , states has been drinking a lot of coffee, yesterday reheated chicken tenderness and developed epigastric abdominal pain radiating bilateral sub diaphoretic areas to the back without nausea or vomiting fevers or chills chest pain or shortness of breath. Currently with irregular diet, no vaginal bleeding or discharge. Related Data Previous Rx's ?Medication ?Instructions ?Recorded omeprazole 40 mg capsule,delayed 40 mg PO DAILY #14 ca ps 07/23/20 release ondansetron HCl 4 mg tablet 4 mg PO Q6H PRN nausea and 07/23/20 (Zofran) vomiting #7 tabs ondansetron 4 mg disintegrating 4 mg PO Q6H PRN nausea and 11/04/21 tablet vomiting #7 tabs acetaminophen 500 mg tablet 500 mg PO Q6H PRN pain or fever 01/03/22 (Tylenol Extra Strength) #20 tabs lidocaine 5 % topical patch 1 patch topical DAILY PRN pain #30 01/03/22 (Lidoderm) ea naproxen 500 mg tablet 500 mg PO BID PRN pain 10 da ys #20 01/03/22 tabs ondansetron HCl 4 mg tablet 4 mg PO Q8H PRN nausea and 01/18/22 vomiting 4 days #12 tabs metronidazole 500 mg tablet 500 mg PO BID 7 days #14 t abs 06/22/22 acetaminophen 500 mg tablet 500 mg PO Q6H PRN fever or pain 08/04/22 (Tylenol Extra Strength) #14 tabs cyclobenzaprine 5 mg tablet 5 mg PO Q8H PRN pain (scal e score 08/04/22 7-10) 5 days #14 tabs lidocaine 5 % topical patch 1 patch topical DAILY PRN pain #30 08/04/22 (Lidoderm) ea naproxen 500 mg tablet 500 mg PO BID PRN pain 10 da ys #20 08/04/22 tabs acetaminophen 500 mg tablet 1,000 mg (2 x 500 mg) PO Q ID PRN 08/24/22 (Tylenol Extra Strength) fever or pain #14 tabs ibuprofen 800 mg tablet 800 mg PO Q8H PRN pain #14 t abs 08/24/22 pyridoxine (vitamin B6) 25 mg 25 mg PO TID 30 days #90 tabs 11/18/22 tablet cimetidine 800 mg tablet 800 mg PO BID #60 tabs 01/02 metoclopramide HCl 10 mg tablet 10 mg PO Q6H PRN nause a and 01/02/23 (Reglan) vomiting #20 tabs cephalexin 500 mg capsule 500 mg PO TID 7 days #21 cap s 01/28/23 cefuroxime axetil 250 mg tablet 250 mg PO BID 7 days # 14 tabs 06/22/23 ondansetron 4 mg disintegrating 4 mg PO Q6-8H PRN naus ea and 06/22/23 tablet vomiting #10 tabs ibuprofen 600 mg tablet 600 mg PO Q6H PRN fever or p ain 08/11/23 #20 tabs ondansetron 4 mg disintegrating 4 mg PO DAILY PRN naus ea and 01/13/24 tablet vomiting #7 tabs nitrofurantoin 100 mg PO BID 7 days #14 cap s 12/20/24 monohydrate/macrocrystals 100 mg capsule (Macrobid) ondansetron 4 mg disintegrating 4 mg PO Q6-8H PRN naus ea and 12/20/24 tablet vomiting #20 tabs famotidine 20 mg tablet 20 mg PO BEDTIME #30 tabs sucralfate 1 gram tablet (Carafate) 1 g PO Q6H 7 days #28 tabs 07/22/25 Allergies Allergy/AdvReac Type Severity Reaction Status Date / Time No Known Allergies Allergy Verified 07/22/25 06:31 Review of Systems Constitutional: Reports as per [facility] Past Medical History Medical History Syncope Asthma Social History Social History Alcohol intake: never Substance Use Type: Marijuana Do you have a plan to hurt others: No Plan Physical Exam ED Vital Signs: Vital Signs - 24 hr 07/22/25 06:30 Temperature 98.1 F Pulse Rate 68 Respiratory Rate 16 Blood Pressure 124/68 Pulse Oximetry 99 Oxygen Delivery Method Room Air BMI result Body Mass Index 32.9 Const Other: General: ?Appears of stated age ? ?CV: RRR, no obvious murmurs appreciated ? ?Resp: ?No wheezing rales rhonchi no stridor moving air well ? Abd: ?Bowel sounds are present, minimal epigastric tenderness no rebound no rigidity, negative Rovsing's, negative Simmons's sign ? ?MSK: FROM, strength 5/5 all extremities ? Skin: Warm, dry, intact, ? ?Neuro: ?Alert and oriented x3, moving upper and lower extremities symmetrically, no obvious facial asymmetry noted, cranial nerves 2-12 intact Medical Decision Making Medical Decision Making [facility] Narrative: 7:28 AM 07/22/2025 (Dr. Michael Oneal): His history of gastritis, currently poor diet, blood work without any evidence for biliary pancreatic etiology, abdominal exam with isolated epigastric tenderness negative Simmons's sign no tenderness in the lower quadrants to suspect uterine ovarian pathology, discussed dietary changes, we will prescribe medications, she can follow up with the PCP. Did not feel further imaging is indicated such as an ultrasound of the gallbladder etc. Differential Diagnosis Differential Diagnoses: The differential diagnosis associated with the presentation includes (Cholecystitis, pancreatitis, hepatitis, gastritis, cholangitis, choledocholithiasis, SBO, ACS) Admission/Observation Consideration of admission/observation: Escalation of care including admission/observation considered Lab Data [facility] Lab Attestation statement: I reviewed the patient's lab results. 07/22/25 06:47 07/22/25 06:47 Labs: Lab Results 07/22/25 Range/Units 06:47 WBC 6.0 (4.8-10.8) X10*3/uL RBC 3.65 L (4.20-5.50) X10*6/uL Hgb 11.4 L (12.0-16.0) g/dl Hct 33.5 L (37.0-47.0) % MCV 91.8 (80.0-98.0) fL MCH 31.2 (27.0-33.0) pg MCHC 34.0 (31.0-35.0) g/dl RDW 13.4 (11.0-16.0) % Plt Count 286 D (160-400) X10*3/uL MPV 10.0 (9.4-12.3) fL Immature Gran % (Auto) 0.2 (0.0-0.4) % Neut % (Auto) 48.9 (45-73) % Lymph % (Auto) 33.9 (20-40) % [place] % (Auto) 8.2 (2-11) % Eos % (Auto) 8.5 H (0-4) % Baso % (Auto) 0.3 (0-2) % Lymph # (Auto) 2.0 (1.2-4.9) X10*3/uL [place] # (Auto) 0.5 (0.1-1.2) X10*3/uL Eos # (Auto) 0.5 H (0.0-0.4) X10*3/uL Baso # (Auto) 0.0 (0.0-0.2) X10*3/uL Abs Immat Gran (auto) 0.01 (0.00-0.03) X10*3/uL Absolute Neuts (auto) 2.9 (2.0-8.3) x10*3/uL Absolute Nucleated RBC 0.000 (0.0-0.012) X10*3/uL Nucleated RBC % (auto) 0.0 (0.0-0.2) /100WBC Sodium 142 (135-145) mmol/L Potassium 3.9 (3.3-5.1) mmol/L Chloride 109 H (96-108) mmol/L Carbon Dioxide 26 (22-29) mmol/L Anion Gap 11 L (12-20) BUN 13 (9-16) mg/dL Creatinine 0.70 (0.5-1.4) mg/dL Estim Creat Clear Calc 123.7 Estimated GFR > 60 Random Glucose 95 (60-115) mg/dL Calcium 8.6 (8.4-10.2) mg/dL Total Bilirubin 0.5 (0.0-1.0) mg/dL AST 20 (5-31) U/L ALT 29 (0-31) U/L Alkaline Phosphatase 46 (39-117) U/L Total Protein 6.6 (6.5-8.0) g/dL Albumin 3.9 (3.5-5.0) g/dL Lipase 18 (8-78) U/L Beta HCG, Quant < 2 mIU/mL Tests considered The following testing was considered but not selected: Gallbladder ultrasound Prescription Management I considered prescription management with: Pain Medication Discharge Plan Discharge Clinical Impression: Abdominal pain, epigastric Patient Disposition: Home, Self-Care Instructions: Abdominal Pain (ED) Additional Instructions: Please make sure to eat on regular basis, have oatmeal in the morning, take famotidine as prescribed, please do not drink coffee and then empty stomach and minimize to 2 cups of coffee a day Your blood work is reassuring without any evidence for involvement of the gallbladder or liver or pancreas For the next 1 week take Carafate 20 minutes before any meal and start famotidine and continue with famotidine, follow up with the PCP if your symptoms do not improve you may need additional testing for H pylori, endoscopy referral to GI any worsening issues or concerns come back to the ER Prescriptions: New sucralfate [Carafate] 1 gram tablet 1 g PO Q6H 7 Days Qty: 28 0RF famotidine 20 mg tablet 20 mg PO BEDTIME Qty: 30 0RF No Action ondansetron HCl [Zofran] 4 mg tablet 4 mg PO Q6H PRN (Reason: nausea and vomiting) Qty: 7 0RF omeprazole 40 mg capsule,delayed release(DR/EC) 40 mg PO DAILY Qty: 14 0RF ondansetron 4 mg tablet,disintegrating 4 mg PO Q6H PRN (Reason: nausea and vomiting) Qty: 7 0RF ondansetron HCl 4 mg tablet 4 mg PO Q8H PRN (Reason: nausea and vomiting) 4 Days Qty: 12 0RF metronidazole 500 mg tablet 500 mg PO BID 7 Days Qty: 14 0RF acetaminophen [Tylenol Extra Strength] 500 mg tablet 500 mg PO Q6H PRN (Reason: fever or pain) Qty: 14 0RF naproxen 500 mg tablet 500 mg PO BID PRN (Reason: pain) 10 Days Qty: 20 0RF cyclobenzaprine 5 mg tablet 5 mg PO Q8H PRN (Reason: pain (scale score 7-10)) 5 Days Qty: 14 0RF lidocaine [Lidoderm] 5 % adhesive patch,medicated 1 patch topical DAILY MDD remove after 12 hours PRN (Reason: pain) Qty: 30 0RF Rx Instructions: leave on most painful area for up to 12 hrs acetaminophen [Tylenol Extra Strength] 500 mg tablet 500 mg PO Q6H PRN (Reason: pain or fever) Qty: 20 0RF lidocaine [Lidoderm] 5 % adhesive patch,medicated 1 patch topical DAILY MDD remove after 12 hours PRN (Reason: pain) Qty: 30 0RF Rx Instructions: leave on most painful area for up to 12 hrs naproxen 500 mg tablet 500 mg PO BID PRN (Reason: pain) 10 Days Qty: 20 0RF ibuprofen 800 mg tablet 800 mg PO Q8H PRN (Reason: pain) Qty: 14 0RF acetaminophen [Tylenol Extra Strength] 500 mg tablet 1,000 mg PO QID PRN (Reason: fever or pain) Qty: 14 0RF pyridoxine (vitamin B6) 25 mg tablet 25 mg PO TID 30 Days Qty: 90 0RF cimetidine 800 mg tablet 800 mg PO BID Qty: 60 0RF Rx Instructions: administer with meals metoclopramide HCl [Reglan] 10 mg tablet 10 mg PO Q6H PRN (Reason: nausea and vomiting) Qty: 20 0RF cefuroxime axetil 250 mg tablet 250 mg PO BID 7 Days Qty: 14 0RF ondansetron 4 mg tablet,disintegrating 4 mg PO Q6-8H PRN (Reason: nausea and vomiting) Qty: 10 0RF ibuprofen 600 mg tablet 600 mg PO Q6H PRN (Reason: fever or pain) Qty: 20 0RF ondansetron 4 mg tablet,disintegrating 4 mg PO DAILY PRN (Reason: nausea and vomiting) Qty: 7 0RF ondansetron 4 mg tablet,disintegrating 4 mg PO Q6-8H PRN (Reason: nausea and vomiting) Qty: 20 0RF nitrofurantoin monohyd/m-cryst [Macrobid] 100 mg capsule 100 mg PO BID 7 Days Qty: 14 0RF Rx Instructions: must administer with a meal/food cephalexin 500 mg capsule 500 mg PO TID 7 Days Qty: 21 0RF Referrals: [facility] [Primary Care Provider, Medical] - 2 weeks Clinical Impression: Abdominal pain, epigastric Print Language: German
--- OUTSIDE RECORDS SUMMARY | 2025-07-22 07:39 | XMS_ITS | Clinical Summary ---
Author Organization [employer] Address [address] [facility] [address] [place] [address] Care Team Providers Care Senior Erp Consultant Name Role Phone Gemini Mcmillan MD Primary Care Pro vider Allergies No known active allergies Medications * This document contains information received from the source organization and may not represent a complete record from that organization. levETIRAcetam (Keppra) 250 MG tabletIndication s:Seizure disorder (CMS/HCC) (HCC),Witnessed seizure-like activity (CMS/HCC) (HCC) Take 1 tablet (250 mg) by mouth 2 times daily. 60 tablet 1 5 Active Vit-Fe Fumarate-FA ( Vitamins) 28-0.8 MG tabletIndication s:Family Planning Take 1 tablet by mouth Once per day. 90 tablet 3 5 026 Active Ventolin HFA 108 (90 Base) MCG/ACT inhaler Inhale 1 puff every 6 (six) hours if needed for wheezing. 18 g 3 5 Active Spacer/Aero-Hold ing Chambers (OptiChamber [place]) misc 1 each every 4 (four) hours if needed (asthma). 1 each 5 Active albuterol (2.5 MG/3ML) 0.083% nebulizer solution Take 3 mL (2.5 mg) by nebulization every 6 (six) hours if needed for wheezing or shortness of breath. 75 mL 1 5 026 Active fluticasone (Flonase Allergy Relief) 50 MCG/ACT nasal spray Administer 1 spray into each nostril Once per day. Shake gently. Before first use, prime pump. After use, clean tip and replace cap. 16 g 5 026 Active fluticasone (Flonase) 50 MCG/ACT nasal sprayIndications :Flu-like symptoms Administer 1-2 sprays into each nostril Once per day. Shake gently. Before first use, prime pump. After use, clean tip and replace cap. 16 g 5 026 Active albuterol 108 (90 Base) MCG/ACT inhalerIndicatio ns:Mild intermittent asthma, unspecified whether complicated Inhale 2 puffs every 4 (four) hours if needed for wheezing. 18 g 1 5 026 Active loratadine (Claritin) 10 MG tabletIndication s:Flu-like symptoms Take 1 tablet (10 mg) by mouth Once per day. 30 tablet 5 025 Active Active Problems Problem Noted Date Diagnosed Date Flu-like symptoms 06/12/2025 Assessment & Plan (06/12/2025 3:40 PM EDT): Advised to drink plenty of fluids and rest I will prescribe Flonase and loratadine She may take acetaminophen as needed Severe anxiety with panic 11/25/2024 Assessment & [...] into daily routine. Pt was self-referred to [facility] for OP therapy and for medication management with [facility] provider, Herbert Blair. 14 weeks gestation of 11/10/2024 Seizure disorder (CMS/HCC) 11/10/2024 Overweight 12/19/2023 Asthma 12/19/2023 Assessment & Plan (06/12/2025 3:40 PM EDT): I will refill her albuterol inhaler Health care maintenance 12/19/2023 Resolved Problems Problem Noted Date Diagnosed Date Resolved Date Viral upper respiratory tract infection 06/12/2025 06/12/2025 Encounters Date Type Department Care Team Description 07/16/2025 Telephone [facility] [address] [place] [phone] Gemini Mcmillan MD Nurse Triage 06/12/2025 2:20 PM EDT Office Visit [facility] [address] [place] [address] [phone] Gemini Alexandra MD Flu-like symptoms (Primary Dx); Mild intermittent asthma, unspecified whether complicated 06/12/2025 Travel 05/28/2025 Patient Outreach [address] [phone] Gemini Mcmillan MD Care Coordination ([facility] Raymundo#2- Attempt to R/S missed initial assessment appt_ declined to participate) 05/22/2025 Patient Outreach [address] [phone] Gemini Mcmillan MD Care Coordination ([facility] Raymundo#1- Attempt to R/S missed Initial assessment appt-LVM) 05/12/[address] [phone] Gemini Mcmillan MD Care Management ([facility] initial assessment-lvm) 05/11/2025 Patient Outreach [facility] [address] [place] [address] Gemini Mcmillan MD Care Coordination ([facility] Baker-R/S [place] appt/resources) 05/11/2025 Patient Outreach [facility] [address] [place] [address] Gemini Mcmillan MD Transition Of Care (Tcm) (HDF unscheduled) 05/04/2025 Patient Outreach [facility] [address] [place] [address] Gemini Mcmillan MD Care Coordination ([facility] Baker#5-Attempt to R/S missed IA-VM) from Last 3 Months Immunizations Immunization Administration Dates Next Due Hep A, ped/adol, [...] with others, in a hotel, in a retirement, living outside on the street, on a [...] Access Q2 Not on file 12/15/2024 Comments No Sex and Gender Information Value Date Recorded Sex Assigned at Female 05/09/2023 1:20 PM EDT Legal Sex Female 1:19 PM EDT Gender Identity Female 05/09/2023 1:20 PM EDT Sexual Orientation Straight 12/19/2023 9: 45 AM EST Last Filed Vital Signs Vital Sign Reading Time Taken Comments Blood Pressure 110/68 06/12/2025 2:24 PM EDT Pulse 75 06/12/2025 2:24 PM EDT Temperature 36.8 C (98.2 F) 06/12/2025 2:24 PM EDT Respiratory Rate 18 06/12/2025 2:24 PM EDT Oxygen Saturation 99% 06/12/2025 2:24 PM EDT Inhaled Oxygen Concentration - - Weight 81.2 kg (179 lb) 06/12/2025 2:24 PM EDT Height 153.2 cm (5' 0.3 ) 12/19/2023 9:25 AM EST Body Mass Index 34.61 12/19/2023 9:25 AM EST Plan of Treatment Health Maintenance Due Date Last Done Comments Chlamydia and Gonorrhea Screening 2001 HIV Screening 2001 Disability Screening 2001 Alcohol/Substance Use Screening 2013 Hepatitis A Vaccines (2 of 2 - 2-dose series) 08/20/2016 02/18/2016 Family Planning (PISQ) 2016 HPV Vaccines (1 - 3-dose series) 2016 Hepatitis C Screening 2019 Pneumococcal Vaccine: Pediatrics (0 to 5 Years) and At-Risk Patients (6 to 49) Years (1 of 2 - PCV) 2020 Pap Smear 2022 Depression Screening 12/18/2024 12/19/2023, 12/19/19 24 COVID-19 Vaccine ( season) 2025 10/30/2022, 07/27/2022, 06/27/2022 Influenza Vaccine (#1) 2025 , 09/14/2020, 09/04/2019, Additional history exists SDOH Screening 12/15/2025 12/15/2024 Tobacco Screening 06/12/2026 06/12/2025 DTaP/Tdap/Td Vaccines (3 - Td or Tdap) 02/27/2035 02/27/2025, 04/20/2023 Zoster Vaccines (1 of 2) 2051 RSV Patients and Patients Aged 60 years or older (1 - 1-dose 75+ series) 2076 Meningococcal Vaccine Completed 08/28/2018 Meningococcal B Vaccine Completed 09/14/2020, 09/04 Hepatitis B Vaccines Completed 01/27/2021, 09/14/2020, 09/19/2019 [...] Diagnosis Comments CBC WITH AUTO DIFFERENTIAL Routine 07/22/2025 6:47 AM EDT HCG, TOTAL, QN Routine 07/22/2025 6:47 AM EDT LIPASE Routine 07/22/2025 6:47 AM EDT COMPREHENSIVE METABOLIC PANEL Routine 07/22/2025 6:47 AM EDT POCT RAPID STREP A Routine 06/12/2025 2: 29 PM EDT Flu-like symptoms POCT INFLUENZA A (ID NOW RAPID MOLECULAR) Routine 06/12/2025 2:28 PM EDT Flu-like symptoms POCT RAPID STREP A Routine 06/12/2025 2: 27 PM EDT Flu-like symptoms POCT INFLUENZA B (ID NOW RAPID MOLECULAR) Routine 06/12/2025 2:27 PM EDT Flu-like symptoms POCT RAPID COVID ANTIGEN Routine 06/12/2025 2:26 PM EDT Flu-like symptoms from Last 3 Months Results * (ABNORMAL) CBC auto differential (07/22/2025 6:47 AM EDT) White Blood Count 6.0 4.8 - 10.8 X10*3/uL [facility] Red Blood Count 3.65(L) 4.20 - 5.50 X10*6/uL [facility] Hemoglobin 11.4(L) 12.0 - 16.0 g/dl [facility] Hematocrit 33.5(L) 37.0 - 47.0 % [facility] Mean Corpuscular Volume 91.8 80.0 - 98.0 fL [facility] Mean Corpuscular Hemoglobin 31.2 27.0 - 33.0 pg [facility] Mean Corpuscular HGB Conc 34.0 31.0 - 35.0 g/dl [facility] Red Cell Distribution Width 13.4 11.0 - 16.0 % [facility] Platelet Count 286 160 - 400 X10*3/uL [facility] Mean Platelet Volume 10.0 9.4 - 12.3 fL [facility] Neutrophils Percent Auto 48.9 45 - 73 % [facility] Imm Gran Pct Auto 0.2 0.0 - 0.4 % [facility] Lymphocytes Percent Auto 33.9 20 - 40 % [facility] Monocytes Percent Auto 8.2 2 - 11 % [facility] Eosinophils Percent Auto 8.5(H) 0 - 4 % [facility] Basophils Percent Auto 0.3 0 - 2 % [facility] NRBC Pct Auto 0.0 0.0 - 0.2 /100WBC [facility] Neutrophils Absolute Auto 2.9 2.0 - 8.3 x10*3/uL [facility] Imm Gran Abs Auto 0.01 0.00 - 0.03 X10*3/uL [facility] Lymphocytes Absolute Auto 2.0 1.2 - 4.9 X10*3/uL [facility] Monocytes Absolute Auto 0.5 0.1 - 1.2 X10*3/uL [facility] Eosinophils Absolute Auto 0.5(H) 0.0 - 0.4 X10*3/uL [facility] Basophils Absolute Auto 0.0 0.0 - 0.2 X10*3/uL [facility] NRBC Abs Auto 0.000 0.0 - 0.012 X10*3/uL [facility] 07/22/2025 6:47 AM EDT 07/22/2025 6:50 AM EDT us Generic External Data Provider LAB BLOOD ORDERAB LES Final Result [facility] [address] [place] [phone] * hCG, Total, Quantitative (07/22/2025 6:47 AM EDT) HCG Quantitative <2 mIU/mL [facility] Comment:Weeks post LMP Appro ximate hCG(Last Menstrual Period) Range (mIU/ml)3 - 4 weeks 9 - 1304 - 5 weeks 75 - 2,6005 - 6 weeks 850 - 20,8006 - 7 weeks 4000 - 100,2007 - 12 weeks 11,500 - 289,53337 - 16 weeks 18,300 - 137,82342 - 29 weeks (2nd trimester) 1,400 - 53,94376 - 41 weeks (3rd trimester) 940 - 60,000The Zuniga B- hCG assay is used for the early detection ofpregnancy; it cannot be used to diagnose any conditionunrelated to . If a B-hCG level is not supportedby the clinical evidence, results should be confirmed by analternative method (qualitative urine hCG, for example). 07/22/2025 6:47 AM EDT 07/22/2025 6:50 AM EDT Generic External Data Provider LAB BLOOD ORDERAB LES Final Result Performing Organization Address [facility] Co de Phone Number [facility] [address] [place] [phone] * Lipase (07/22/2025 6:47 AM EDT) Lipase 18 8 - 78 U/L [facility] 07/22/2025 6:47 AM EDT 07/22/2025 6:50 AM EDT Generic External Data Provider LAB BLOOD ORDERAB LES Final Result Performing Organization Address [facility] de Phone Number [facility] [address] [place] [phone] * (ABNORMAL) Comprehensive Metabolic Panel (07/22/2025 6:47 AM EDT) Sodium 142 135 - 145 mmol/L [facility] Potassium 3.9 3.3 - 5.1 mmol/L [facility] Chloride 109(H) 96 - 108 mmol/L [facility] Carbon Dioxide 26 22 - 29 mmol/L [facility] Anion Gap 11(L) 12 - 20 [facility] Urea Nitrogen (BUN) 13 9 - 16 mg/dL [facility] Creatinine, Serum 0.70 0.5 - 1.4 mg/dL [facility] Creatinine Clr Calc Pharmacy 123.7 [facility] Comment:Provided height and weight: 157.48 cm,81.647 kg.eGFR (calculated from the MDRD study equation) and eCrCl(calculated from the Cockcroft-Gault equation) are based ondifferent parameters and may not yield comparable results.If eCrCl result is absurd, please check patient'sheight/weight. Estimated Glomerular Filt Rate >60 [facility] Comment:Chronic Kidney Disea se: Estimated GFR < 60 mL/min/1.98r6Undjrw Kidney Disease: Estimated GFR < 15 mL/min/1.73m2 Glucose 95 60 - 115 mg/dL [facility] Calcium 8.6 8.4 - 10.2 mg/dL [facility] Bilirubin, Total 0.5 0.0 - 1.0 mg/dL [facility] Aspartate Amino Transferase 20 5 - 31 U/L [facility] Alanine Aminotransferase 29 0 - 31 U/L [facility] Total Protein 6.6 6.5 - 8.0 g/dL [facility] Albumin Level 3.9 3.5 - 5.0 g/dL [facility] Alkaline Phosphatase 46 39 - 117 U/L [facility] 07/22/2025 6:47 AM EDT 07/22/2025 6:50 AM EDT us Generic External Data Provider LAB BLOOD ORDERAB LES Final Result [facility] [address] [place] [phone] * POCT rapid strep A manually resulted (06/12/2025 2:29 PM EDT) Only the most recent of2 resultswithin the time period is included. Rapid Strep A Screen Negative Negative, None Detected Swab 06/12/2025 2:29 PM EDT Gemini Rolon MD POINT OF CARE TEST EN TER/EDIT ORDERABLES Final Result * Influenza A (ID NOW Rapid Molecular) (06/12/2025 2:28 PM EDT) Influenza A Negative Negative, Indeterminate [facility] Swab 06/12/2025 2:28 PM EDT Gemini Rolon MD POINT OF CARE TEST EN TER/EDIT ORDERABLES Final Result Performing Organization Address [facility]/ZIP Co de Phone Number [facility] [address] [place] [phone] * Influenza B (ID NOW Rapid Molecular) (06/12/2025 2:27 PM EDT) Influenza B Negative Negative, Indeterminate [facility] Swab 06/12/2025 2:27 PM EDT Gemini Rolon MD POINT OF CARE TEST EN TER/EDIT ORDERABLES Final Result Performing Organization Address [facility] Co de Phone Number [facility] [address] [place] [phone] * POCT Rapid COVID Ag (06/12/2025 2:26 PM EDT) Rapid COVID Ag Negative Swab 06/12/2025 2:26 PM EDT Gemini Rolon MD POINT OF CARE TEST EN TER/EDIT ORDERABLES Final Result from Last 3 Months Insurance [facility] C3 Care Teams Senior Erp Consultant Relationship Specialty Start Date End Date Gemini Mcmillan MD [address] [place] [phone] PCP - General Internal Medicine 12/24/23
[2025-07-22] MEDS: Magnesium Hydrox/Alum Hydrox 30 ML ORAL.SUSP PO (07:51)
[2025-07-22] MEDS: Lidocaine HCl Viscous 2 % 15 ML SOLUTION PO (07:51)
[2025-07-22 07:56] VITALS: BP 122/86; PULSE 55; RESP 12; TEMP 36.6; O2SAT 98
--- NOTE | 2025-07-22 07:58 | PC.NURSE ---
Pt reports she is worried about kidney stones, she has pain radiating to bilateral flanks, low back. Taking GI cocktail now.
[2025-07-22 08:00] VITALS: BP 122/86; PULSE 55; RESP 12; TEMP 36.6; O2SAT 98
[2025-07-22 08:09] VITALS: BP 122/86; PULSE 55; RESP 12; TEMP 36.6; O2SAT 98
== END 2025-07-22 08:11 | disposition home or self-care (01) ==
PROVIDERS: Emergency Provider Emergency Medicine
DX: R10.13 Epigastric pain (principal); Z87.19 Personal history of other diseases of the digestive system
CPT/HCPCS: 36415; 80053; 83690; 84702; 85025; 99283

== ENCOUNTER 2025-07-23 23:53 | Emergency (ER) | payer MEDICAID, SELFPAY ==
--- NOTE | ~2025-07-23 | XR_ITS ---
CLINICAL HISTORY: pain constipation 1 view abdomen Comparison: None provided Findings: Bowel-gas pattern is within normal limits. There is a moderate amount of stool in the colon greatest in the ascending and transverse colon. There is no evidence of bowel obstruction. No calcifications are seen within the regions of the kidneys or ureters. Impression: Bowel-gas pattern is within normal limits. This document has been electronically signed by: Delonte Laura MD on 07/24/2025 03:08:49
[2025-07-23 23:55] VITALS: BP 118/72; PULSE 83; RESP 18; TEMP 36.5; O2SAT 99; BMI 34.8
[2025-07-24 00:30] LABS: MANUAL DIFF FLAG NO
[2025-07-24 00:33] LABS: Hematocrit 35.7 % (37.0-47.0); Hemoglobin 11.8 g/dl (12.0-16.0); Imm Gran Abs Auto 0.01 X10*3/uL (0.00-0.03); Imm Gran Pct Auto 0.2 % (0.0-0.4); Lymphocytes Absolute Auto 2.5 X10*3/uL (1.2-4.9); Mean Corpuscular HGB Conc 33.1 g/dl (31.0-35.0); Mean Corpuscular Hemoglobin 30.6 pg (27.0-33.0); Mean Corpuscular Volume 92.5 fL (80.0-98.0); NRBC Abs Auto 0.000 X10*3/uL (0.0-0.012); NRBC Pct Auto 0.0 /100WBC (0.0-0.2); Platelet Count 275 X10*3/uL (160-400); Red Blood Count 3.86 X10*6/uL (4.20-5.50); White Blood Count 6.3 X10*3/uL (4.8-10.8)
[2025-07-24 00:47] LABS: COVID-19 Test Negative (Negative); IDNOW Serial# 55D5AD1C; IDNOW Serial# 58CA691E; Influenza B2 Negative (Negative)
--- NOTE | 2025-07-24 00:48 | PC.NURSE ---
pt in bed when this RN entered the room, boyfriend at bedside. pt reports upper abdominal pain that has not resolved since visit yesterday, headache began today, 7/10 pain for both.
--- NOTE | 2025-07-24 00:51 | ED.GENADULT ---
HPI - General Adult General Chief complaint: Abdominal Pain Stated complaint: stomach pain Time Seen by Provider: 07/24/25 00:06 Source: patient Limitations: no limitations History of Present Illness ED Provider: Cathy Abel PA-C HPI narrative: 24F 24F with past medical history of gastritis, asthma, seizure disorder on lamotrigine, 3 month presents to the ED for evaluation of epigastric abdominal pain which radiates to the back. States it has been going on for 2-3 days. Describes it as sharp, postprandial, with associated nausea and no vomiting. Endorsing regurgitation and sour taste. Denies diarrhea, constipation. No hx of abdominal surgeries. Has not been eating/drinking much due to pain. Reporting new headache. Denies fever/chills, sick contacts, diarrhea/constipation. Last BM 2 days ago. States she was here 2 days ago for the same problem but it has not resolved. Related Data Previous Rx's ?Medication ?Instructions ?Recorded omeprazole 40 mg capsule,delayed 40 mg PO DAILY #14 caps 07/23/20 release ondansetron HCl 4 mg tablet 4 mg PO Q6H PRN nausea and 07/23/20 (Zofran) vomiting #7 tabs ondansetron 4 mg disintegrating 4 mg PO Q6H PRN nausea and 11/04/21 tablet vomiting #7 tabs acetaminophen 500 mg tablet 500 mg PO Q6H PRN pain or fever 01/03/22 (Tylenol Extra Strength) #20 tabs lidocaine 5 % topical patch 1 patch topical DAILY PRN pain #30 01/03/22 (Lidoderm) ea naproxen 500 mg tablet 500 mg PO BID PRN pain 10 days #20 01/03/22 tabs ondansetron HCl 4 mg tablet 4 mg PO Q8H PRN nausea and 01/18/22 vomiting 4 days #12 tabs metronidazole 500 mg tablet 500 mg PO BID 7 days #14 tabs 06/22/22 acetaminophen 500 mg tablet 500 mg PO Q6H PRN fever or pain 08/04/22 (Tylenol Extra Strength) #14 tabs cyclobenzaprine 5 mg tablet 5 mg PO Q8H PRN pain (scale score 08/04/22 7-10) 5 days #14 tabs lidocaine 5 % topical patch 1 patch topical DAILY PRN pain #30 08/04/22 (Lidoderm) ea naproxen 500 mg tablet 500 mg PO BID PRN pain 10 days #20 08/04/22 tabs acetaminophen 500 mg tablet 1,000 mg (2 x 500 mg) PO QID PRN 08/24/22 (Tylenol Extra Strength) fever or pain #14 tabs ibuprofen 800 mg tablet 800 mg PO Q8H PRN pain #14 tabs 08/24/22 pyridoxine (vitamin B6) 25 mg 25 mg PO TID 30 days #90 tabs 11/18/22 tablet cimetidine 800 mg tablet 800 mg PO BID #60 tabs 01/02/23 metoclopramide HCl 10 mg tablet 10 mg PO Q6H PRN nausea and 01/02/23 (Reglan) vomiting #20 tabs cephalexin 500 mg capsule 500 mg PO TID 7 days #21 caps 01/28/23 cefuroxime axetil 250 mg tablet 250 mg PO BID 7 days #14 tabs 06/22/23 ondansetron 4 mg disintegrating 4 mg PO Q6-8H PRN nausea and 06/22/23 tablet vomiting #10 tabs ibuprofen 600 mg tablet 600 mg PO Q6H PRN fever or pain 08/11/23 #20 tabs ondansetron 4 mg disintegrating 4 mg PO DAILY PRN nausea and 01/13/24 tablet vomiting #7 tabs nitrofurantoin 100 mg PO BID 7 days #14 caps 12/20/24 monohydrate/macrocrystals 100 mg capsule (Macrobid) ondansetron 4 mg disintegrating 4 mg PO Q6-8H PRN nausea and 12/20/24 tablet vomiting #20 tabs famotidine 20 mg tablet 20 mg PO BEDTIME #30 tabs 07/22/25 sucralfate 1 gram tablet (Carafate) 1 g PO Q6H 7 days #28 tabs 07/22/25 docusate sodium 100 mg capsule 100 mg PO BID #10 caps 07/24/25 (Colace) polyethylene glycol 3350 17 See Rx Instructions .Route 07/24/25 gram/dose oral powder (Miralax) .COMPLEX #238 grams Allergies Allergy/AdvReac Type Severity Reaction Status Date / Time No Known Allergies Allergy Verified 07/23/25 23:59 Review of Systems Review of Systems: Yes all other systems are reviewed and are negative Constitutional: Constitutional: Reports anorexia, Denies fever(s) and Reports headache(s) ENT: Denies dizziness, Reports headache(s) and Reports post nasal drip Cardiovascular: Cardiovascular: Denies chest pain and Denies dyspnea Respiratory: Respiratory: Denies dyspnea Gastrointestinal: Gastrointestinal: Reports abdominal pain, Denies melena, Denies hematochezia, Denies constipation, Denies diarrhea, Reports nausea and Denies vomiting Neurologic: Denies dizziness, Reports headache(s) and Denies seizure-like activity (last seizure Oct 2024) [facility] Past Medical History Attestation statement: The following information was validated with the patient. Medical History Syncope Asthma Social History Social History Alcohol intake: never Smoked in Last 30 Days: No Use of substances other than those prescribed or required for medical reasons: No Substance Use Type: Marijuana Advance Directives: No Advance Directives Information Provided: Yes Patient : No Physical Exam ED Vital Signs: Vital Signs - 24 hr 07/23/25 23:55 07/24/25 01:16 07/24/25 03:25 Temperature 97.7 F 97.8 F 98.2 F Pulse Rate 83 49 L 89 Respiratory Rate 18 18 16 Blood Pressure 118/72 102/52 L 111/65 Pulse Oximetry 99 97 97 Oxygen Delivery Method Room Air Room Air Room Air BMI result Body Mass Index 34.8 Const Other: Alert well-appearing General: no acute distress, alert and awake Nutritional Appearance: overweight Orientation/consciousness: patient oriented x3 Resp Effort & Inspection: normal respiratory effort Auscultation: clear to auscultation bilaterally Cardio Other: Normal peripheral perfusion Rate: regular rate Rhythm: regular rhythm GI Other: Abdomen is soft, mild tenderness epigastric region without guarding, obese abdomen no distention Inspection: Yes normal to inspection Palpation (GI): Soft to palpation, Tenderness to palpation present (GI) in the epigastrum, no hepatosplenomegaly and No Rebound tenderness present Auscultation: normal bowel sounds Skin Other: Warm dry no rash Neuro General: patient oriented x3, gait normal, no focal motor deficits and CN's II-XI intact bilaterally Psych Other: cooperative Course Reevaluation(s) Reevaluation #1: I Cathy Abel PA-C personally obtain the history, performed the physical and assessment.. Cristal MONTIEL helped to formulate the documentation Medications Administered Discontinued Medications Generic Name Dose Route Start Last Admin Trade Name Yuri PRN Reason Stop Dose Admin Simethicone 40 mg 07/24/25 00:51 07/24/25 01:41 Simethicone 40 Mg/0.6 Ml Oral.Susp PO 07/24/25 00:52 40 mg ONCE ONE Administration Sucralfate 1 gm 07/24/25 00:51 07/24/25 01:41 Sucralfate Oral Suspension 1 Gm/10 Ml Oral.Susp PO 07/24/25 00:52 1 gm ONCE ONE Administration Medical Decision Making Medical Decision Making MDM Narrative: 24F with past medical history of gastritis, asthma, seizure disorder on lamotrigine, 3 month presents to the ED for evaluation of epigastric abdominal pain which radiates to the back. States it has been going on for 2-3 days. Describes it as sharp, postprandial, with associated nausea and no vomiting. Endorsing regurgitation and sour taste. Denies diarrhea, constipation. No hx of abdominal surgeries. Has not been eating/drinking much due to pain. Reporting new headache. Denies fever/chills, sick contacts, diarrhea/constipation. Last BM 2 days ago. States she was here 2 days ago for the same problem but it has not resolved. I've considered the following diagnoses: cholecystitis/choledocholithiasis, pancreatitis, appendicitis, ruptured ectopic, SBO, PUD, reflux, constipation, gastritis, biliary colic. No fever or RUQ with palpation, no leukocytosis and LFTs/alk phos/bilirubin/lipase wnl. HCG <2. States last BM was 2 days ago. Denies hematochezia or melena. This is the patient's 2nd visit to the emergency room for same presentation, she was given medication for reflux. Imaging was not obtained. Her labs are completely unremarkable, there have been no change in the symptoms, her exam was benign, this is most likely constipation, she only has bowel movements every 2-3 days. Adding on a KUB. Giving Carafate and simethicone. Plan: KUB to evaluate stool burden I've reviewed the following tests: CBC showing mild anemia, no leukocytosis. CMP. Lipase. HCG. Viral panel negative. KUB Findings: Bowel-gas pattern is within normal limits. There is a moderate amount of stool in the colon greatest in the ascending and transverse colon. There is no evidence of bowel obstruction. No calcifications are seen within the regions of the kidneys or ureters. Impression: Bowel-gas pattern is within normal limits. Differential Diagnosis Differential Diagnoses: The differential diagnosis associated with the presentation includes see [facility] Admission/Observation Consideration of admission/observation: Escalation of care including admission/observation considered Not applicable Lab Data [facility] Lab Attestation statement: I reviewed the patient's lab results. 07/24/25 00:25 07/24/25 00:25 Labs: Lab Results 07/24/25 Range/Units 00:25 WBC 6.3 (4.8-10.8) X10*3/uL RBC 3.86 L (4.20-5.50) X10*6/uL Hgb 11.8 L (12.0-16.0) g/dl Hct 35.7 L (37.0-47.0) % MCV 92.5 (80.0-98.0) fL MCH 30.6 (27.0-33.0) pg MCHC 33.1 (31.0-35.0) g/dl RDW 13.4 (11.0-16.0) % Plt Count 275 (160-400) X10*3/uL MPV 10.0 (9.4-12.3) fL Immature Gran % (Auto) 0.2 (0.0-0.4) % Neut % (Auto) 43.8 L (45-73) % Lymph % (Auto) 40.4 H (20-40) % Bremer % (Auto) 7.0 (2-11) % Eos % (Auto) 8.1 H (0-4) % Baso % (Auto) 0.5 (0-2) % Lymph # (Auto) 2.5 (1.2-4.9) X10*3/uL Bremer # (Auto) 0.4 (0.1-1.2) X10*3/uL Eos # (Auto) 0.5 H (0.0-0.4) X10*3/uL Baso # (Auto) 0.0 (0.0-0.2) X10*3/uL Abs Immat Gran (auto) 0.01 (0.00-0.03) X10*3/uL Absolute Neuts (auto) 2.8 (2.0-8.3) x10*3/uL Absolute Nucleated RBC 0.000 (0.0-0.012) X10*3/uL Nucleated RBC % (auto) 0.0 (0.0-0.2) /100WBC Sodium 141 (135-145) mmol/L Potassium 4.1 (3.3-5.1) mmol/L Chloride 107 (96-108) mmol/L Carbon Dioxide 25 (22-29) mmol/L Anion Gap 13 (12-20) BUN 11 (9-16) mg/dL Creatinine 0.63 (0.5-1.4) mg/dL Estim Creat Clear Calc 141.5 Estimated GFR > 60 Random Glucose 98 (60-115) mg/dL Calcium 9.3 D (8.4-10.2) mg/dL Magnesium 2.0 (1.6-2.6) mg/dL Total Bilirubin 0.4 (0.0-1.0) mg/dL AST 23 (5-31) U/L ALT 28 (0-31) U/L Alkaline Phosphatase 52 (39-117) U/L Total Protein 7.2 (6.5-8.0) g/dL Albumin 4.3 (3.5-5.0) g/dL Lipase 18 (8-78) U/L Beta HCG, Quant < 2 mIU/mL COVID-19 (MAGNO) Negative (Negative) COVID-19 Clin Com See Note Influenza Type A (ALLEY) Negative (Negative) Influenza Type B (ALLEY) Negative (Negative) Influenza A & B Note See Note Radiology Impression Discussion of test interpretation with radiology: I have reviewed the radiologist's reading. Discharge Plan Discharge Clinical Impression: Constipation Patient Disposition: Home, Self-Care Instructions: Constipation (ED) Additional Instructions: You were found to be considerably constipated. This can exacerbate acid reflux symptoms and cause nausea. See home care instructions. Use the Colace, this is a stool softener, twice a day. Use the MiraLax, 3 to 4 times a day, until you begin having multiple large volume bowel movements. Once you clear your current stool burden, you need to stay on these medications to help prevent constipation. You may require the Colace daily, with the MiraLax daily, to maintain regularity. Follow up with primary care as needed. Prescriptions: New docusate sodium [Colace] 100 mg capsule 100 mg PO BID Qty: 10 0RF polyethylene glycol 3350 [Miralax] 17 gram/dose powder See Rx Instructions .ROUTE .COMPLEX Qty: 238 0RF Rx Instructions: 17 g orally, per your discharge instructions No Action ondansetron HCl [Zofran] 4 mg tablet 4 mg PO Q6H PRN (Reason: nausea and vomiting) Qty: 7 0RF omeprazole 40 mg capsule,delayed release(DR/EC) 40 mg PO DAILY Qty: 14 0RF ondansetron 4 mg tablet,disintegrating 4 mg PO Q6H PRN (Reason: nausea and vomiting) Qty: 7 0RF ondansetron HCl 4 mg tablet 4 mg PO Q8H PRN (Reason: nausea and vomiting) 4 Days Qty: 12 0RF metronidazole 500 mg tablet 500 mg PO BID 7 Days Qty: 14 0RF acetaminophen [Tylenol Extra Strength] 500 mg tablet 500 mg PO Q6H PRN (Reason: fever or pain) Qty: 14 0RF naproxen 500 mg tablet 500 mg PO BID PRN (Reason: pain) 10 Days Qty: 20 0RF cyclobenzaprine 5 mg tablet 5 mg PO Q8H PRN (Reason: pain (scale score 7-10)) 5 Days Qty: 14 0RF lidocaine [Lidoderm] 5 % adhesive patch,medicated 1 patch topical DAILY MDD remove after 12 hours PRN (Reason: pain) Qty: 30 0RF Rx Instructions: leave on most painful area for up to 12 hrs acetaminophen [Tylenol Extra Strength] 500 mg tablet 500 mg PO Q6H PRN (Reason: pain or fever) Qty: 20 0RF lidocaine [Lidoderm] 5 % adhesive patch,medicated 1 patch topical DAILY MDD remove after 12 hours PRN (Reason: pain) Qty: 30 0RF Rx Instructions: leave on most painful area for up to 12 hrs naproxen 500 mg tablet 500 mg PO BID PRN (Reason: pain) 10 Days Qty: 20 0RF ibuprofen 800 mg tablet 800 mg PO Q8H PRN (Reason: pain) Qty: 14 0RF acetaminophen [Tylenol Extra Strength] 500 mg tablet 1,000 mg PO QID PRN (Reason: fever or pain) Qty: 14 0RF pyridoxine (vitamin B6) 25 mg tablet 25 mg PO TID 30 Days Qty: 90 0RF cimetidine 800 mg tablet 800 mg PO BID Qty: 60 0RF Rx Instructions: administer with meals metoclopramide HCl [Reglan] 10 mg tablet 10 mg PO Q6H PRN (Reason: nausea and vomiting) Qty: 20 0RF cefuroxime axetil 250 mg tablet 250 mg PO BID 7 Days Qty: 14 0RF ondansetron 4 mg tablet,disintegrating 4 mg PO Q6-8H PRN (Reason: nausea and vomiting) Qty: 10 0RF ibuprofen 600 mg tablet 600 mg PO Q6H PRN (Reason: fever or pain) Qty: 20 0RF ondansetron 4 mg tablet,disintegrating 4 mg PO DAILY PRN (Reason: nausea and vomiting) Qty: 7 0RF ondansetron 4 mg tablet,disintegrating 4 mg PO Q6-8H PRN (Reason: nausea and vomiting) Qty: 20 0RF nitrofurantoin monohyd/m-cryst [Macrobid] 100 mg capsule 100 mg PO BID 7 Days Qty: 14 0RF Rx Instructions: must administer with a meal/food cephalexin 500 mg capsule 500 mg PO TID 7 Days Qty: 21 0RF sucralfate [Carafate] 1 gram tablet 1 g PO Q6H 7 Days Qty: 28 0RF famotidine 20 mg tablet 20 mg PO BEDTIME Qty: 30 0RF Interventions: ED Discharge Assessment Last Done: 07/24/25 03:25 Discharge Date/Time: 07/24/25 03:28 Print Language: German
[2025-07-24 00:59] LABS: Alanine Aminotransferase 28 U/L (0-31); Albumin Level 4.3 g/dL (3.5-5.0); Alkaline Phosphatase 52 U/L (39-117); Anion Gap 13 (12-20); Aspartate Amino Transferase 23 U/L (5-31); Blood Urea Nitrogen 11 mg/dL (9-16); Calcium 9.3 mg/dL (8.4-10.2); Carbon Dioxide 25 mmol/L (22-29); Chloride 107 mmol/L (96-108); Creatinine Clr Calc Pharmacy 141.5; Estimated Glomerular Filt Rate > 60; Lipase 18 U/L (8-78); Magnesium 2.0 mg/dL (1.6-2.6); Potassium 4.1 mmol/L (3.3-5.1); Sodium 141 mmol/L (135-145); Total Protein 7.2 g/dL (6.5-8.0)
--- NOTE | 2025-07-24 01:11 | PC.NURSE ---
eilu donovan contacted to bring down medication as we are put of this floor, eliu donovan confirmed she would be down shortly.
[2025-07-24 01:16] VITALS: BP 102/52; PULSE 49; RESP 18; TEMP 36.6; O2SAT 97
[2025-07-24] MEDS: Sucralfate Oral Suspension 1 GM/10 ML ORAL.SUSP PO (01:41)
[2025-07-24] MEDS: Simethicone 40 MG/0.6 ML ORAL.SUSP PO (01:41)
[2025-07-24 03:25] VITALS: BP 111/65; PULSE 89; RESP 16; TEMP 36.8; O2SAT 97
== END 2025-07-24 03:28 | disposition home or self-care (01) ==
PROVIDERS: Physician Assistant Medical; Emergency Provider Emergency Medicine
DX: K59.00 Constipation, unspecified (principal); R10.13 Epigastric pain; M54.50 Low back pain, unspecified; Z11.52 Encounter for screening for COVID-19; Z79.899 Other long term (current) drug therapy
CPT/HCPCS: 74018; 80053; 83690; 83735; 84702; 85025; 87502; 87635; 99283; 99284

== ENCOUNTER → 2025-07-24 00:06 | Outpatient (BNV) | payer MEDICAID, SELFPAY | PROVIDERS: Emergency Provider Emergency Medicine; Visit Provider Radiology Diagnostic Radiology | DX: R10.9 Unspecified abdominal pain (principal); K59.09 Other constipation | CPT/HCPCS: 74018 ==